=== PATIENT | male | born 1965 | race Caucasian/White ===

== ENCOUNTER 2017-12-12 09:56 | Observation (INO) | payer MEDICARE, OTHER ==
[2017-12-12 11:10] LABS: ADD MAN DIFF? NO
[2017-12-12 11:13] LABS: WHITE BLOOD COUNT 7.3 10^3/ul (4.8-10.8)
[2017-12-12 11:13] LABS: BASOPHILS % 0.1 % (0.0-2.0); EOSINOPHILS # 0.2 10^3/ul (0.0-0.5); EOSINOPHILS % 3.3 % (0.0-7.0); HEMATOCRIT 43.8 % (42.0-52.0); HEMOGLOBIN 14.6 g/dl (14.0-18.0); IMMATURE GRANS #M 0.02 10^3/ul; IMMATURE GRANS % (M) 0.3 %; LYMPHOCYTES # 1.3 10^3/ul (0.8-2.9); LYMPHOCYTES % 17.4 % (15.0-51.0); MEAN CORPUSCULAR HEMOGLOBIN 28.2 pg (29.0-33.0); MEAN CORPUSCULAR HGB CONC 33.3 g/dl (32.0-37.0); MEAN CORPUSCULAR VOLUME 84.7 fl (82.0-101.0); MEAN PLATELET VOLUME 11.5 fl (7.4-10.4); MONOCYTE # 0.6 10^3/ul (0.3-0.9); MONOCYTES % 7.6 % (0.0-11.0); NEUTROPHIL # 5.2 10^3/ul (1.6-7.5); NEUTROPHILS % 71.3 % (39.0-77.0); PLATELET COUNT 198 10^3/UL (140-415); RED BLOOD COUNT 5.17 10^6/ul (4.70-6.10)
[2017-12-12 11:31] LABS: ALANINE AMINOTRANSFERASE 17 IU/L (13-69); ALBUMIN 3.6 g/dl (3.3-4.9); ALBUMIN/GLOBULIN RATIO 1.05; ALKALINE PHOSPHATASE 136 IU/L (42-121); ANION GAP 13 (8-16); ASPARTATE AMINO TRANSFERASE 24 IU/L (15-46); BILIRUBIN,INDIRECT 0.3 mg/dl (0-1.1); BILIRUBIN,TOTAL 0.3 mg/dl (0.2-1.3); BLOOD UREA NITROGEN 15 mg/dl (7-20); CALCIUM 8.9 mg/dl (8.4-10.2); CARBON DIOXIDE 26 mmol/L (21-31); CHLORIDE 103 mmol/L (97-110); CREATININE 0.81 mg/dl (0.61-1.24); GLUCOSE 258 mg/dl (70-220); POTASSIUM 4.2 mmol/L (3.5-5.1); SODIUM 138 mmol/L (135-144)
[2017-12-12] MEDS: ASPIRIN 325 MG TAB PO (11:34)
[2017-12-12] MEDS: NITROGLYCERIN 2% 1 GM OINT PKT TD (11:34)
[2017-12-12 11:42] LABS: TROPONIN-I 0.024 ng/ml (0.000-0.120)
[2017-12-12] MEDS ORDERED: ACETAMINOPHEN 325 MG TAB PO (12:30)
[2017-12-12] MEDS ORDERED: ONDANSETRON 4 MG INJ IV ×2 (12:30→15:00)
[2017-12-12] MEDS ORDERED: morphine 2 MG INJ IV (15:00)
[2017-12-12] MEDS ORDERED: NACL 0.9% 3 ML SYG IV (15:00)
[2017-12-12 15:47] LABS: CREATINE KINASE 94 IU/L (23-200)
[2017-12-12] MEDS: SOD CHLORIDE 0.9% 1,000 ML IV (15:59)
[2017-12-12 16:00] LABS: CK INDEX 1.4; CK-MB 1.27 ng/ml (0.0-2.4); TROPONIN-I 0.019 ng/ml (0.000-0.120)
[2017-12-12] MEDS: FUROSEMIDE 40 MG TAB PO (17:05)
[2017-12-12] MEDS: INSULIN ASPART [NOVOLOG] 3 ML PEN SC ×2 (17:15→22:05)
[2017-12-12] MEDS: FAMOTIDINE 20 MG INJ IV (20:24)
[2017-12-12 21:13] LABS: CREATINE KINASE 93 IU/L (23-200)
[2017-12-12 21:25] LABS: CK INDEX 1.4; CK-MB 1.26 ng/ml (0.0-2.4); TROPONIN-I 0.017 ng/ml (0.000-0.120)
[2017-12-12] MEDS: ACETAMINOPHEN 325 MG TAB PO (22:42)
[2017-12-13] MEDS: ACCU-CHEK XX (01:11)
[2017-12-13] MEDS: FUROSEMIDE 40 MG TAB PO ×2 (05:20→17:25)
[2017-12-13 06:13] LABS: ADD MAN DIFF? NO
[2017-12-13 06:23] LABS: WHITE BLOOD COUNT 7.3 10^3/ul (4.8-10.8)
[2017-12-13 06:23] LABS: BASOPHILS % 0.4 % (0.0-2.0); EOSINOPHILS # 0.3 10^3/ul (0.0-0.5); HEMATOCRIT 45.7 % (42.0-52.0); HEMOGLOBIN 15.2 g/dl (14.0-18.0); IMMATURE GRANS #M 0.04 10^3/ul; IMMATURE GRANS % (M) 0.5 %; LYMPHOCYTES # 1.9 10^3/ul (0.8-2.9); LYMPHOCYTES % 26.2 % (15.0-51.0); MEAN CORPUSCULAR HEMOGLOBIN 27.9 pg (29.0-33.0); MEAN CORPUSCULAR HGB CONC 33.3 g/dl (32.0-37.0); MEAN PLATELET VOLUME 11.7 fl (7.4-10.4); MONOCYTE # 0.7 10^3/ul (0.3-0.9); MONOCYTES % 9.4 % (0.0-11.0); NEUTROPHIL # 4.4 10^3/ul (1.6-7.5); NEUTROPHILS % 59.5 % (39.0-77.0); PLATELET COUNT 203 10^3/UL (140-415); RED BLOOD COUNT 5.44 10^6/ul (4.70-6.10); RED CELL DISTRIBUTION WIDTH 14.3 % (11.5-14.5)
[2017-12-13 06:59] LABS: ALANINE AMINOTRANSFERASE 24 IU/L (13-69); ALBUMIN 3.5 g/dl (3.3-4.9); ALBUMIN/GLOBULIN RATIO 0.92; ALKALINE PHOSPHATASE 104 IU/L (42-121); ANION GAP 11 (8-16); ASPARTATE AMINO TRANSFERASE 21 IU/L (15-46); BILIRUBIN,INDIRECT 0.5 mg/dl (0-1.1); BILIRUBIN,TOTAL 0.5 mg/dl (0.2-1.3); BLOOD UREA NITROGEN 13 mg/dl (7-20); CALCIUM 8.7 mg/dl (8.4-10.2); CARBON DIOXIDE 29 mmol/L (21-31); CHLORIDE 102 mmol/L (97-110); CHOL/HDL RATIO 5.3 RATIO; CHOLESTEROL 170 mg/dl (100-200); CREATININE 0.85 mg/dl (0.61-1.24); GLUCOSE 155 mg/dl (70-220); HDL CHOLESTEROL 32 mg/dl (28-71); LDL CHOLESTEROL,CALCULATED 98 mg/dl; POTASSIUM 3.9 mmol/L (3.5-5.1); SODIUM 138 mmol/L (135-144); TOTAL PROTEIN 7.3 g/dl (6.1-8.1); TRIGLYCERIDES 201 mg/dl (0-149)
[2017-12-13 07:52] LABS: HEMOGLOBIN A1C 10.9 % (0-5.9)
[2017-12-13] MEDS: INSULIN ASPART [NOVOLOG] 3 ML PEN SC ×4 (08:01→22:49)
[2017-12-13] MEDS: INSULIN GLARGINE [LANTus] (100 UNITS/ML) SYG SC (08:01)
[2017-12-13] MEDS: ASPIRIN 81 MG TAB PO (08:46)
[2017-12-13] MEDS: TERBINAFINE 250 MG TAB PO (08:46)
[2017-12-13] MEDS: CLOPIDOGREL 75 MG TAB PO (08:46)
[2017-12-13] MEDS: BENAZEPRIL 40 MG TAB PO (08:47)
[2017-12-13] MEDS: FAMOTIDINE 20 MG INJ IV ×2 (08:47→20:13)
[2017-12-13] MEDS: ENOXAPARIN 30 MG/0.3 ML SYG SC (08:52)
[2017-12-13] MEDS: ACETAMINOPHEN 325 MG TAB PO (13:08)
[2017-12-13] MEDS: ISOSORBIDE DINITRATE 20 MG TAB PO ×2 (13:08→20:13)
[2017-12-13] MEDS: METOPROLOL 25 MG TAB PO (20:13)
[2017-12-14] MEDS: ACCU-CHEK XX (02:50)
[2017-12-14] MEDS: FUROSEMIDE 40 MG TAB PO (06:35)
[2017-12-14] MEDS: INSULIN ASPART [NOVOLOG] 3 ML PEN SC ×3 (07:55→18:20)
[2017-12-14] MEDS: ASPIRIN 81 MG TAB PO (08:24)
[2017-12-14] MEDS: TERBINAFINE 250 MG TAB PO (08:24)
[2017-12-14] MEDS: CLOPIDOGREL 75 MG TAB PO (08:24)
[2017-12-14] MEDS: ISOSORBIDE DINITRATE 20 MG TAB PO ×2 (08:25→12:16)
[2017-12-14] MEDS: FAMOTIDINE 20 MG INJ IV (08:25)
[2017-12-14] MEDS: BENAZEPRIL 40 MG TAB PO (08:25)
[2017-12-14] MEDS: METOPROLOL 25 MG TAB PO (08:27)
[2017-12-14] MEDS: ENOXAPARIN 30 MG/0.3 ML SYG SC (08:30)
[2017-12-14] MEDS: INSULIN GLARGINE [LANTus] (100 UNITS/ML) SYG SC (08:32)
[2017-12-14] MEDS: REGADENOSON 0.4 MG/5 ML SYG (10:17)
[2017-12-14] MEDS ORDERED: GLUCOSE GEL 15 GRAM TUBE BUCCAL (16:00)
[2017-12-14] MEDS ORDERED: GLUCOSE GEL 15 GRAM TUBE PO ×2 (16:00)
[2017-12-14] MEDS ORDERED: DEXTROSE 50% 50 ML SYRINGE IV ×2 (16:00)
[2017-12-14] MEDS ORDERED: GLUCAGON 1 MG INJ IM (16:00)
[2017-12-14] MEDS ORDERED: ACCU-CHEK XX (17:25)
[2017-12-15] MEDS ORDERED: LINAGLIPTIN 5 MG TABLET PO (09:00)
== END 2017-12-14 19:24 | disposition left against medical advice (07) ==
LOC: E/R 09:56 → TEL 12:16
DX: I25.10 Atherosclerotic heart disease of native coronary artery without angina pectoris (principal); Z95.5 Presence of coronary angioplasty implant and graft; I42.9 Cardiomyopathy, unspecified; I10 Essential (primary) hypertension; E78.5 Hyperlipidemia, unspecified; E11.65 Type 2 diabetes mellitus with hyperglycemia; E66.01 Morbid (severe) obesity due to excess calories; Z68.41 Body mass index [BMI] 40.0-44.9, adult; Z79.4 Long term (current) use of insulin; Z79.82 Long term (current) use of aspirin
CPT/HCPCS: 36415; 71045; 78452; 80053; 80061; 82550; 82553; 82962; 83036; 84484; 85025; 93005; 93017; 93306; 99217; 99285-25; G0378

== ENCOUNTER 2018-03-01 09:38 | Emergency (ER) | payer MEDICARE, OTHER ==
[2018-03-01 10:50] LABS: ADD MAN DIFF? NO
[2018-03-01 10:54] LABS: WHITE BLOOD COUNT 8.6 10^3/ul (4.8-10.8)
[2018-03-01 10:54] LABS: BASOPHILS % 0.2 % (0.0-2.0); EOSINOPHILS # 0.1 10^3/ul (0.0-0.5); EOSINOPHILS % 1.1 % (0.0-7.0); HEMATOCRIT 43.6 % (42.0-52.0); HEMOGLOBIN 14.4 g/dl (14.0-18.0); LYMPHOCYTES # 1.1 10^3/ul (0.8-2.9); LYMPHOCYTES % 12.4 % (15.0-51.0); MEAN CORPUSCULAR VOLUME 84.8 fl (82.0-101.0); MEAN PLATELET VOLUME 11.9 fl (7.4-10.4); MONOCYTE # 0.6 10^3/ul (0.3-0.9); NEUTROPHIL # 6.8 10^3/ul (1.6-7.5); NEUTROPHILS % 78.9 % (39.0-77.0); PLATELET COUNT 221 10^3/UL (140-415); RED BLOOD COUNT 5.14 10^6/ul (4.70-6.10); RED CELL DISTRIBUTION WIDTH 13.8 % (11.5-14.5)
[2018-03-01 10:55] LABS: ADD UMIC YES; UR ASCORBIC ACID NEGATIVE (NEGATIVE); UR BILIRUBIN (Dip) NEGATIVE (NEGATIVE); UR BLOOD (Dip) 1+ mg/dL (NEGATIVE); UR CLARITY SLIGHTLY CLOUDY (CLEAR); UR COLOR YELLOW (YELLOW); UR GLUCOSE (Dip) 3+ mg/dL (NEGATIVE); UR KETONES (Dip) 1+ mg/dL (NEGATIVE); UR LEUKOCYTE ESTERASE (Dip) NEGATIVE Leu/ul (NEGATIVE); UR MUCUS FEW /HPF (NONE SEEN); UR NITRITE (Dip) NEGATIVE (NEGATIVE); UR RBC 3 /HPF (0-5); UR SPECIFIC GRAVITY (Dip) 1.028 (1.003-1.030); UR TOTAL PROTEIN (Dip) 3+ mg/dl (NEGATIVE); UR UROBILINOGEN (Dip) 2+ mg/dL (NEGATIVE); UR WBC 2 /HPF (0-5)
[2018-03-01] MEDS: morphine 4 MG/ML VIAL IV (11:05)
[2018-03-01] MEDS: IBUPROFEN 800 MG TAB PO (11:06)
[2018-03-01] MEDS: CEFEPIME 2GM/50 ML (PMX) 50 ML IVPB (11:06)
[2018-03-01] MEDS: ACETAMINOPHEN 500 MG TAB PO (11:06)
[2018-03-01] MEDS: SODIUM CHLORIDE 0.9% 1L BAG IV* (11:06)
[2018-03-01] MEDS: ONDANSETRON 4 MG INJ IV (11:07)
[2018-03-01 11:13] LABS: LACTIC ACID 1.1 mmol/L (0.5-2.0)
[2018-03-01 11:14] LABS: ALANINE AMINOTRANSFERASE 18 IU/L (13-69); ALBUMIN 3.1 g/dl (3.3-4.9); ALBUMIN/GLOBULIN RATIO 0.83; ALKALINE PHOSPHATASE 111 IU/L (42-121); AMYLASE 66 U/L (11-123); ANION GAP 11 (5-13); ASPARTATE AMINO TRANSFERASE 21 IU/L (15-46); BILIRUBIN,INDIRECT 0.7 mg/dl (0-1.1); BILIRUBIN,TOTAL 0.7 mg/dl (0.2-1.3); BLOOD UREA NITROGEN 16 mg/dl (7-20); CALCIUM 8.9 mg/dl (8.4-10.2); CARBON DIOXIDE 25 mmol/L (21-31); CHLORIDE 102 mmol/L (97-110); CREATININE 0.99 mg/dl (0.61-1.24); Estimated GFR > 60 mL/min (>60); GLUCOSE 253 mg/dl (70-220); LIPASE 64 U/L (23-300); POTASSIUM 3.9 mmol/L (3.5-5.1); SODIUM 138 mmol/L (135-144); TOTAL PROTEIN 6.8 g/dl (6.1-8.1)
[2018-03-01 11:15] LABS: INR 1.12; PROTIME 14.6 Sec (11.9-14.9); PT RATIO 1.1
[2018-03-01 11:16] LABS: PARTIAL THROMBOPLASTIN TIME 33.2 Sec (23.0-35.0)
[2018-03-01] MEDS: ALBUTEROL 0.083% (NEB) 2.5 MG/3 ML AMP NEB (11:19)
[2018-03-01] MEDS: IPRATROPIUM (NEB) 0.5 MG/2.5 ML AMP NEB (11:19)
[2018-03-01 11:23] LABS: B-TYPE NATRIURETIC PEPTIDE 2560 PG/ML (0-125)
[2018-03-01 11:25] LABS: TROPONIN-I 0.093 ng/ml (0.000-0.120)
[2018-03-01] MEDS: IOHEXOL 300MG/ML 150 ML BTL (11:58)
[2018-03-01] MEDS: SOD CHLORIDE 0.9% 100 ML (11:58)
[2018-03-01] MEDS: VANCOMYCIN 1 GM (PMX) 250 ML IVPB (12:24)
== END 2018-03-01 14:30 | disposition home or self-care (01) ==
LOC: E/R 09:38
DX: R10.13 Epigastric pain (principal); J06.9 Acute upper respiratory infection, unspecified; I11.0 Hypertensive heart disease with heart failure; I50.9 Heart failure, unspecified; E11.65 Type 2 diabetes mellitus with hyperglycemia; R65.10 Systemic inflammatory response syndrome (SIRS) of non-infectious origin without acute organ dysfunction; R05 Cough; Z86.73 Personal history of transient ischemic attack (TIA), and cerebral infarction without residual deficits; Z98.61 Coronary angioplasty status; Z79.82 Long term (current) use of aspirin; Z79.4 Long term (current) use of insulin
CPT/HCPCS: 36415; 71045; 74177; 80053; 81001; 82150; 83605; 83690; 83880; 84484; 85025; 85610; 85730; 87040; 87086; 87400; 93005; 94664; 96365; 96375; 99291-25

== ENCOUNTER → 2018-04-15 | Day surgery (SDC) | payer OTHER ==
[~2018-04-15] MED LIST: ALBUTEROL 0.083% (NEB) 2.5 MG/3 ML AMP HHN; DIPHENHYDRAMINE 50 MG INJ IV; EPHEDrine SULFATE 50 MG/5 ML SYG IV; FENTAnyl 50 MCG/ML VIAL IV; LABETALOL HCL 20MG INJ IV; MIDAZOLAM 1 MG/ML 2 ML INJ IV; ONDANSETRON 4 MG INJ IV; hydrALAzine 20 MG INJ IV
== END | disposition home or self-care (01) ==
LOC: SUR 14:31
DX: K92.1 Melena (principal); K29.50 Unspecified chronic gastritis without bleeding; D12.3 Benign neoplasm of transverse colon; I10 Essential (primary) hypertension; E78.5 Hyperlipidemia, unspecified; E11.9 Type 2 diabetes mellitus without complications; E66.9 Obesity, unspecified
CPT/HCPCS: 43239; 88305; 88312

== ENCOUNTER 2018-05-11 14:10 | Inpatient (IN) | payer MEDICARE, OTHER ==
[2018-05-11 14:45] LABS: ADD MAN DIFF? NO
[2018-05-11 14:46] LABS: BASOPHIL # 0.1 10^3/ul (0.0-0.1); BASOPHILS % 0.4 % (0.0-2.0); EOSINOPHILS # 0.1 10^3/ul (0.0-0.5); EOSINOPHILS % 0.4 % (0.0-7.0); HEMATOCRIT 33.3 % (42.0-52.0); HEMOGLOBIN 10.5 g/dl (14.0-18.0); LYMPHOCYTES # 1.4 10^3/ul (0.8-2.9); LYMPHOCYTES % 6.9 % (15.0-51.0); MEAN CORPUSCULAR HEMOGLOBIN 25.3 pg (29.0-33.0); MEAN CORPUSCULAR HGB CONC 31.5 g/dl (32.0-37.0); MEAN CORPUSCULAR VOLUME 80.2 fl (82.0-101.0); MEAN PLATELET VOLUME 9.9 fl (7.4-10.4); MONOCYTE # 1.3 10^3/ul (0.3-0.9); NEUTROPHIL # 17.7 10^3/ul (1.6-7.5); NEUTROPHILS % 85.8 % (39.0-77.0); PLATELET COUNT 474 10^3/UL (140-415); RED BLOOD COUNT 4.15 10^6/ul (4.70-6.10); RED CELL DISTRIBUTION WIDTH 14.4 % (11.5-14.5)
[2018-05-11 14:46] LABS: WHITE BLOOD COUNT 20.7 10^3/ul (4.8-10.8)
[2018-05-11 15:03] LABS: ALANINE AMINOTRANSFERASE 7 IU/L (13-69); ALBUMIN 3.7 g/dl (3.3-4.9); ALBUMIN/GLOBULIN RATIO 0.63; ALKALINE PHOSPHATASE 220 IU/L (42-121); ANION GAP 10 (5-13); ASPARTATE AMINO TRANSFERASE 36 IU/L (15-46); BLOOD UREA NITROGEN 22 mg/dl (7-20); CALCIUM 9.7 mg/dl (8.4-10.2); CARBON DIOXIDE 32 mmol/L (21-31); CHLORIDE 89 mmol/L (97-110); CREATININE 1.06 mg/dl (0.61-1.24); Estimated GFR > 60 mL/min (>60); GLUCOSE 218 mg/dl (70-220); POTASSIUM 4.3 mmol/L (3.5-5.1); SODIUM 131 mmol/L (135-144); TOTAL PROTEIN 9.5 g/dl (6.1-8.1)
[2018-05-11] MEDS: PIPER-TAZO 3.375 GM IV (PMX) 100 ML IVPB (15:03)
[2018-05-11] MEDS: SODIUM CHLORIDE 0.9% 1L BAG IV* (15:03)
[2018-05-11 15:05] LABS: INR 1.08; PROTIME 14.1 Sec (11.9-14.9); PT RATIO 1.1
[2018-05-11] MEDS: VANCOMYCIN 1 GM (PMX) 250 ML IVPB (15:05)
[2018-05-11 15:06] LABS: PARTIAL THROMBOPLASTIN TIME 31.4 Sec (23.0-35.0)
[2018-05-11 15:14] LABS: TROPONIN-I < 0.012 ng/ml (0.000-0.120)
[2018-05-11 15:26] LABS: ADD UMIC YES; UR ASCORBIC ACID 40 mg/dL (NEGATIVE); UR BACTERIA MANY /HPF (NONE SEEN); UR BILIRUBIN (Dip) NEGATIVE (NEGATIVE); UR BLOOD (Dip) 1+ mg/dL (NEGATIVE); UR CLARITY CLOUDY (CLEAR); UR COLOR AMBER (YELLOW); UR GLUCOSE (Dip) 1+ mg/dL (NEGATIVE); UR KETONES (Dip) NEGATIVE (NEGATIVE); UR LEUKOCYTE ESTERASE (Dip) 3+ Leu/ul (NEGATIVE); UR MUCUS FEW /HPF (NONE SEEN); UR NITRITE (Dip) NEGATIVE (NEGATIVE); UR NONSQUAMOUS EPITHELIAL CELL 2 /HPF (NONE SEEN); UR RBC 9 /HPF (0-5); UR SPECIFIC GRAVITY (Dip) 1.018 (1.003-1.030); UR TOTAL PROTEIN (Dip) 2+ mg/dl (NEGATIVE); UR UROBILINOGEN (Dip) 1+ mg/dL (NEGATIVE); UR WBC > 182 /HPF (0-5)
[2018-05-11 15:53] LABS: AADO2 Arterial 164.2 mmHg (7.0-24.0); Allen Test ACCEPTAB; Arterial Base Excess 4.3 mmol/L (-3.0-3); Arterial Blood Gas Oxygen Sat 99.3 mmHG (95.0-98.0); Arterial COHb 0.3 % (0.0-3.0); Arterial Fraction of Oxyhgb 98.6 % (93.0-99.0); Arterial MetHb 0.4 % (0.0-1.5); Arterial pCO2 44.1 mmhg (35-45); MODE VENT - AC; Site Left Radial
[2018-05-11] MEDS: ACETAMINOPHEN 650 MG SUPP PR (16:54)
[2018-05-11] MEDS: SOD CHLORIDE 0.9% 1,000 ML IV (17:00)
[2018-05-11] MEDS: LIDOCAINE 1% (MPF) 5 ML VIAL SC (17:00)
[2018-05-11] MEDS: LORAZEPAM 2 MG INJ IV (18:00)
[2018-05-11] MEDS: NORepinephrine 8MG/250 ML (PMX 250 ML IV (18:00)
[2018-05-11] MEDS: VECURONIUM 10 MG VIAL IV (18:30)
[2018-05-11 20:56] LABS: LACTIC ACID 1.5 mmol/L (0.5-2.0)
[2018-05-11 20:58] LABS: CREATINE KINASE 58 IU/L (23-200)
[2018-05-11 21:09] LABS: CK INDEX 1.8; CK-MB 1.07 ng/ml (0.0-2.4); TROPONIN-I 0.054 ng/ml (0.000-0.120)
[2018-05-12] MEDS ORDERED: ONDANSETRON 4 MG INJ IV
[2018-05-12] MEDS ORDERED: BISACODYL 10 MG SUPP PR
[2018-05-12] MEDS ORDERED: IPRATROPIUM (NEB) 0.5 MG/2.5 ML AMP NEB
[2018-05-12] MEDS ORDERED: NACL 0.9% 3 ML SYG IV
[2018-05-12] MEDS ORDERED: DOCUSATE SODIUM 100 MG CAP PO
[2018-05-12] MEDS ORDERED: MAGNESIUM HYDROXIDE 30ML CUP PO
[2018-05-12] MEDS ORDERED: ACETAMINOPHEN 650MG/20.3ML CUP PO
[2018-05-12] MEDS ORDERED: ALBUTEROL 0.083% (NEB) 2.5 MG/3 ML AMP NEB
[2018-05-12 00:24] LABS: WHITE BLOOD COUNT 17.8 10^3/ul (4.8-10.8)
[2018-05-12 00:24] LABS: ADD MAN DIFF? NO; BASOPHIL # 0.1 10^3/ul (0.0-0.1); BASOPHILS % 0.3 % (0.0-2.0); EOSINOPHILS % 0.2 % (0.0-7.0); HEMATOCRIT 27.9 % (42.0-52.0); HEMOGLOBIN 8.8 g/dl (14.0-18.0); LYMPHOCYTES # 1.5 10^3/ul (0.8-2.9); LYMPHOCYTES % 8.5 % (15.0-51.0); MEAN CORPUSCULAR HEMOGLOBIN 25.1 pg (29.0-33.0); MEAN CORPUSCULAR HGB CONC 31.5 g/dl (32.0-37.0); MEAN CORPUSCULAR VOLUME 79.7 fl (82.0-101.0); MEAN PLATELET VOLUME 9.8 fl (7.4-10.4); MONOCYTE # 1.5 10^3/ul (0.3-0.9); MONOCYTES % 8.3 % (0.0-11.0); NEUTROPHIL # 14.7 10^3/ul (1.6-7.5); NEUTROPHILS % 82.3 % (39.0-77.0); PLATELET COUNT 363 10^3/UL (140-415); RED CELL DISTRIBUTION WIDTH 14.6 % (11.5-14.5)
[2018-05-12] MEDS ORDERED: GLUCOSE GEL 15 GRAM TUBE BUCCAL (00:30)
[2018-05-12] MEDS ORDERED: GLUCAGON 1 MG INJ IM (00:30)
[2018-05-12] MEDS ORDERED: DEXTROSE 50% 50 ML SYRINGE IV ×2 (00:30)
[2018-05-12] MEDS ORDERED: GLUCOSE GEL 15 GRAM TUBE PO ×2 (00:30)
[2018-05-12 00:49] LABS: ANION GAP 11 (5-13); BLOOD UREA NITROGEN 20 mg/dl (7-20); CALCIUM 8.8 mg/dl (8.4-10.2); CARBON DIOXIDE 29 mmol/L (21-31); CHLORIDE 98 mmol/L (97-110); CREATINE KINASE 57 IU/L (23-200); Estimated GFR > 60 mL/min (>60); GLUCOSE 165 mg/dl (70-220); MAGNESIUM 1.8 mg/dl (1.7-2.5); PHOSPHORUS 4.4 mg/dl (2.5-4.9); POTASSIUM 4.3 mmol/L (3.5-5.1); SODIUM 138 mmol/L (135-144)
[2018-05-12 01:01] LABS: CK INDEX 2.1; CK-MB 1.18 ng/ml (0.0-2.4); TROPONIN-I 0.067 ng/ml (0.000-0.120)
[2018-05-12 02:10] LABS: HEMOGLOBIN A1C 8.5 % (0-5.9)
[2018-05-12] MEDS: VALPROIC ACID LIQUID CUP 250 MG/5 ML CUP GTB ×3 (03:32→16:07)
[2018-05-12 07:50] LABS: CREATINE KINASE 45 IU/L (23-200)
[2018-05-12 08:01] LABS: CK INDEX 2.3; CK-MB 1.02 ng/ml (0.0-2.4); TROPONIN-I 0.069 ng/ml (0.000-0.120)
[2018-05-12] MEDS ORDERED: ASPIRIN (EC) 81 MG TAB PO (09:00)
[2018-05-12] MEDS: NORepinephrine 8MG/250 ML (PMX 250 ML IV (09:04)
[2018-05-12] MEDS: NS + KCL 20 MEQ 1,000 ML IV ×2 (09:04→09:45)
[2018-05-12] MEDS: INSULIN ASPART [NOVOLOG] 3 ML PEN SC ×4 (09:30→17:57)
[2018-05-12] MEDS: NPH, HUMAN INSULIN ISOPHANE 3ML VIAL SC ×3 (11:06→17:59)
[2018-05-12] MEDS: VECURONIUM 10 MG VIAL IV (11:12)
[2018-05-12] MEDS: PANTOPRAZOLE 40 MG INJ IV (12:36)
[2018-05-12] MEDS: ASPIRIN 81 MG TAB PEG (12:37)
[2018-05-12] MEDS: ENOXAPARIN 30 MG/0.3 ML SYG SC (12:40)
[2018-05-12] MEDS ORDERED: VANCOMYCIN IV PER PHARMACY XX (15:00)
[2018-05-12] MEDS: PIPER-TAZO 3.375 GM IV (PMX) 100 ML IVPB ×2 (16:07→21:18)
[2018-05-12] MEDS: VANCOMYCIN HCL 1.25 GM in SOD CHLORIDE 0.9% 250 ML IVPB (17:55)
[2018-05-12] MEDS: ATORVASTATIN 80 MG TAB GTB (21:18)
[2018-05-12 22:40] LABS: ANION GAP 7 (5-13); BLOOD UREA NITROGEN 21 mg/dl (7-20); CALCIUM 8.6 mg/dl (8.4-10.2); CARBON DIOXIDE 31 mmol/L (21-31); CHLORIDE 100 mmol/L (97-110); CREATININE 0.75 mg/dl (0.61-1.24); Estimated GFR > 60 mL/min (>60); GLUCOSE 164 mg/dl (70-220); MAGNESIUM 1.9 mg/dl (1.7-2.5); SODIUM 138 mmol/L (135-144)
[2018-05-13] MEDS: VALPROIC ACID LIQUID CUP 250 MG/5 ML CUP GTB ×3 (00:17→17:44)
[2018-05-13] MEDS: SOD CHLORIDE 0.9% 500 ML IV (00:41)
[2018-05-13] MEDS: NS + KCL 20 MEQ 1,000 ML IV ×4 (00:41→23:14)
[2018-05-13] MEDS: NPH, HUMAN INSULIN ISOPHANE 3ML VIAL SC ×3 (00:44→17:54)
[2018-05-13 04:57] LABS: ADD MAN DIFF? NO
[2018-05-13 04:59] LABS: WHITE BLOOD COUNT 7.2 10^3/ul (4.8-10.8)
[2018-05-13 04:59] LABS: BASOPHILS % 0.6 % (0.0-2.0); EOSINOPHILS # 0.2 10^3/ul (0.0-0.5); EOSINOPHILS % 3.3 % (0.0-7.0); HEMATOCRIT 22.5 % (42.0-52.0); LYMPHOCYTES # 1.2 10^3/ul (0.8-2.9); LYMPHOCYTES % 16.2 % (15.0-51.0); MEAN CORPUSCULAR HEMOGLOBIN 25.5 pg (29.0-33.0); MEAN CORPUSCULAR HGB CONC 31.1 g/dl (32.0-37.0); MEAN CORPUSCULAR VOLUME 82.1 fl (82.0-101.0); MONOCYTE # 0.8 10^3/ul (0.3-0.9); MONOCYTES % 11.1 % (0.0-11.0); NEUTROPHILS % 68.4 % (39.0-77.0); PLATELET COUNT 272 10^3/UL (140-415); RED BLOOD COUNT 2.74 10^6/ul (4.70-6.10); RED CELL DISTRIBUTION WIDTH 15.1 % (11.5-14.5)
[2018-05-13 05:16] LABS: ANION GAP 5 (5-13); BLOOD UREA NITROGEN 22 mg/dl (7-20); CALCIUM 8.5 mg/dl (8.4-10.2); CARBON DIOXIDE 30 mmol/L (21-31); CHLORIDE 104 mmol/L (97-110); CREATININE 0.78 mg/dl (0.61-1.24); Estimated GFR > 60 mL/min (>60); GLUCOSE 164 mg/dl (70-220); SODIUM 139 mmol/L (135-144)
[2018-05-13] MEDS: VANCOMYCIN HCL 1.25 GM in SOD CHLORIDE 0.9% 250 ML IVPB ×2 (05:50→17:49)
[2018-05-13] MEDS: PANTOPRAZOLE 40 MG INJ IV (05:51)
[2018-05-13] MEDS: INSULIN ASPART [NOVOLOG] 3 ML PEN SC ×4 (05:51→17:58)
[2018-05-13] MEDS: PIPER-TAZO 3.375 GM IV (PMX) 100 ML IVPB ×3 (05:51→21:57)
[2018-05-13] MEDS: NORepinephrine 8MG/250 ML (PMX 250 ML IV (06:12)
[2018-05-13] MEDS: ASPIRIN 81 MG TAB PEG (09:34)
[2018-05-13 13:51] LABS: IMMEDIATE SPIN CROSSMATCH 1 1
[2018-05-13] MEDS: ENOXAPARIN 30 MG/0.3 ML SYG SC (17:48)
[2018-05-13] MEDS: ATORVASTATIN 80 MG TAB GTB (21:56)
[2018-05-14] MEDS: VALPROIC ACID LIQUID CUP 250 MG/5 ML CUP GTB ×4 (00:12→23:31)
[2018-05-14] MEDS: NPH, HUMAN INSULIN ISOPHANE 3ML VIAL SC ×3 (00:15→16:20)
[2018-05-14 04:45] LABS: WHITE BLOOD COUNT 6.2 10^3/ul (4.8-10.8)
[2018-05-14 04:45] LABS: ADD MAN DIFF? NO; BASOPHILS % 0.3 % (0.0-2.0); EOSINOPHILS # 0.3 10^3/ul (0.0-0.5); HEMATOCRIT 22.9 % (42.0-52.0); HEMOGLOBIN 7.1 g/dl (14.0-18.0); LYMPHOCYTES # 1.2 10^3/ul (0.8-2.9); LYMPHOCYTES % 18.9 % (15.0-51.0); MEAN CORPUSCULAR HEMOGLOBIN 25.7 pg (29.0-33.0); MONOCYTE # 0.6 10^3/ul (0.3-0.9); MONOCYTES % 9.7 % (0.0-11.0); NEUTROPHIL # 4.1 10^3/ul (1.6-7.5); NEUTROPHILS % 66.8 % (39.0-77.0); PLATELET COUNT 238 10^3/UL (140-415); RED BLOOD COUNT 2.76 10^6/ul (4.70-6.10); RED CELL DISTRIBUTION WIDTH 15.5 % (11.5-14.5)
[2018-05-14 05:06] LABS: ANION GAP 7 (5-13); BLOOD UREA NITROGEN 17 mg/dl (7-20); CALCIUM 8.1 mg/dl (8.4-10.2); CARBON DIOXIDE 29 mmol/L (21-31); CHLORIDE 106 mmol/L (97-110); CREATININE 0.54 mg/dl (0.61-1.24); Estimated GFR > 60 mL/min (>60); GLUCOSE 96 mg/dl (70-220); MAGNESIUM 1.9 mg/dl (1.7-2.5); PHOSPHORUS 2.7 mg/dl (2.5-4.9); SODIUM 142 mmol/L (135-144)
[2018-05-14] MEDS: PIPER-TAZO 3.375 GM IV (PMX) 100 ML IVPB ×3 (05:49→21:10)
[2018-05-14] MEDS: PANTOPRAZOLE 40 MG INJ IV (05:49)
[2018-05-14] MEDS: INSULIN ASPART [NOVOLOG] 3 ML PEN SC ×4 (05:54→18:00)
[2018-05-14] MEDS: VANCOMYCIN HCL 1.25 GM in SOD CHLORIDE 0.9% 250 ML IVPB ×2 (06:44→16:27)
[2018-05-14 08:46] LABS: AADO2 Arterial 109.1 mmHg (7.0-24.0); Allen Test ACCEPTAB; Arterial Base Excess 2.5 mmol/L (-3.0-3); Arterial Blood Gas Oxygen Sat 98.7 mmHG (95.0-98.0); Arterial COHb 0.3 % (0.0-3.0); Arterial Fraction of Oxyhgb 98.1 % (93.0-99.0); Arterial HCO3 26.3 mmol/L (22.0-26.0); Arterial MetHb 0.3 % (0.0-1.5); MODE VENT - AC; Site Right Radial
[2018-05-14] MEDS: ASPIRIN 81 MG TAB PEG (09:25)
[2018-05-14] MEDS: NS + KCL 20 MEQ 1,000 ML IV ×2 (09:50→21:10)
[2018-05-14 11:24] LABS: HEMATOCRIT 24.3 % (42.0-52.0); HEMOGLOBIN 7.6 g/dl (14.0-18.0)
[2018-05-14] MEDS: ENOXAPARIN 30 MG/0.3 ML SYG SC (11:24)
[2018-05-14] MEDS: MAGNESIUM SULFATE 1 GM/D5W 100 ML IVPB (14:25)
[2018-05-14] MEDS: FUROSEMIDE 20 MG INJ IV (14:25)
[2018-05-14] MEDS: ATORVASTATIN 80 MG TAB GTB (21:11)
[2018-05-14] MEDS: BENAZEPRIL 10 MG TAB PO (21:12)
[2018-05-14] MEDS: LORAZEPAM 4 MG/ML VIAL IV (23:31)
[2018-05-15] MEDS: NPH, HUMAN INSULIN ISOPHANE 3ML VIAL SC ×3 (00:54→17:01)
[2018-05-15] MEDS: PIPER-TAZO 3.375 GM IV (PMX) 100 ML IVPB (05:31)
[2018-05-15] MEDS: INSULIN ASPART [NOVOLOG] 3 ML PEN SC ×4 (05:32→16:56)
[2018-05-15] MEDS: VANCOMYCIN HCL 1.25 GM in SOD CHLORIDE 0.9% 250 ML IVPB (05:32)
[2018-05-15] MEDS: PANTOPRAZOLE 40 MG INJ IV (05:32)
[2018-05-15] MEDS: NS + KCL 20 MEQ 1,000 ML IV ×3 (07:45→20:25)
[2018-05-15] MEDS: BENAZEPRIL 10 MG TAB PO ×2 (09:04→22:12)
[2018-05-15] MEDS: ASPIRIN 81 MG TAB PEG (09:04)
[2018-05-15] MEDS: ENOXAPARIN 30 MG/0.3 ML SYG SC (09:04)
[2018-05-15] MEDS: VALPROIC ACID LIQUID CUP 250 MG/5 ML CUP GTB ×2 (09:04→16:02)
[2018-05-15] MEDS: FUROSEMIDE 20 MG INJ IV (09:05)
[2018-05-15] MEDS: ATORVASTATIN 80 MG TAB GTB (22:12)
[2018-05-15] MEDS: CEFEPIME 1GM/50 ML (PMX) 50 ML IVPB (22:13)
[2018-05-16] MEDS: VALPROIC ACID LIQUID CUP 250 MG/5 ML CUP GTB ×3 (01:05→16:39)
[2018-05-16] MEDS: NPH, HUMAN INSULIN ISOPHANE 3ML VIAL SC ×4 (01:24→16:43)
[2018-05-16] MEDS: INSULIN ASPART [NOVOLOG] 3 ML PEN SC ×4 (06:00→18:00)
[2018-05-16] MEDS: PANTOPRAZOLE 40 MG INJ IV (06:12)
[2018-05-16] MEDS: FUROSEMIDE 20 MG INJ IV (08:52)
[2018-05-16] MEDS: CEFEPIME 1GM/50 ML (PMX) 50 ML IVPB ×2 (08:52→22:15)
[2018-05-16] MEDS: ASPIRIN 81 MG TAB PEG (08:53)
[2018-05-16] MEDS: BENAZEPRIL 10 MG TAB PO ×2 (08:53→20:32)
[2018-05-16] MEDS: ENOXAPARIN 30 MG/0.3 ML SYG SC (09:16)
[2018-05-16] MEDS: NS + KCL 20 MEQ 1,000 ML IV ×2 (10:15→13:21)
[2018-05-16] MEDS: ATORVASTATIN 80 MG TAB GTB (20:30)
[2018-05-16 21:43] LABS: AADO2 Arterial 625.2 mmHg (7.0-24.0); Allen Test ACCEPTAB; Arterial Base Excess 2.5 mmol/L (-3.0-3); Arterial Blood Gas Oxygen Sat 84.4 mmHG (95.0-98.0); Arterial COHb 0.1 % (0.0-3.0); Arterial Fraction of Oxyhgb 84.1 % (93.0-99.0); Arterial HCO3 26.8 mmol/L (22.0-26.0); Arterial MetHb 0.3 % (0.0-1.5); Arterial pCO2 40.2 mmhg (35-45); MODE VENT - AC; Site Right Radial
[2018-05-16] MEDS: morphine 2 MG INJ IV (22:10)
[2018-05-16] MEDS ORDERED: FUROSEMIDE 40 MG INJ (22:18)
[2018-05-16] MEDS ORDERED: HALOPERIDOL 5 MG INJ (22:21)
[2018-05-16] MEDS: HALOPERIDOL 5 MG INJ IV (22:28)
[2018-05-16] MEDS: FUROSEMIDE 40 MG INJ IV (22:28)
[2018-05-17] MEDS: VALPROIC ACID LIQUID CUP 250 MG/5 ML CUP GTB ×4 (00:31→23:44)
[2018-05-17 00:35] LABS: AADO2 Arterial 444.8 mmHg (7.0-24.0); Allen Test ACCEPTAB; Arterial Base Excess 2.3 mmol/L (-3.0-3); Arterial Blood Gas Oxygen Sat 98.9 mmHG (95.0-98.0); Arterial COHb 0.1 % (0.0-3.0); Arterial Fraction of Oxyhgb 98.4 % (93.0-99.0); Arterial HCO3 26.5 mmol/L (22.0-26.0); Arterial MetHb 0.4 % (0.0-1.5); Arterial pCO2 39.6 mmhg (35-45); MODE VENT - AC; Site Right Radial
[2018-05-17 04:37] LABS: ADD MAN DIFF? NO
[2018-05-17 04:39] LABS: BASOPHIL # 0.1 10^3/ul (0.0-0.1); BASOPHILS % 0.3 % (0.0-2.0); EOSINOPHILS # 0.1 10^3/ul (0.0-0.5); EOSINOPHILS % 0.5 % (0.0-7.0); HEMATOCRIT 28.4 % (42.0-52.0); LYMPHOCYTES # 1.7 10^3/ul (0.8-2.9); LYMPHOCYTES % 9.7 % (15.0-51.0); MEAN CORPUSCULAR HGB CONC 31.7 g/dl (32.0-37.0); MEAN CORPUSCULAR VOLUME 82.1 fl (82.0-101.0); MEAN PLATELET VOLUME 10.5 fl (7.4-10.4); MONOCYTE # 1.1 10^3/ul (0.3-0.9); MONOCYTES % 6.5 % (0.0-11.0); NEUTROPHIL # 14.1 10^3/ul (1.6-7.5); NEUTROPHILS % 82.5 % (39.0-77.0); PLATELET COUNT 307 10^3/UL (140-415); RED BLOOD COUNT 3.46 10^6/ul (4.70-6.10); RED CELL DISTRIBUTION WIDTH 15.7 % (11.5-14.5)
[2018-05-17 04:39] LABS: WHITE BLOOD COUNT 17.1 10^3/ul (4.8-10.8)
[2018-05-17 05:03] LABS: ANION GAP 4 (5-13); BLOOD UREA NITROGEN 13 mg/dl (7-20); CALCIUM 8.6 mg/dl (8.4-10.2); CARBON DIOXIDE 30 mmol/L (21-31); CHLORIDE 101 mmol/L (97-110); CREATININE 0.89 mg/dl (0.61-1.24); Estimated GFR > 60 mL/min (>60); GLUCOSE 81 mg/dl (70-220); POTASSIUM 4.2 mmol/L (3.5-5.1); SODIUM 135 mmol/L (135-144)
[2018-05-17] MEDS: LANSOPRAZOLE 30 MG CAP GTB (05:55)
[2018-05-17] MEDS: INSULIN ASPART [NOVOLOG] 3 ML PEN SC ×5 (05:55→23:38)
[2018-05-17] MEDS: NPH, HUMAN INSULIN ISOPHANE 3ML VIAL SC ×4 (08:00→23:43)
[2018-05-17] MEDS ORDERED: VANCOMYCIN IV PER PHARMACY XX ×2 (09:00)
[2018-05-17] MEDS: CEFEPIME 1GM/50 ML (PMX) 50 ML IVPB ×2 (09:17→21:41)
[2018-05-17] MEDS: ENOXAPARIN 40 MG/0.4 ML SYG SC (09:20)
[2018-05-17] MEDS: FUROSEMIDE 20 MG INJ IV (09:26)
[2018-05-17] MEDS: ASPIRIN 81 MG TAB PEG (09:27)
[2018-05-17] MEDS: BENAZEPRIL 10 MG TAB PO ×2 (09:27→21:41)
[2018-05-17] MEDS: VANCOMYCIN HCL 1.25 GM in SOD CHLORIDE 0.9% 250 ML IVPB ×2 (10:58→23:19)
[2018-05-17] MEDS: ATORVASTATIN 80 MG TAB GTB (21:44)
[2018-05-18 05:16] LABS: ADD MAN DIFF? NO
[2018-05-18 05:30] LABS: BASOPHILS % 0.3 % (0.0-2.0); EOSINOPHILS # 0.3 10^3/ul (0.0-0.5); EOSINOPHILS % 4.2 % (0.0-7.0); HEMATOCRIT 25.8 % (42.0-52.0); LYMPHOCYTES # 1.5 10^3/ul (0.8-2.9); LYMPHOCYTES % 21.6 % (15.0-51.0); MEAN CORPUSCULAR HEMOGLOBIN 25.6 pg (29.0-33.0); MEAN CORPUSCULAR VOLUME 82.4 fl (82.0-101.0); MONOCYTE # 0.8 10^3/ul (0.3-0.9); MONOCYTES % 10.8 % (0.0-11.0); NEUTROPHIL # 4.3 10^3/ul (1.6-7.5); NEUTROPHILS % 62.5 % (39.0-77.0); PLATELET COUNT 288 10^3/UL (140-415); RED BLOOD COUNT 3.13 10^6/ul (4.70-6.10); RED CELL DISTRIBUTION WIDTH 16.3 % (11.5-14.5)
[2018-05-18 05:30] LABS: WHITE BLOOD COUNT 6.9 10^3/ul (4.8-10.8)
[2018-05-18] MEDS: INSULIN ASPART [NOVOLOG] 3 ML PEN SC ×3 (06:00→18:00)
[2018-05-18] MEDS: LANSOPRAZOLE 30 MG CAP GTB (06:09)
[2018-05-18 06:15] LABS: ANION GAP 5 (5-13); BLOOD UREA NITROGEN 22 mg/dl (7-20); CALCIUM 8.6 mg/dl (8.4-10.2); CARBON DIOXIDE 29 mmol/L (21-31); CHLORIDE 100 mmol/L (97-110); CREATININE 0.67 mg/dl (0.61-1.24); Estimated GFR > 60 mL/min (>60); GLUCOSE 146 mg/dl (70-220); POTASSIUM 3.8 mmol/L (3.5-5.1); SODIUM 134 mmol/L (135-144)
[2018-05-18] MEDS: ENOXAPARIN 40 MG/0.4 ML SYG SC (08:55)
[2018-05-18] MEDS: NPH, HUMAN INSULIN ISOPHANE 3ML VIAL SC ×2 (08:55→16:43)
[2018-05-18] MEDS: VALPROIC ACID LIQUID CUP 250 MG/5 ML CUP GTB ×2 (08:56→16:34)
[2018-05-18] MEDS: CEFEPIME 1GM/50 ML (PMX) 50 ML IVPB ×2 (08:57→21:54)
[2018-05-18] MEDS: FUROSEMIDE 20 MG INJ IV (09:03)
[2018-05-18] MEDS: BENAZEPRIL 10 MG TAB PO ×2 (09:06→21:55)
[2018-05-18] MEDS: ASPIRIN 81 MG TAB PEG (09:06)
[2018-05-18] MEDS: VANCOMYCIN HCL 1.25 GM in SOD CHLORIDE 0.9% 250 ML IVPB (11:59)
[2018-05-18] MEDS: ALTEPLASE (CATHFLO) 2 MG INJ CATHETER (21:57)
[2018-05-18] MEDS: ATORVASTATIN 80 MG TAB GTB (21:57)
[2018-05-19] MEDS: VANCOMYCIN HCL 1.25 GM in SOD CHLORIDE 0.9% 250 ML IVPB ×3 (00:42→23:32)
[2018-05-19] MEDS: VALPROIC ACID LIQUID CUP 250 MG/5 ML CUP GTB ×4 (00:54→23:38)
[2018-05-19] MEDS: NPH, HUMAN INSULIN ISOPHANE 3ML VIAL SC ×3 (01:14→15:31)
[2018-05-19 05:59] LABS: ADD MAN DIFF? NO
[2018-05-19] MEDS: INSULIN ASPART [NOVOLOG] 3 ML PEN SC ×4 (06:00→17:25)
[2018-05-19 06:02] LABS: WHITE BLOOD COUNT 4.8 10^3/ul (4.8-10.8)
[2018-05-19 06:02] LABS: BASOPHILS % 0.2 % (0.0-2.0); EOSINOPHILS # 0.3 10^3/ul (0.0-0.5); EOSINOPHILS % 5.2 % (0.0-7.0); HEMATOCRIT 26.5 % (42.0-52.0); HEMOGLOBIN 8.4 g/dl (14.0-18.0); LYMPHOCYTES # 1.3 10^3/ul (0.8-2.9); LYMPHOCYTES % 26.1 % (15.0-51.0); MEAN CORPUSCULAR HEMOGLOBIN 25.9 pg (29.0-33.0); MEAN CORPUSCULAR HGB CONC 31.7 g/dl (32.0-37.0); MEAN CORPUSCULAR VOLUME 81.8 fl (82.0-101.0); MEAN PLATELET VOLUME 10.3 fl (7.4-10.4); MONOCYTE # 0.5 10^3/ul (0.3-0.9); MONOCYTES % 10.9 % (0.0-11.0); NEUTROPHIL # 2.7 10^3/ul (1.6-7.5); NEUTROPHILS % 57.2 % (39.0-77.0); PLATELET COUNT 292 10^3/UL (140-415); RED BLOOD COUNT 3.24 10^6/ul (4.70-6.10)
[2018-05-19] MEDS: LANSOPRAZOLE 30 MG CAP GTB (06:11)
[2018-05-19 06:27] LABS: ANION GAP 7 (5-13); BLOOD UREA NITROGEN 16 mg/dl (7-20); CALCIUM 8.4 mg/dl (8.4-10.2); CARBON DIOXIDE 30 mmol/L (21-31); CHLORIDE 100 mmol/L (97-110); CREATININE 0.63 mg/dl (0.61-1.24); Estimated GFR > 60 mL/min (>60); GLUCOSE 120 mg/dl (70-220); POTASSIUM 3.7 mmol/L (3.5-5.1); SODIUM 137 mmol/L (135-144)
[2018-05-19] MEDS: CEFEPIME 1GM/50 ML (PMX) 50 ML IVPB ×2 (09:00→21:19)
[2018-05-19] MEDS: BENAZEPRIL 10 MG TAB PO (09:00)
[2018-05-19] MEDS: ASPIRIN 81 MG TAB PEG (09:00)
[2018-05-19] MEDS: FUROSEMIDE 20 MG INJ IV (09:01)
[2018-05-19] MEDS: ENOXAPARIN 40 MG/0.4 ML SYG SC (09:07)
[2018-05-19 10:40] LABS: VANCOMYCIN,TROUGH 14.9 ug/ml (10.0-20.0)
[2018-05-19] MEDS: ATORVASTATIN 80 MG TAB GTB (21:19)
[2018-05-20] MEDS: NPH, HUMAN INSULIN ISOPHANE 3ML VIAL SC ×4 (01:43→23:41)
[2018-05-20] MEDS: LANSOPRAZOLE 30 MG CAP GTB (05:41)
[2018-05-20] MEDS: INSULIN ASPART [NOVOLOG] 3 ML PEN SC ×5 (05:42→23:38)
[2018-05-20 05:44] LABS: ADD MAN DIFF? NO
[2018-05-20 05:56] LABS: WHITE BLOOD COUNT 4.8 10^3/ul (4.8-10.8)
[2018-05-20 05:56] LABS: BASOPHILS % 0.8 % (0.0-2.0); EOSINOPHILS # 0.3 10^3/ul (0.0-0.5); EOSINOPHILS % 5.6 % (0.0-7.0); HEMATOCRIT 26.2 % (42.0-52.0); HEMOGLOBIN 8.1 g/dl (14.0-18.0); LYMPHOCYTES # 1.4 10^3/ul (0.8-2.9); LYMPHOCYTES % 29.4 % (15.0-51.0); MEAN CORPUSCULAR HEMOGLOBIN 25.6 pg (29.0-33.0); MEAN CORPUSCULAR HGB CONC 30.9 g/dl (32.0-37.0); MEAN CORPUSCULAR VOLUME 82.9 fl (82.0-101.0); MEAN PLATELET VOLUME 10.2 fl (7.4-10.4); MONOCYTE # 0.6 10^3/ul (0.3-0.9); MONOCYTES % 11.8 % (0.0-11.0); NEUTROPHIL # 2.5 10^3/ul (1.6-7.5); PLATELET COUNT 309 10^3/UL (140-415); RED BLOOD COUNT 3.16 10^6/ul (4.70-6.10); RED CELL DISTRIBUTION WIDTH 16.2 % (11.5-14.5)
[2018-05-20 06:28] LABS: ANION GAP 4 (5-13); BLOOD UREA NITROGEN 18 mg/dl (7-20); CALCIUM 8.6 mg/dl (8.4-10.2); CARBON DIOXIDE 30 mmol/L (21-31); CHLORIDE 102 mmol/L (97-110); CREATININE 0.62 mg/dl (0.61-1.24); Estimated GFR > 60 mL/min (>60); GLUCOSE 109 mg/dl (70-220); POTASSIUM 3.8 mmol/L (3.5-5.1); SODIUM 136 mmol/L (135-144)
[2018-05-20] MEDS: VALPROIC ACID LIQUID CUP 250 MG/5 ML CUP GTB ×3 (09:15→23:32)
[2018-05-20] MEDS: CEFEPIME 1GM/50 ML (PMX) 50 ML IVPB ×2 (09:16→21:25)
[2018-05-20] MEDS: BENAZEPRIL 10 MG TAB PO (09:18)
[2018-05-20] MEDS: ASPIRIN 81 MG TAB PEG (09:18)
[2018-05-20] MEDS: FUROSEMIDE 20 MG INJ IV (09:19)
[2018-05-20] MEDS: ENOXAPARIN 40 MG/0.4 ML SYG SC (09:42)
[2018-05-20] MEDS: VANCOMYCIN HCL 1.25 GM in SOD CHLORIDE 0.9% 250 ML IVPB ×2 (10:30→23:32)
[2018-05-20] MEDS: ATORVASTATIN 80 MG TAB GTB (21:25)
[2018-05-21] MEDS: LANSOPRAZOLE 30 MG CAP GTB (05:10)
[2018-05-21] MEDS: INSULIN ASPART [NOVOLOG] 3 ML PEN SC ×3 (05:14→17:46)
[2018-05-21 05:39] LABS: ADD MAN DIFF? NO
[2018-05-21 05:47] LABS: BASOPHILS % 0.5 % (0.0-2.0); EOSINOPHILS # 0.3 10^3/ul (0.0-0.5); EOSINOPHILS % 5.9 % (0.0-7.0); HEMATOCRIT 27.4 % (42.0-52.0); HEMOGLOBIN 8.6 g/dl (14.0-18.0); LYMPHOCYTES # 1.5 10^3/ul (0.8-2.9); MEAN CORPUSCULAR HEMOGLOBIN 26.1 pg (29.0-33.0); MEAN CORPUSCULAR HGB CONC 31.4 g/dl (32.0-37.0); MEAN CORPUSCULAR VOLUME 83.3 fl (82.0-101.0); MEAN PLATELET VOLUME 10.5 fl (7.4-10.4); MONOCYTE # 0.5 10^3/ul (0.3-0.9); MONOCYTES % 8.5 % (0.0-11.0); NEUTROPHIL # 3.3 10^3/ul (1.6-7.5); NEUTROPHILS % 57.9 % (39.0-77.0); PLATELET COUNT 342 10^3/UL (140-415); RED BLOOD COUNT 3.29 10^6/ul (4.70-6.10); RED CELL DISTRIBUTION WIDTH 16.2 % (11.5-14.5)
[2018-05-21 05:47] LABS: WHITE BLOOD COUNT 5.6 10^3/ul (4.8-10.8)
[2018-05-21 06:05] LABS: ANION GAP 5 (5-13); BLOOD UREA NITROGEN 18 mg/dl (7-20); CALCIUM 8.6 mg/dl (8.4-10.2); CARBON DIOXIDE 30 mmol/L (21-31); CHLORIDE 101 mmol/L (97-110); CREATININE 0.56 mg/dl (0.61-1.24); Estimated GFR > 60 mL/min (>60); GLUCOSE 109 mg/dl (70-220); POTASSIUM 3.9 mmol/L (3.5-5.1); SODIUM 136 mmol/L (135-144)
[2018-05-21] MEDS: VALPROIC ACID LIQUID CUP 250 MG/5 ML CUP GTB ×2 (08:51→15:53)
[2018-05-21] MEDS: FUROSEMIDE 20 MG INJ IV (08:51)
[2018-05-21] MEDS: ASPIRIN 81 MG TAB PEG (08:53)
[2018-05-21] MEDS: CEFEPIME 1GM/50 ML (PMX) 50 ML IVPB ×2 (08:53→20:58)
[2018-05-21] MEDS: BENAZEPRIL 10 MG TAB PO (08:54)
[2018-05-21] MEDS: NPH, HUMAN INSULIN ISOPHANE 3ML VIAL SC ×2 (08:57→16:00)
[2018-05-21] MEDS: ENOXAPARIN 40 MG/0.4 ML SYG SC (08:57)
[2018-05-21] MEDS: VANCOMYCIN HCL 1.25 GM in SOD CHLORIDE 0.9% 250 ML IVPB ×2 (11:12→22:40)
[2018-05-21] MEDS: ATORVASTATIN 80 MG TAB GTB (20:58)
[2018-05-22] MEDS: VALPROIC ACID LIQUID CUP 250 MG/5 ML CUP GTB ×3 (00:32→15:23)
[2018-05-22] MEDS: NPH, HUMAN INSULIN ISOPHANE 3ML VIAL SC ×3 (01:12→15:30)
[2018-05-22] MEDS: ALTEPLASE (CATHFLO) 2 MG INJ CATHETER (03:46)
[2018-05-22 05:14] LABS: ADD MAN DIFF? NO
[2018-05-22 05:40] LABS: BASOPHILS % 0.5 % (0.0-2.0); EOSINOPHILS # 0.4 10^3/ul (0.0-0.5); EOSINOPHILS % 5.4 % (0.0-7.0); HEMATOCRIT 29.7 % (42.0-52.0); HEMOGLOBIN 9.4 g/dl (14.0-18.0); LYMPHOCYTES # 1.7 10^3/ul (0.8-2.9); LYMPHOCYTES % 22.9 % (15.0-51.0); MEAN CORPUSCULAR HEMOGLOBIN 25.9 pg (29.0-33.0); MEAN CORPUSCULAR HGB CONC 31.6 g/dl (32.0-37.0); MEAN CORPUSCULAR VOLUME 81.8 fl (82.0-101.0); MEAN PLATELET VOLUME 10.7 fl (7.4-10.4); MONOCYTE # 0.6 10^3/ul (0.3-0.9); MONOCYTES % 8.2 % (0.0-11.0); NEUTROPHIL # 4.6 10^3/ul (1.6-7.5); NEUTROPHILS % 62.5 % (39.0-77.0); PLATELET COUNT 377 10^3/UL (140-415); RED BLOOD COUNT 3.63 10^6/ul (4.70-6.10); RED CELL DISTRIBUTION WIDTH 16.6 % (11.5-14.5)
[2018-05-22 05:40] LABS: WHITE BLOOD COUNT 7.4 10^3/ul (4.8-10.8)
[2018-05-22] MEDS: INSULIN ASPART [NOVOLOG] 3 ML PEN SC ×4 (06:00→17:32)
[2018-05-22 06:04] LABS: ANION GAP 6 (5-13); BLOOD UREA NITROGEN 16 mg/dl (7-20); CALCIUM 8.9 mg/dl (8.4-10.2); CARBON DIOXIDE 29 mmol/L (21-31); CHLORIDE 102 mmol/L (97-110); CREATININE 0.61 mg/dl (0.61-1.24); Estimated GFR > 60 mL/min (>60); GLUCOSE 114 mg/dl (70-220); POTASSIUM 4.2 mmol/L (3.5-5.1); SODIUM 137 mmol/L (135-144)
[2018-05-22] MEDS: LANSOPRAZOLE 30 MG CAP GTB (06:06)
[2018-05-22] MEDS: FUROSEMIDE 20 MG INJ IV (08:05)
[2018-05-22] MEDS: CEFEPIME 1GM/50 ML (PMX) 50 ML IVPB ×2 (08:06→20:02)
[2018-05-22] MEDS: BENAZEPRIL 10 MG TAB PO (08:06)
[2018-05-22] MEDS: ASPIRIN 81 MG TAB PEG (08:06)
[2018-05-22] MEDS: ENOXAPARIN 40 MG/0.4 ML SYG SC (08:20)
[2018-05-22 11:35] LABS: VANCOMYCIN,TROUGH 14.8 ug/ml (10.0-20.0)
[2018-05-22] MEDS: VANCOMYCIN HCL 1.25 GM in SOD CHLORIDE 0.9% 250 ML IVPB ×2 (11:49→22:22)
[2018-05-22] MEDS: ATORVASTATIN 80 MG TAB GTB (20:05)
[2018-05-23] MEDS: VALPROIC ACID LIQUID CUP 250 MG/5 ML CUP GTB ×4 (00:02→23:43)
[2018-05-23] MEDS: NPH, HUMAN INSULIN ISOPHANE 3ML VIAL SC ×4 (00:06→23:54)
[2018-05-23] MEDS: INSULIN ASPART [NOVOLOG] 3 ML PEN SC ×5 (06:00→23:51)
[2018-05-23] MEDS: LANSOPRAZOLE 30 MG CAP GTB (06:10)
[2018-05-23 06:12] LABS: ADD MAN DIFF? NO
[2018-05-23 06:13] LABS: BASOPHILS % 0.4 % (0.0-2.0); EOSINOPHILS # 0.3 10^3/ul (0.0-0.5); EOSINOPHILS % 4.1 % (0.0-7.0); HEMATOCRIT 28.4 % (42.0-52.0); HEMOGLOBIN 9.1 g/dl (14.0-18.0); LYMPHOCYTES # 1.4 10^3/ul (0.8-2.9); LYMPHOCYTES % 18.2 % (15.0-51.0); MEAN CORPUSCULAR HEMOGLOBIN 26.3 pg (29.0-33.0); MEAN CORPUSCULAR VOLUME 82.1 fl (82.0-101.0); MEAN PLATELET VOLUME 11.1 fl (7.4-10.4); MONOCYTE # 0.6 10^3/ul (0.3-0.9); MONOCYTES % 7.6 % (0.0-11.0); NEUTROPHIL # 5.1 10^3/ul (1.6-7.5); NEUTROPHILS % 69.3 % (39.0-77.0); PLATELET COUNT 396 10^3/UL (140-415); RED BLOOD COUNT 3.46 10^6/ul (4.70-6.10); RED CELL DISTRIBUTION WIDTH 16.9 % (11.5-14.5)
[2018-05-23 06:13] LABS: WHITE BLOOD COUNT 7.4 10^3/ul (4.8-10.8)
[2018-05-23 06:58] LABS: ANION GAP 5 (5-13); BLOOD UREA NITROGEN 19 mg/dl (7-20); CALCIUM 8.7 mg/dl (8.4-10.2); CARBON DIOXIDE 30 mmol/L (21-31); CHLORIDE 101 mmol/L (97-110); CREATININE 0.66 mg/dl (0.61-1.24); Estimated GFR > 60 mL/min (>60); GLUCOSE 129 mg/dl (70-220); POTASSIUM 3.9 mmol/L (3.5-5.1); SODIUM 136 mmol/L (135-144)
[2018-05-23] MEDS: CEFEPIME 1GM/50 ML (PMX) 50 ML IVPB ×2 (08:27→22:09)
[2018-05-23] MEDS: ASPIRIN 81 MG TAB PEG (08:28)
[2018-05-23] MEDS: BENAZEPRIL 10 MG TAB PO (08:30)
[2018-05-23] MEDS: FUROSEMIDE 20 MG INJ IV (08:30)
[2018-05-23] MEDS: ENOXAPARIN 40 MG/0.4 ML SYG SC (09:40)
[2018-05-23] MEDS: VANCOMYCIN HCL 1.25 GM in SOD CHLORIDE 0.9% 250 ML IVPB ×2 (12:08→23:43)
[2018-05-23] MEDS: ATORVASTATIN 80 MG TAB GTB (22:09)
[2018-05-24 05:15] LABS: ADD MAN DIFF? NO
[2018-05-24 05:24] LABS: BASOPHILS % 0.6 % (0.0-2.0); EOSINOPHILS # 0.3 10^3/ul (0.0-0.5); HEMATOCRIT 27.6 % (42.0-52.0); HEMOGLOBIN 8.7 g/dl (14.0-18.0); LYMPHOCYTES # 1.5 10^3/ul (0.8-2.9); LYMPHOCYTES % 23.8 % (15.0-51.0); MEAN CORPUSCULAR HEMOGLOBIN 25.7 pg (29.0-33.0); MEAN CORPUSCULAR HGB CONC 31.5 g/dl (32.0-37.0); MEAN CORPUSCULAR VOLUME 81.7 fl (82.0-101.0); MEAN PLATELET VOLUME 10.2 fl (7.4-10.4); MONOCYTE # 0.6 10^3/ul (0.3-0.9); MONOCYTES % 9.9 % (0.0-11.0); NEUTROPHIL # 3.9 10^3/ul (1.6-7.5); NEUTROPHILS % 60.2 % (39.0-77.0); PLATELET COUNT 354 10^3/UL (140-415); RED BLOOD COUNT 3.38 10^6/ul (4.70-6.10)
[2018-05-24 05:24] LABS: WHITE BLOOD COUNT 6.4 10^3/ul (4.8-10.8)
[2018-05-24] MEDS: LANSOPRAZOLE 30 MG CAP GTB (05:53)
[2018-05-24] MEDS: INSULIN ASPART [NOVOLOG] 3 ML PEN SC ×3 (05:53→17:18)
[2018-05-24 06:17] LABS: ANION GAP 7 (5-13); BLOOD UREA NITROGEN 18 mg/dl (7-20); CALCIUM 8.7 mg/dl (8.4-10.2); CARBON DIOXIDE 29 mmol/L (21-31); CHLORIDE 102 mmol/L (97-110); CREATININE 0.63 mg/dl (0.61-1.24); Estimated GFR > 60 mL/min (>60); GLUCOSE 110 mg/dl (70-220); POTASSIUM 3.9 mmol/L (3.5-5.1); SODIUM 138 mmol/L (135-144)
[2018-05-24] MEDS: ASPIRIN 81 MG TAB PEG (08:46)
[2018-05-24] MEDS: VALPROIC ACID LIQUID CUP 250 MG/5 ML CUP GTB ×2 (08:46→17:15)
[2018-05-24] MEDS: BENAZEPRIL 10 MG TAB PO (08:47)
[2018-05-24] MEDS: ENOXAPARIN 40 MG/0.4 ML SYG SC (08:57)
[2018-05-24] MEDS: NPH, HUMAN INSULIN ISOPHANE 3ML VIAL SC ×2 (08:59→16:00)
[2018-05-24] MEDS: FUROSEMIDE 20 MG INJ IV (09:07)
== END 2018-05-24 20:33 | DRG 870 ==
LOC: 6WM 05-18 18:18 → E/R 14:10 → 6WM 05-15 21:15 → ICU 05-16 21:28
PROVIDERS: Internal Medicine
PROC: 5A1955Z Respiratory Ventilation, Greater than 96 Consecutive Hours (ICD-10-PCS; principal; 2018-05-11)
PROC: 06HY33Z Insertion of Infusion Device into Lower Vein, Percutaneous Approach (ICD-10-PCS; 2018-05-11)
PROC: 02H633Z Insertion of Infusion Device into Right Atrium, Percutaneous Approach (ICD-10-PCS; 2018-05-13)
PROC: 30233N1 Transfusion of Nonautologous Red Blood Cells into Peripheral Vein, Percutaneous Approach (ICD-10-PCS; 2018-05-13)
PROC: 0BJ08ZZ Inspection of Tracheobronchial Tree, Via Natural or Artificial Opening Endoscopic (ICD-10-PCS; 2018-05-17)
DX: A41.9 Sepsis, unspecified organism (principal); R65.21 Severe sepsis with septic shock; J18.9 Pneumonia, unspecified organism; J96.21 Acute and chronic respiratory failure with hypoxia; N39.0 Urinary tract infection, site not specified; J98.11 Atelectasis; G93.49 Other encephalopathy; I42.9 Cardiomyopathy, unspecified; Z99.11 Dependence on respirator [ventilator] status; B96.89 Other specified bacterial agents as the cause of diseases classified elsewhere; D64.9 Anemia, unspecified; E66.01 Morbid (severe) obesity due to excess calories; E78.5 Hyperlipidemia, unspecified; E11.649 Type 2 diabetes mellitus with hypoglycemia without coma; G40.909 Epilepsy, unspecified, not intractable, without status epilepticus; I25.10 Atherosclerotic heart disease of native coronary artery without angina pectoris; I11.0 Hypertensive heart disease with heart failure; I50.9 Heart failure, unspecified; R13.10 Dysphagia, unspecified; Z93.0 Tracheostomy status; Z93.1 Gastrostomy status; Z95.5 Presence of coronary angioplasty implant and graft; Z68.38 Body mass index [BMI] 38.0-38.9, adult; Z79.4 Long term (current) use of insulin; Z79.82 Long term (current) use of aspirin
CPT/HCPCS: 36415; 36430; 36569; 36600; 71045; 76937; 80048; 80053; 80202; 81001; 82550; 82553; 82803; 82962; 83036; 83605; 83735; 84100; 84443; 84484; 85014; 85018; 85025; 85610; 85730; 86850; 86900; 86901; 86920; 87040; 87081; 87086; 93005; 93306; 94002; 94003; 96374; 96375; 99291-25

== ENCOUNTER 2018-09-22 21:01 | Inpatient (IN) | payer MEDICARE, OTHER ==
[2018-09-22] MEDS: ONDANSETRON 4 MG INJ IV (21:19)
[2018-09-22] MEDS: morphine 4 MG/ML VIAL IV (21:19)
[2018-09-22 22:12] LABS: ADD MAN DIFF? NO
[2018-09-22 22:17] LABS: WHITE BLOOD COUNT 11.2 10^3/ul (4.8-10.8)
[2018-09-22 22:17] LABS: BASOPHILS % 0.3 % (0.0-2.0); EOSINOPHILS # 0.1 10^3/ul (0.0-0.5); EOSINOPHILS % 0.9 % (0.0-7.0); HEMATOCRIT 39.8 % (42.0-52.0); HEMOGLOBIN 12.3 g/dl (14.0-18.0); LYMPHOCYTES # 1.2 10^3/ul (0.8-2.9); LYMPHOCYTES % 10.8 % (15.0-51.0); MEAN CORPUSCULAR HEMOGLOBIN 27.6 pg (29.0-33.0); MEAN CORPUSCULAR HGB CONC 30.9 g/dl (32.0-37.0); MEAN CORPUSCULAR VOLUME 89.4 fl (82.0-101.0); MEAN PLATELET VOLUME 11.9 fl (7.4-10.4); MONOCYTE # 0.9 10^3/ul (0.3-0.9); MONOCYTES % 7.8 % (0.0-11.0); NEUTROPHILS % 79.8 % (39.0-77.0); PLATELET COUNT 310 10^3/UL (140-415); RED BLOOD COUNT 4.45 10^6/ul (4.70-6.10); RED CELL DISTRIBUTION WIDTH 16.6 % (11.5-14.5)
[2018-09-22 22:38] LABS: INR 1.03; PROTIME 13.6 Sec (11.9-14.9); PT RATIO 1.1
[2018-09-22 22:39] LABS: PARTIAL THROMBOPLASTIN TIME 31.5 Sec (23.0-35.0)
[2018-09-22 22:40] LABS: ALANINE AMINOTRANSFERASE 9 IU/L (13-69); ALBUMIN 3.7 g/dl (3.3-4.9); ALBUMIN/GLOBULIN RATIO 0.78; ALKALINE PHOSPHATASE 147 IU/L (42-121); ANION GAP 6 (5-13); ASPARTATE AMINO TRANSFERASE 21 IU/L (15-46); BILIRUBIN,INDIRECT 0.3 mg/dl (0-1.1); BILIRUBIN,TOTAL 0.3 mg/dl (0.2-1.3); BLOOD UREA NITROGEN 26 mg/dl (7-20); CALCIUM 9.2 mg/dl (8.4-10.2); CARBON DIOXIDE 36 mmol/L (21-31); CHLORIDE 98 mmol/L (97-110); CREATININE 0.72 mg/dl (0.61-1.24); Estimated GFR > 60 mL/min (>60); GLUCOSE 221 mg/dl (70-220); SODIUM 140 mmol/L (135-144); TOTAL PROTEIN 8.4 g/dl (6.1-8.1)
[2018-09-22 22:51] LABS: TROPONIN-I < 0.012 ng/ml (0.000-0.120)
[2018-09-22] MEDS ORDERED: ONDANSETRON 4 MG INJ IV (23:00)
[2018-09-22 23:22] LABS: HEMOGLOBIN A1C 5.5 % (0-5.9)
[2018-09-23 00:07] LABS: LACTIC ACID 1.9 mmol/L (0.5-2.0)
[2018-09-23 01:20] LABS: LACTIC ACID 1.9 mmol/L (0.5-2.0)
[2018-09-23] MEDS ORDERED: GLUCOSE GEL 15 GRAM TUBE PO ×2 (03:00)
[2018-09-23] MEDS ORDERED: GLUCAGON 1 MG INJ IM (03:00)
[2018-09-23] MEDS ORDERED: DEXTROSE 50% 50 ML SYRINGE IV ×2 (03:00)
[2018-09-23] MEDS: INSULIN ASPART [NOVOLOG] 3 ML PEN SC ×5 (04:55→21:42)
[2018-09-23 05:22] LABS: ADD UMIC YES; UR ASCORBIC ACID 40 mg/dL (NEGATIVE); UR BILIRUBIN (Dip) NEGATIVE (NEGATIVE); UR BLOOD (Dip) NEGATIVE (NEGATIVE); UR CLARITY CLEAR (CLEAR); UR COLOR YELLOW (YELLOW); UR GLUCOSE (Dip) 3+ mg/dL (NEGATIVE); UR KETONES (Dip) TRACE mg/dL (NEGATIVE); UR LEUKOCYTE ESTERASE (Dip) NEGATIVE Leu/ul (NEGATIVE); UR NITRITE (Dip) NEGATIVE (NEGATIVE); UR RBC 5 /HPF (0-5); UR SPECIFIC GRAVITY (Dip) 1.024 (1.003-1.030); UR TOTAL PROTEIN (Dip) 2+ mg/dl (NEGATIVE); UR UROBILINOGEN (Dip) 1+ mg/dL (NEGATIVE); UR WBC 1 /HPF (0-5)
[2018-09-23] MEDS: morphine 2 MG INJ IV (05:26)
[2018-09-23 05:27] LABS: ADD MAN DIFF? NO
[2018-09-23 05:41] LABS: WHITE BLOOD COUNT 11.2 10^3/ul (4.8-10.8)
[2018-09-23 05:41] LABS: BASOPHILS % 0.4 % (0.0-2.0); EOSINOPHILS # 0.3 10^3/ul (0.0-0.5); EOSINOPHILS % 2.7 % (0.0-7.0); HEMOGLOBIN 12.8 g/dl (14.0-18.0); LYMPHOCYTES # 1.3 10^3/ul (0.8-2.9); LYMPHOCYTES % 11.8 % (15.0-51.0); MEAN CORPUSCULAR HGB CONC 31.2 g/dl (32.0-37.0); MEAN CORPUSCULAR VOLUME 89.7 fl (82.0-101.0); MEAN PLATELET VOLUME 11.8 fl (7.4-10.4); MONOCYTES % 9.3 % (0.0-11.0); NEUTROPHIL # 8.4 10^3/ul (1.6-7.5); NEUTROPHILS % 75.3 % (39.0-77.0); PLATELET COUNT 319 10^3/UL (140-415); RED BLOOD COUNT 4.57 10^6/ul (4.70-6.10); RED CELL DISTRIBUTION WIDTH 16.8 % (11.5-14.5)
[2018-09-23 06:07] LABS: ANION GAP 6 (5-13); BLOOD UREA NITROGEN 29 mg/dl (7-20); CALCIUM 9.3 mg/dl (8.4-10.2); CARBON DIOXIDE 35 mmol/L (21-31); CHLORIDE 100 mmol/L (97-110); Estimated GFR > 60 mL/min (>60); GLUCOSE 193 mg/dl (70-220); POTASSIUM 4.7 mmol/L (3.5-5.1); SODIUM 141 mmol/L (135-144)
[2018-09-23] MEDS: FAMOTIDINE 20 MG INJ IV (08:07)
[2018-09-23] MEDS ORDERED: NON-FORMULARY/PATIENT OWN MED (Na Phos,M-B/Na Phos,Di-Ba (Fleet Enema Extra) 230 ML) RC (09:30)
[2018-09-23] MEDS ORDERED: BISACODYL 10 MG SUPP PR (09:30)
[2018-09-23] MEDS: NPH, HUMAN INSULIN ISOPHANE 3ML VIAL SC ×4 (09:30→21:41)
[2018-09-23] MEDS: SENNA TAB GTB ×2 (09:30→20:22)
[2018-09-23] MEDS ORDERED: NA PHOSPHATE/BIPHOS 133 ML ENEMA PR (10:00)
[2018-09-23] MEDS: SUCRALFATE (100 MG/ML) 10ML CUP GTB ×3 (14:13→20:20)
[2018-09-23] MEDS: VALPROIC ACID LIQUID CUP 250 MG/5 ML CUP GTB ×3 (14:13→21:39)
[2018-09-23] MEDS: MAGNESIUM HYDROXIDE 30ML CUP GTB (14:13)
[2018-09-23] MEDS: FUROSEMIDE 20 MG TAB GTB (14:15)
[2018-09-23] MEDS: LISINOPRIL 5 MG TAB GTB (14:15)
[2018-09-23] MEDS: ACETYLCYSTEINE 20% 4 ML VIAL NEB ×2 (15:00→20:47)
[2018-09-23] MEDS: LANSOPRAZOLE 30 MG CAP GTB (17:19)
[2018-09-23 18:25] LABS: CREATINE KINASE 26 IU/L (23-200)
[2018-09-23 18:38] LABS: CK INDEX 2.6; CK-MB 0.67 ng/ml (0.0-2.4); TROPONIN-I < 0.012 ng/ml (0.000-0.120)
[2018-09-23] MEDS: ATORVASTATIN 80 MG TAB GTB (20:21)
[2018-09-24 01:11] LABS: CREATINE KINASE 29 IU/L (23-200)
[2018-09-24 01:22] LABS: CK INDEX 2.8; TROPONIN-I < 0.012 ng/ml (0.000-0.120)
[2018-09-24] MEDS: INSULIN ASPART [NOVOLOG] 3 ML PEN SC ×6 (03:10→21:36)
[2018-09-24] MEDS: VALPROIC ACID LIQUID CUP 250 MG/5 ML CUP GTB ×3 (05:51→21:27)
[2018-09-24] MEDS: NPH, HUMAN INSULIN ISOPHANE 3ML VIAL SC ×3 (05:53→21:37)
[2018-09-24] MEDS: LANSOPRAZOLE 30 MG CAP GTB ×2 (06:00→17:21)
[2018-09-24 07:51] LABS: ADD MAN DIFF? NO
[2018-09-24 07:57] LABS: WHITE BLOOD COUNT 11.5 10^3/ul (4.8-10.8)
[2018-09-24 07:57] LABS: BASOPHIL # 0.1 10^3/ul (0.0-0.1); BASOPHILS % 0.5 % (0.0-2.0); EOSINOPHILS # 0.4 10^3/ul (0.0-0.5); EOSINOPHILS % 3.4 % (0.0-7.0); HEMATOCRIT 42.3 % (42.0-52.0); HEMOGLOBIN 13.2 g/dl (14.0-18.0); LYMPHOCYTES # 1.4 10^3/ul (0.8-2.9); LYMPHOCYTES % 12.4 % (15.0-51.0); MEAN CORPUSCULAR HEMOGLOBIN 27.8 pg (29.0-33.0); MEAN CORPUSCULAR HGB CONC 31.2 g/dl (32.0-37.0); MEAN CORPUSCULAR VOLUME 89.2 fl (82.0-101.0); MONOCYTE # 1.2 10^3/ul (0.3-0.9); MONOCYTES % 10.3 % (0.0-11.0); NEUTROPHIL # 8.4 10^3/ul (1.6-7.5); NEUTROPHILS % 72.9 % (39.0-77.0); PLATELET COUNT 307 10^3/UL (140-415); RED BLOOD COUNT 4.74 10^6/ul (4.70-6.10); RED CELL DISTRIBUTION WIDTH 16.5 % (11.5-14.5)
[2018-09-24 08:14] LABS: ANION GAP 8 (5-13); BLOOD UREA NITROGEN 30 mg/dl (7-20); CALCIUM 9.1 mg/dl (8.4-10.2); CARBON DIOXIDE 32 mmol/L (21-31); CHLORIDE 101 mmol/L (97-110); CREATINE KINASE 61 IU/L (23-200); CREATININE 0.66 mg/dl (0.61-1.24); Estimated GFR > 60 mL/min (>60); GLUCOSE 184 mg/dl (70-220); POTASSIUM 4.2 mmol/L (3.5-5.1); SODIUM 141 mmol/L (135-144)
[2018-09-24 08:15] LABS: CHOLESTEROL 90 mg/dl (100-200)
[2018-09-24 08:15] LABS: HDL CHOLESTEROL 30 mg/dl (28-71); LDL CHOLESTEROL,CALCULATED 38 mg/dl; TRIGLYCERIDES 108 mg/dl (0-149)
[2018-09-24 08:24] LABS: CK INDEX 1.8; CK-MB 1.09 ng/ml (0.0-2.4); TROPONIN-I < 0.012 ng/ml (0.000-0.120)
[2018-09-24] MEDS: ACETYLCYSTEINE 20% 4 ML VIAL NEB ×2 (09:00→20:45)
[2018-09-24] MEDS: SENNA TAB GTB ×2 (09:41→21:27)
[2018-09-24] MEDS: LISINOPRIL 5 MG TAB GTB (09:42)
[2018-09-24] MEDS: FUROSEMIDE 20 MG TAB GTB (09:42)
[2018-09-24] MEDS: MAGNESIUM HYDROXIDE 30ML CUP GTB (09:42)
[2018-09-24] MEDS: SUCRALFATE (100 MG/ML) 10ML CUP GTB ×4 (09:43→21:27)
[2018-09-24] MEDS: ACETAMINOPHEN 325 MG TAB GTB (15:58)
[2018-09-24] MEDS: ALBUTEROL/IPRATROPIUM (NEB) 3 ML AMP HHN (20:45)
[2018-09-24] MEDS: ATORVASTATIN 80 MG TAB GTB (21:27)
[2018-09-25] MEDS: ACETAMINOPHEN 325 MG TAB GTB (00:39)
[2018-09-25] MEDS: INSULIN ASPART [NOVOLOG] 3 ML PEN SC ×6 (00:44→20:57)
[2018-09-25] MEDS: VALPROIC ACID LIQUID CUP 250 MG/5 ML CUP GTB ×3 (05:35→21:12)
[2018-09-25] MEDS: NPH, HUMAN INSULIN ISOPHANE 3ML VIAL SC ×3 (05:43→21:11)
[2018-09-25] MEDS: LANSOPRAZOLE 30 MG CAP GTB ×2 (05:43→17:27)
[2018-09-25] MEDS: ACETYLCYSTEINE 20% 4 ML VIAL NEB ×2 (08:22→20:09)
[2018-09-25] MEDS: ALBUTEROL/IPRATROPIUM (NEB) 3 ML AMP HHN ×2 (08:23→20:09)
[2018-09-25] MEDS: MAGNESIUM HYDROXIDE 30ML CUP GTB (09:14)
[2018-09-25] MEDS: SUCRALFATE (100 MG/ML) 10ML CUP GTB ×4 (09:14→20:53)
[2018-09-25] MEDS: SENNA TAB GTB ×2 (09:14→20:54)
[2018-09-25] MEDS: FUROSEMIDE 20 MG TAB GTB (09:15)
[2018-09-25] MEDS: LISINOPRIL 5 MG TAB GTB (09:16)
[2018-09-25 10:59] LABS: AADO2 Arterial 91.6 mmHg (7.0-24.0); Allen Test ACCEPTAB; Arterial Base Excess 7.6 mmol/L (-3.0-3); Arterial COHb 0.1 % (0.0-3.0); Arterial Fraction of Oxyhgb 91.5 % (93.0-99.0); Arterial HCO3 31.3 mmol/L (22.0-26.0); Arterial MetHb 0.4 % (0.0-1.5); Arterial pCO2 40.5 mmhg (35-45); MODE TRACH COLLAR; Site Right Radial
[2018-09-25] MEDS: ACETAMINOPHEN 650MG/20.3ML CUP PO (12:45)
[2018-09-25] MEDS: CEFEPIME 1GM/50 ML (PMX) 50 ML IVPB ×2 (13:38→20:54)
[2018-09-25] MEDS: DIGOXIN 500 MCG INJ IV (13:38)
[2018-09-25] MEDS: ATORVASTATIN 80 MG TAB GTB (20:54)
[2018-09-26] MEDS: INSULIN ASPART [NOVOLOG] 3 ML PEN SC ×6 (02:04→21:22)
[2018-09-26] MEDS: LANSOPRAZOLE 30 MG CAP GTB ×2 (05:09→17:33)
[2018-09-26 05:12] LABS: ADD MAN DIFF? NO
[2018-09-26] MEDS: VALPROIC ACID LIQUID CUP 250 MG/5 ML CUP GTB ×3 (05:12→21:36)
[2018-09-26] MEDS: NPH, HUMAN INSULIN ISOPHANE 3ML VIAL SC ×3 (05:15→21:20)
[2018-09-26 05:22] LABS: BASOPHIL # 0.1 10^3/ul (0.0-0.1); BASOPHILS % 0.4 % (0.0-2.0); EOSINOPHILS % 0.2 % (0.0-7.0); HEMATOCRIT 41.2 % (42.0-52.0); LYMPHOCYTES # 1.6 10^3/ul (0.8-2.9); LYMPHOCYTES % 9.4 % (15.0-51.0); MEAN CORPUSCULAR HEMOGLOBIN 27.9 pg (29.0-33.0); MEAN CORPUSCULAR HGB CONC 31.6 g/dl (32.0-37.0); MEAN CORPUSCULAR VOLUME 88.4 fl (82.0-101.0); MEAN PLATELET VOLUME 12.4 fl (7.4-10.4); MONOCYTE # 1.2 10^3/ul (0.3-0.9); MONOCYTES % 7.4 % (0.0-11.0); NEUTROPHIL # 13.7 10^3/ul (1.6-7.5); NEUTROPHILS % 82.2 % (39.0-77.0); PLATELET COUNT 252 10^3/UL (140-415); RED BLOOD COUNT 4.66 10^6/ul (4.70-6.10); RED CELL DISTRIBUTION WIDTH 16.6 % (11.5-14.5)
[2018-09-26 05:22] LABS: WHITE BLOOD COUNT 16.7 10^3/ul (4.8-10.8)
[2018-09-26] MEDS: ACETAMINOPHEN 650MG/20.3ML CUP PO ×2 (05:30→12:52)
[2018-09-26 05:50] LABS: ANION GAP 6 (5-13); BLOOD UREA NITROGEN 41 mg/dl (7-20); CALCIUM 8.6 mg/dl (8.4-10.2); CARBON DIOXIDE 35 mmol/L (21-31); CHLORIDE 98 mmol/L (97-110); CREATININE 0.97 mg/dl (0.61-1.24); Estimated GFR > 60 mL/min (>60); GLUCOSE 184 mg/dl (70-220); POTASSIUM 3.8 mmol/L (3.5-5.1); SODIUM 139 mmol/L (135-144)
[2018-09-26] MEDS: ALBUTEROL/IPRATROPIUM (NEB) 3 ML AMP HHN ×2 (08:20→19:51)
[2018-09-26] MEDS: ACETYLCYSTEINE 20% 4 ML VIAL NEB ×2 (08:20→19:51)
[2018-09-26] MEDS: LISINOPRIL 5 MG TAB GTB (08:30)
[2018-09-26] MEDS: CEFEPIME 1GM/50 ML (PMX) 50 ML IVPB ×2 (09:24→12:52)
[2018-09-26] MEDS: SENNA TAB GTB ×2 (09:24→21:36)
[2018-09-26] MEDS: FUROSEMIDE 20 MG TAB GTB (09:25)
[2018-09-26] MEDS: SUCRALFATE (100 MG/ML) 10ML CUP GTB ×4 (09:25→21:38)
[2018-09-26] MEDS: MAGNESIUM HYDROXIDE 30ML CUP GTB (09:30)
[2018-09-26] MEDS ORDERED: VANCOMYCIN IV PER PHARMACY XX (10:30)
[2018-09-26 11:16] LABS: VALPROATE 56 ug/ml (50-100)
[2018-09-26 16:29] LABS: LACTIC ACID 1.3 mmol/L (0.5-2.0)
[2018-09-26] MEDS: VANCOMYCIN HCL 2 GM in SOD CHLORIDE 0.9% 500 ML IVPB (16:44)
[2018-09-26 17:21] LABS: PROCALCITONIN 0.19 ng/mL (0.00-0.10)
[2018-09-26] MEDS: PIPER-TAZO 3.375 GM IV (PMX) 100 ML IVPB (21:35)
[2018-09-26] MEDS: ATORVASTATIN 80 MG TAB GTB (21:36)
[2018-09-27] MEDS: INSULIN ASPART [NOVOLOG] 3 ML PEN SC ×6 (01:00→21:54)
[2018-09-27] MEDS: NPH, HUMAN INSULIN ISOPHANE 3ML VIAL SC ×3 (05:18→21:58)
[2018-09-27] MEDS: LANSOPRAZOLE 30 MG CAP GTB ×2 (05:18→18:53)
[2018-09-27] MEDS: VALPROIC ACID LIQUID CUP 250 MG/5 ML CUP GTB ×3 (05:18→21:49)
[2018-09-27] MEDS: VANCOMYCIN HCL 1.25 GM in SOD CHLORIDE 0.9% 250 ML IVPB (05:24)
[2018-09-27] MEDS: PIPER-TAZO 3.375 GM IV (PMX) 100 ML IVPB ×3 (05:24→21:50)
[2018-09-27 05:37] LABS: ADD MAN DIFF? NO
[2018-09-27] MEDS: ACETAMINOPHEN 650MG/20.3ML CUP PO ×3 (05:49→17:37)
[2018-09-27 05:52] LABS: BASOPHIL # 0.1 10^3/ul (0.0-0.1); BASOPHILS % 0.4 % (0.0-2.0); EOSINOPHILS # 0.3 10^3/ul (0.0-0.5); EOSINOPHILS % 1.7 % (0.0-7.0); HEMATOCRIT 38.9 % (42.0-52.0); HEMOGLOBIN 12.4 g/dl (14.0-18.0); LYMPHOCYTES # 1.5 10^3/ul (0.8-2.9); LYMPHOCYTES % 9.9 % (15.0-51.0); MEAN CORPUSCULAR HEMOGLOBIN 28.1 pg (29.0-33.0); MEAN CORPUSCULAR HGB CONC 31.9 g/dl (32.0-37.0); MEAN PLATELET VOLUME 12.3 fl (7.4-10.4); MONOCYTE # 1.5 10^3/ul (0.3-0.9); MONOCYTES % 9.4 % (0.0-11.0); NEUTROPHIL # 12.1 10^3/ul (1.6-7.5); NEUTROPHILS % 78.3 % (39.0-77.0); PLATELET COUNT 213 10^3/UL (140-415); RED BLOOD COUNT 4.42 10^6/ul (4.70-6.10); RED CELL DISTRIBUTION WIDTH 16.2 % (11.5-14.5)
[2018-09-27 05:52] LABS: WHITE BLOOD COUNT 15.5 10^3/ul (4.8-10.8)
[2018-09-27 06:45] LABS: ANION GAP 5 (5-13); BLOOD UREA NITROGEN 38 mg/dl (7-20); CALCIUM 8.3 mg/dl (8.4-10.2); CARBON DIOXIDE 35 mmol/L (21-31); CHLORIDE 98 mmol/L (97-110); CREATININE 0.83 mg/dl (0.61-1.24); Estimated GFR > 60 mL/min (>60); GLUCOSE 175 mg/dl (70-220); MAGNESIUM 2.7 mg/dl (1.7-2.5); POTASSIUM 3.7 mmol/L (3.5-5.1); SODIUM 138 mmol/L (135-144)
[2018-09-27] MEDS: MAGNESIUM HYDROXIDE 30ML CUP GTB (09:30)
[2018-09-27] MEDS: SENNA TAB GTB ×2 (10:46→21:00)
[2018-09-27] MEDS: SUCRALFATE (100 MG/ML) 10ML CUP GTB ×4 (10:46→21:49)
[2018-09-27] MEDS: LISINOPRIL 5 MG TAB GTB (10:47)
[2018-09-27] MEDS: FUROSEMIDE 20 MG TAB GTB (10:49)
[2018-09-27] MEDS: ALBUTEROL/IPRATROPIUM (NEB) 3 ML AMP HHN (12:01)
[2018-09-27] MEDS: ACETYLCYSTEINE 20% 4 ML VIAL NEB ×2 (12:01→20:33)
[2018-09-27] MEDS: ATORVASTATIN 80 MG TAB GTB (21:49)
[2018-09-28] MEDS: INSULIN ASPART [NOVOLOG] 3 ML PEN SC ×6 (01:00→21:00)
[2018-09-28] MEDS: VALPROIC ACID LIQUID CUP 250 MG/5 ML CUP GTB ×3 (05:19→21:36)
[2018-09-28] MEDS: PIPER-TAZO 3.375 GM IV (PMX) 100 ML IVPB ×3 (05:19→21:12)
[2018-09-28] MEDS: NPH, HUMAN INSULIN ISOPHANE 3ML VIAL SC ×3 (05:28→21:21)
[2018-09-28] MEDS: ACETAMINOPHEN 325 MG TAB GTB (05:29)
[2018-09-28] MEDS: LANSOPRAZOLE 30 MG CAP GTB ×2 (05:29→17:57)
[2018-09-28 05:30] LABS: ADD MAN DIFF? NO
[2018-09-28 05:36] LABS: BASOPHIL # 0.1 10^3/ul (0.0-0.1); BASOPHILS % 0.5 % (0.0-2.0); EOSINOPHILS # 0.3 10^3/ul (0.0-0.5); EOSINOPHILS % 2.8 % (0.0-7.0); HEMATOCRIT 38.6 % (42.0-52.0); HEMOGLOBIN 12.2 g/dl (14.0-18.0); LYMPHOCYTES # 1.3 10^3/ul (0.8-2.9); LYMPHOCYTES % 11.4 % (15.0-51.0); MEAN CORPUSCULAR HEMOGLOBIN 27.7 pg (29.0-33.0); MEAN CORPUSCULAR HGB CONC 31.6 g/dl (32.0-37.0); MEAN CORPUSCULAR VOLUME 87.7 fl (82.0-101.0); MEAN PLATELET VOLUME 12.5 fl (7.4-10.4); MONOCYTES % 9.4 % (0.0-11.0); NEUTROPHIL # 8.4 10^3/ul (1.6-7.5); NEUTROPHILS % 75.5 % (39.0-77.0); PLATELET COUNT 171 10^3/UL (140-415); POSITIVE DIFF @See below; RED CELL DISTRIBUTION WIDTH 16.4 % (11.5-14.5)
[2018-09-28 05:36] LABS: WHITE BLOOD COUNT 11.1 10^3/ul (4.8-10.8)
[2018-09-28] MEDS: MAGNESIUM HYDROXIDE 30ML CUP GTB (08:53)
[2018-09-28] MEDS: SUCRALFATE (100 MG/ML) 10ML CUP GTB ×4 (08:53→21:02)
[2018-09-28] MEDS: FUROSEMIDE 20 MG TAB GTB (08:54)
[2018-09-28] MEDS: LISINOPRIL 5 MG TAB GTB (08:54)
[2018-09-28] MEDS: SENNA TAB GTB ×2 (08:55→21:02)
[2018-09-28] MEDS: ACETYLCYSTEINE 20% 4 ML VIAL NEB ×2 (09:00→19:52)
[2018-09-28] MEDS: ACETAMINOPHEN 650MG/20.3ML CUP PO ×2 (12:38→21:36)
[2018-09-28] MEDS ORDERED: VANCOMYCIN IV PER PHARMACY XX (13:00)
[2018-09-28 14:39] LABS: ADD UMIC YES; UR ASCORBIC ACID 40 mg/dL (NEGATIVE); UR BILIRUBIN (Dip) NEGATIVE (NEGATIVE); UR BLOOD (Dip) 1+ mg/dL (NEGATIVE); UR CLARITY SLIGHTLY CLOUDY (CLEAR); UR COLOR YELLOW (YELLOW); UR GLUCOSE (Dip) NEGATIVE (NEGATIVE); UR KETONES (Dip) NEGATIVE (NEGATIVE); UR LEUKOCYTE ESTERASE (Dip) NEGATIVE Leu/ul (NEGATIVE); UR MUCUS FEW /HPF (NONE SEEN); UR NITRITE (Dip) NEGATIVE (NEGATIVE); UR RBC 134 /HPF (0-5); UR SPECIFIC GRAVITY (Dip) 1.029 (1.003-1.030); UR TOTAL PROTEIN (Dip) 2+ mg/dl (NEGATIVE); UR UROBILINOGEN (Dip) 2+ mg/dL (NEGATIVE); UR WBC 4 /HPF (0-5)
[2018-09-28 14:47] LABS: LACTIC ACID 1.1 mmol/L (0.5-2.0)
[2018-09-28 15:10] LABS: PROCALCITONIN 0.13 ng/mL (0.00-0.10)
[2018-09-28] MEDS: VANCOMYCIN HCL 1.75 GM in SOD CHLORIDE 0.9% 500 ML IVPB (17:06)
[2018-09-28] MEDS: ALBUTEROL/IPRATROPIUM (NEB) 3 ML AMP HHN (19:52)
[2018-09-28] MEDS: ATORVASTATIN 80 MG TAB GTB (21:02)
[2018-09-29] MEDS: INSULIN ASPART [NOVOLOG] 3 ML PEN SC ×6 (01:00→20:55)
[2018-09-29] MEDS: VANCOMYCIN HCL 1.25 GM in SOD CHLORIDE 0.9% 250 ML IVPB ×2 (02:03→15:06)
[2018-09-29 05:25] LABS: ADD MAN DIFF? NO
[2018-09-29 05:31] LABS: BASOPHIL # 0.1 10^3/ul (0.0-0.1); BASOPHILS % 0.4 % (0.0-2.0); EOSINOPHILS # 0.8 10^3/ul (0.0-0.5); EOSINOPHILS % 6.6 % (0.0-7.0); HEMATOCRIT 36.4 % (42.0-52.0); HEMOGLOBIN 11.4 g/dl (14.0-18.0); LYMPHOCYTES # 1.2 10^3/ul (0.8-2.9); LYMPHOCYTES % 10.6 % (15.0-51.0); MEAN CORPUSCULAR HEMOGLOBIN 27.6 pg (29.0-33.0); MEAN CORPUSCULAR HGB CONC 31.3 g/dl (32.0-37.0); MEAN CORPUSCULAR VOLUME 88.1 fl (82.0-101.0); MEAN PLATELET VOLUME 12.9 fl (7.4-10.4); MONOCYTES % 8.7 % (0.0-11.0); NEUTROPHIL # 8.5 10^3/ul (1.6-7.5); NEUTROPHILS % 73.4 % (39.0-77.0); PLATELET COUNT 170 10^3/UL (140-415); RED BLOOD COUNT 4.13 10^6/ul (4.70-6.10); RED CELL DISTRIBUTION WIDTH 16.3 % (11.5-14.5)
[2018-09-29 05:31] LABS: WHITE BLOOD COUNT 11.6 10^3/ul (4.8-10.8)
[2018-09-29] MEDS: PIPER-TAZO 3.375 GM IV (PMX) 100 ML IVPB ×2 (05:54→13:25)
[2018-09-29] MEDS: VALPROIC ACID LIQUID CUP 250 MG/5 ML CUP GTB ×3 (05:54→22:13)
[2018-09-29] MEDS: LANSOPRAZOLE 30 MG CAP GTB ×2 (06:03→17:51)
[2018-09-29] MEDS: NPH, HUMAN INSULIN ISOPHANE 3ML VIAL SC ×3 (06:08→22:15)
[2018-09-29] MEDS: ACETAMINOPHEN 650MG/20.3ML CUP PO ×3 (07:10→22:38)
[2018-09-29] MEDS: LISINOPRIL 5 MG TAB GTB (08:16)
[2018-09-29] MEDS: FUROSEMIDE 20 MG TAB GTB (08:16)
[2018-09-29] MEDS: SUCRALFATE (100 MG/ML) 10ML CUP GTB ×4 (08:16→20:34)
[2018-09-29] MEDS: MAGNESIUM HYDROXIDE 30ML CUP GTB (08:16)
[2018-09-29] MEDS: SENNA TAB GTB ×2 (08:17→20:36)
[2018-09-29] MEDS: ACETYLCYSTEINE 20% 4 ML VIAL NEB ×2 (12:12→20:08)
[2018-09-29] MEDS: ALBUTEROL/IPRATROPIUM (NEB) 3 ML AMP HHN ×2 (12:12→20:08)
[2018-09-29] MEDS: CEFEPIME 1GM/50 ML (PMX) 50 ML IVPB (20:36)
[2018-09-29] MEDS: ATORVASTATIN 80 MG TAB GTB (20:36)
[2018-09-30] MEDS: INSULIN ASPART [NOVOLOG] 3 ML PEN SC ×6 (01:09→21:35)
[2018-09-30 02:32] LABS: VANCOMYCIN,TROUGH 12.7 ug/ml (10.0-20.0)
[2018-09-30] MEDS: VANCOMYCIN HCL 1.25 GM in SOD CHLORIDE 0.9% 250 ML IVPB ×2 (02:52→18:01)
[2018-09-30 04:59] LABS: ADD MAN DIFF? NO
[2018-09-30 05:04] LABS: BASOPHIL # 0.1 10^3/ul (0.0-0.1); BASOPHILS % 0.6 % (0.0-2.0); EOSINOPHILS # 0.9 10^3/ul (0.0-0.5); EOSINOPHILS % 8.9 % (0.0-7.0); HEMATOCRIT 34.4 % (42.0-52.0); HEMOGLOBIN 10.9 g/dl (14.0-18.0); LYMPHOCYTES # 1.1 10^3/ul (0.8-2.9); LYMPHOCYTES % 10.3 % (15.0-51.0); MEAN CORPUSCULAR HGB CONC 31.7 g/dl (32.0-37.0); MEAN CORPUSCULAR VOLUME 88.4 fl (82.0-101.0); MEAN PLATELET VOLUME 12.9 fl (7.4-10.4); MONOCYTE # 0.9 10^3/ul (0.3-0.9); MONOCYTES % 8.2 % (0.0-11.0); NEUTROPHIL # 7.5 10^3/ul (1.6-7.5); NEUTROPHILS % 71.5 % (39.0-77.0); PLATELET COUNT 170 10^3/UL (140-415); RED BLOOD COUNT 3.89 10^6/ul (4.70-6.10)
[2018-09-30 05:04] LABS: WHITE BLOOD COUNT 10.5 10^3/ul (4.8-10.8)
[2018-09-30 05:16] LABS: ANION GAP 3 (5-13); BLOOD UREA NITROGEN 22 mg/dl (7-20); CALCIUM 7.8 mg/dl (8.4-10.2); CARBON DIOXIDE 34 mmol/L (21-31); CHLORIDE 98 mmol/L (97-110); CREATININE 0.57 mg/dl (0.61-1.24); Estimated GFR > 60 mL/min (>60); GLUCOSE 160 mg/dl (70-220); POTASSIUM 4.2 mmol/L (3.5-5.1); SODIUM 135 mmol/L (135-144)
[2018-09-30] MEDS: LANSOPRAZOLE 30 MG CAP GTB ×2 (06:04→17:17)
[2018-09-30] MEDS: VALPROIC ACID LIQUID CUP 250 MG/5 ML CUP GTB ×3 (06:04→21:05)
[2018-09-30] MEDS: NPH, HUMAN INSULIN ISOPHANE 3ML VIAL SC ×3 (06:07→21:35)
[2018-09-30] MEDS: ACETAMINOPHEN 650MG/20.3ML CUP PO ×2 (06:51→15:08)
[2018-09-30] MEDS: ALBUTEROL/IPRATROPIUM (NEB) 3 ML AMP HHN ×2 (07:59→19:43)
[2018-09-30] MEDS: ACETYLCYSTEINE 20% 4 ML VIAL NEB ×2 (08:00→19:43)
[2018-09-30] MEDS: SUCRALFATE (100 MG/ML) 10ML CUP GTB ×4 (10:41→21:05)
[2018-09-30] MEDS: MAGNESIUM HYDROXIDE 30ML CUP GTB (10:41)
[2018-09-30] MEDS: CEFEPIME 1GM/50 ML (PMX) 50 ML IVPB ×2 (10:42→21:05)
[2018-09-30] MEDS: LISINOPRIL 5 MG TAB GTB (10:42)
[2018-09-30] MEDS: SENNA TAB GTB ×2 (10:42→21:06)
[2018-09-30] MEDS: FUROSEMIDE 20 MG TAB GTB (10:46)
[2018-09-30] MEDS: ATORVASTATIN 80 MG TAB GTB (21:06)
[2018-10-01] MEDS: INSULIN ASPART [NOVOLOG] 3 ML PEN SC ×6 (00:39→21:39)
[2018-10-01] MEDS: ACETAMINOPHEN 650MG/20.3ML CUP PO (03:38)
[2018-10-01] MEDS: VANCOMYCIN HCL 1.25 GM in SOD CHLORIDE 0.9% 250 ML IVPB ×2 (04:02→15:23)
[2018-10-01] MEDS: LANSOPRAZOLE 30 MG CAP GTB ×2 (05:23→18:01)
[2018-10-01] MEDS: VALPROIC ACID LIQUID CUP 250 MG/5 ML CUP GTB ×3 (05:23→21:11)
[2018-10-01] MEDS: NPH, HUMAN INSULIN ISOPHANE 3ML VIAL SC ×2 (05:36→13:11)
[2018-10-01 07:06] LABS: ADD MAN DIFF? NO
[2018-10-01 07:19] LABS: WHITE BLOOD COUNT 11.4 10^3/ul (4.8-10.8)
[2018-10-01 07:19] LABS: BASOPHILS % 0.4 % (0.0-2.0); EOSINOPHILS # 1.2 10^3/ul (0.0-0.5); EOSINOPHILS % 10.3 % (0.0-7.0); HEMATOCRIT 33.6 % (42.0-52.0); HEMOGLOBIN 10.9 g/dl (14.0-18.0); LYMPHOCYTES # 1.2 10^3/ul (0.8-2.9); LYMPHOCYTES % 10.3 % (15.0-51.0); MEAN CORPUSCULAR HEMOGLOBIN 28.3 pg (29.0-33.0); MEAN CORPUSCULAR HGB CONC 32.4 g/dl (32.0-37.0); MEAN CORPUSCULAR VOLUME 87.3 fl (82.0-101.0); MEAN PLATELET VOLUME 12.8 fl (7.4-10.4); MONOCYTES % 9.1 % (0.0-11.0); NEUTROPHIL # 7.9 10^3/ul (1.6-7.5); NEUTROPHILS % 69.4 % (39.0-77.0); PLATELET COUNT 162 10^3/UL (140-415); POSITIVE DIFF @See below; RED BLOOD COUNT 3.85 10^6/ul (4.70-6.10); RED CELL DISTRIBUTION WIDTH 15.5 % (11.5-14.5)
[2018-10-01] MEDS: ACETYLCYSTEINE 20% 4 ML VIAL NEB ×2 (08:20→20:28)
[2018-10-01] MEDS: ALBUTEROL/IPRATROPIUM (NEB) 3 ML AMP HHN ×2 (08:20→20:28)
[2018-10-01] MEDS: FUROSEMIDE 20 MG TAB GTB (09:25)
[2018-10-01] MEDS: LISINOPRIL 5 MG TAB GTB (09:26)
[2018-10-01] MEDS: CEFEPIME 1GM/50 ML (PMX) 50 ML IVPB ×2 (09:26→21:10)
[2018-10-01] MEDS: SENNA TAB GTB ×2 (09:26→21:11)
[2018-10-01] MEDS: SUCRALFATE (100 MG/ML) 10ML CUP GTB ×4 (09:26→21:10)
[2018-10-01] MEDS: MAGNESIUM HYDROXIDE 30ML CUP GTB (09:26)
[2018-10-01] MEDS: ATORVASTATIN 80 MG TAB GTB (21:11)
[2018-10-02] MEDS: NPH, HUMAN INSULIN ISOPHANE 3ML VIAL SC ×3 (00:40→13:11)
[2018-10-02] MEDS: INSULIN ASPART [NOVOLOG] 3 ML PEN SC ×5 (00:41→17:33)
[2018-10-02] MEDS: VANCOMYCIN HCL 1.25 GM in SOD CHLORIDE 0.9% 250 ML IVPB ×2 (02:26→14:42)
[2018-10-02 06:11] LABS: ADD MAN DIFF? NO
[2018-10-02] MEDS: LANSOPRAZOLE 30 MG CAP GTB ×2 (06:17→17:31)
[2018-10-02] MEDS: VALPROIC ACID LIQUID CUP 250 MG/5 ML CUP GTB ×3 (06:17→21:46)
[2018-10-02 06:20] LABS: BASOPHILS % 0.4 % (0.0-2.0); EOSINOPHILS # 1.3 10^3/ul (0.0-0.5); EOSINOPHILS % 14.1 % (0.0-7.0); HEMATOCRIT 33.1 % (42.0-52.0); HEMOGLOBIN 10.8 g/dl (14.0-18.0); LYMPHOCYTES # 1.3 10^3/ul (0.8-2.9); LYMPHOCYTES % 13.3 % (15.0-51.0); MEAN CORPUSCULAR HEMOGLOBIN 27.8 pg (29.0-33.0); MEAN CORPUSCULAR HGB CONC 32.6 g/dl (32.0-37.0); MEAN CORPUSCULAR VOLUME 85.1 fl (82.0-101.0); MEAN PLATELET VOLUME 12.2 fl (7.4-10.4); MONOCYTE # 0.8 10^3/ul (0.3-0.9); MONOCYTES % 8.8 % (0.0-11.0); PLATELET COUNT 211 10^3/UL (140-415); RED BLOOD COUNT 3.89 10^6/ul (4.70-6.10); RED CELL DISTRIBUTION WIDTH 15.3 % (11.5-14.5)
[2018-10-02 06:20] LABS: WHITE BLOOD COUNT 9.5 10^3/ul (4.8-10.8)
[2018-10-02] MEDS: ALBUTEROL/IPRATROPIUM (NEB) 3 ML AMP HHN ×2 (07:41→19:57)
[2018-10-02] MEDS: ACETYLCYSTEINE 20% 4 ML VIAL NEB ×2 (07:51→19:56)
[2018-10-02] MEDS: CEFEPIME 1GM/50 ML (PMX) 50 ML IVPB ×2 (08:54→21:01)
[2018-10-02] MEDS: SENNA TAB GTB ×2 (08:54→21:02)
[2018-10-02] MEDS: MAGNESIUM HYDROXIDE 30ML CUP GTB (08:54)
[2018-10-02] MEDS: SUCRALFATE (100 MG/ML) 10ML CUP GTB ×4 (08:54→21:02)
[2018-10-02] MEDS: FUROSEMIDE 20 MG TAB GTB (08:55)
[2018-10-02] MEDS: LISINOPRIL 5 MG TAB GTB (08:55)
[2018-10-02] MEDS: ATORVASTATIN 80 MG TAB GTB (21:02)
[2018-10-03] MEDS: NPH, HUMAN INSULIN ISOPHANE 3ML VIAL SC ×4 (01:20→22:13)
[2018-10-03] MEDS: INSULIN ASPART [NOVOLOG] 3 ML PEN SC ×7 (01:21→22:14)
[2018-10-03] MEDS: VANCOMYCIN HCL 1.25 GM in SOD CHLORIDE 0.9% 250 ML IVPB ×2 (02:37→15:36)
[2018-10-03] MEDS: VALPROIC ACID LIQUID CUP 250 MG/5 ML CUP GTB ×3 (05:32→21:58)
[2018-10-03] MEDS: LANSOPRAZOLE 30 MG CAP GTB ×2 (05:32→17:54)
[2018-10-03] MEDS: ALBUTEROL/IPRATROPIUM (NEB) 3 ML AMP HHN ×2 (07:49→21:37)
[2018-10-03] MEDS: ACETYLCYSTEINE 20% 4 ML VIAL NEB ×2 (08:04→20:00)
[2018-10-03] MEDS: SUCRALFATE (100 MG/ML) 10ML CUP GTB ×4 (09:18→20:58)
[2018-10-03] MEDS: FUROSEMIDE 20 MG TAB GTB (09:19)
[2018-10-03] MEDS: SENNA TAB GTB ×2 (09:19→20:57)
[2018-10-03] MEDS: CEFEPIME 1GM/50 ML (PMX) 50 ML IVPB ×2 (09:19→20:56)
[2018-10-03] MEDS: LISINOPRIL 5 MG TAB GTB (09:19)
[2018-10-03] MEDS: MAGNESIUM HYDROXIDE 30ML CUP GTB (09:21)
[2018-10-03] MEDS: ATORVASTATIN 80 MG TAB GTB (20:57)
[2018-10-04] MEDS: INSULIN ASPART [NOVOLOG] 3 ML PEN SC ×6 (01:09→21:46)
[2018-10-04] MEDS: VANCOMYCIN HCL 1.25 GM in SOD CHLORIDE 0.9% 250 ML IVPB ×2 (02:07→14:58)
[2018-10-04] MEDS: VALPROIC ACID LIQUID CUP 250 MG/5 ML CUP GTB ×3 (05:43→22:17)
[2018-10-04] MEDS: LANSOPRAZOLE 30 MG CAP GTB ×2 (06:09→18:38)
[2018-10-04] MEDS: NPH, HUMAN INSULIN ISOPHANE 3ML VIAL SC ×3 (06:15→22:58)
[2018-10-04 07:53] LABS: ADD MAN DIFF? NO
[2018-10-04 07:59] LABS: BASOPHIL # 0.1 10^3/ul (0.0-0.1); BASOPHILS % 0.6 % (0.0-2.0); EOSINOPHILS # 1.5 10^3/ul (0.0-0.5); EOSINOPHILS % 15.2 % (0.0-7.0); HEMATOCRIT 30.1 % (42.0-52.0); HEMOGLOBIN 9.8 g/dl (14.0-18.0); LYMPHOCYTES # 1.3 10^3/ul (0.8-2.9); LYMPHOCYTES % 13.6 % (15.0-51.0); MEAN CORPUSCULAR HEMOGLOBIN 27.6 pg (29.0-33.0); MEAN CORPUSCULAR HGB CONC 32.6 g/dl (32.0-37.0); MEAN CORPUSCULAR VOLUME 84.8 fl (82.0-101.0); MEAN PLATELET VOLUME 11.3 fl (7.4-10.4); MONOCYTE # 0.8 10^3/ul (0.3-0.9); MONOCYTES % 8.5 % (0.0-11.0); NEUTROPHILS % 61.6 % (39.0-77.0); PLATELET COUNT 256 10^3/UL (140-415); RED BLOOD COUNT 3.55 10^6/ul (4.70-6.10); RED CELL DISTRIBUTION WIDTH 15.1 % (11.5-14.5)
[2018-10-04 07:59] LABS: WHITE BLOOD COUNT 9.8 10^3/ul (4.8-10.8)
[2018-10-04 08:17] LABS: ANION GAP 4 (5-13); BLOOD UREA NITROGEN 20 mg/dl (7-20); CARBON DIOXIDE 28 mmol/L (21-31); CHLORIDE 93 mmol/L (97-110); CREATININE 0.47 mg/dl (0.61-1.24); Estimated GFR > 60 mL/min (>60); GLUCOSE 169 mg/dl (70-220); POTASSIUM 4.4 mmol/L (3.5-5.1); SODIUM 125 mmol/L (135-144)
[2018-10-04] MEDS: ACETYLCYSTEINE 20% 4 ML VIAL NEB ×2 (08:37→19:50)
[2018-10-04] MEDS: ALBUTEROL/IPRATROPIUM (NEB) 3 ML AMP HHN ×2 (08:37→19:50)
[2018-10-04] MEDS: MAGNESIUM HYDROXIDE 30ML CUP GTB (09:41)
[2018-10-04] MEDS: SENNA TAB GTB ×2 (09:42→21:26)
[2018-10-04] MEDS: SUCRALFATE (100 MG/ML) 10ML CUP GTB ×4 (09:42→21:25)
[2018-10-04] MEDS: FUROSEMIDE 20 MG TAB GTB (09:46)
[2018-10-04] MEDS: LISINOPRIL 5 MG TAB GTB (09:46)
[2018-10-04 14:35] LABS: VANCOMYCIN,TROUGH 13.7 ug/ml (10.0-20.0)
[2018-10-04] MEDS: ATORVASTATIN 80 MG TAB GTB (21:25)
[2018-10-05] MEDS: INSULIN ASPART [NOVOLOG] 3 ML PEN SC ×6 (01:14→21:00)
[2018-10-05] MEDS: VANCOMYCIN HCL 1.25 GM in SOD CHLORIDE 0.9% 250 ML IVPB ×2 (02:54→15:29)
[2018-10-05] MEDS: LANSOPRAZOLE 30 MG CAP GTB ×2 (06:11→17:48)
[2018-10-05] MEDS: VALPROIC ACID LIQUID CUP 250 MG/5 ML CUP GTB ×3 (06:11→21:53)
[2018-10-05] MEDS: NPH, HUMAN INSULIN ISOPHANE 3ML VIAL SC ×3 (06:56→21:55)
[2018-10-05 07:08] LABS: ANION GAP 3 (5-13); BLOOD UREA NITROGEN 19 mg/dl (7-20); CARBON DIOXIDE 30 mmol/L (21-31); CHLORIDE 94 mmol/L (97-110); CREATININE 0.44 mg/dl (0.61-1.24); Estimated GFR > 60 mL/min (>60); GLUCOSE 145 mg/dl (70-220); POTASSIUM 4.5 mmol/L (3.5-5.1); SODIUM 127 mmol/L (135-144)
[2018-10-05] MEDS: ACETYLCYSTEINE 20% 4 ML VIAL NEB ×2 (08:57→21:13)
[2018-10-05] MEDS: ALBUTEROL/IPRATROPIUM (NEB) 3 ML AMP HHN ×2 (08:57→21:13)
[2018-10-05] MEDS: SUCRALFATE (100 MG/ML) 10ML CUP GTB ×4 (09:26→20:09)
[2018-10-05] MEDS: MAGNESIUM HYDROXIDE 30ML CUP GTB (09:26)
[2018-10-05] MEDS: SENNA TAB GTB ×2 (09:27→20:09)
[2018-10-05] MEDS: LISINOPRIL 5 MG TAB GTB (09:28)
[2018-10-05] MEDS: FUROSEMIDE 20 MG TAB GTB (09:28)
[2018-10-05] MEDS: ATORVASTATIN 80 MG TAB GTB (20:09)
[2018-10-05] MEDS: SOD CHLORIDE 0.9% 250 ML IV (20:22)
[2018-10-06] MEDS: INSULIN ASPART [NOVOLOG] 3 ML PEN SC ×6 (00:47→21:00)
[2018-10-06] MEDS: VANCOMYCIN HCL 1.25 GM in SOD CHLORIDE 0.9% 250 ML IVPB ×2 (02:55→13:58)
[2018-10-06] MEDS: VALPROIC ACID LIQUID CUP 250 MG/5 ML CUP GTB ×3 (05:33→21:15)
[2018-10-06] MEDS: LANSOPRAZOLE 30 MG CAP GTB ×2 (05:33→17:21)
[2018-10-06] MEDS: NPH, HUMAN INSULIN ISOPHANE 3ML VIAL SC ×3 (05:48→21:25)
[2018-10-06] MEDS: ALBUTEROL/IPRATROPIUM (NEB) 3 ML AMP HHN ×2 (08:06→20:25)
[2018-10-06] MEDS: ACETYLCYSTEINE 20% 4 ML VIAL NEB ×2 (08:06→20:25)
[2018-10-06 08:30] LABS: ANION GAP 5 (5-13); BLOOD UREA NITROGEN 15 mg/dl (7-20); CARBON DIOXIDE 27 mmol/L (21-31); CHLORIDE 93 mmol/L (97-110); CREATININE 0.41 mg/dl (0.61-1.24); Estimated GFR > 60 mL/min (>60); GLUCOSE 139 mg/dl (70-220); POTASSIUM 4.4 mmol/L (3.5-5.1); SODIUM 125 mmol/L (135-144)
[2018-10-06] MEDS: SUCRALFATE (100 MG/ML) 10ML CUP GTB ×4 (08:59→20:33)
[2018-10-06] MEDS: FUROSEMIDE 20 MG TAB GTB (09:00)
[2018-10-06] MEDS: MAGNESIUM HYDROXIDE 30ML CUP GTB (09:00)
[2018-10-06] MEDS: LISINOPRIL 5 MG TAB GTB (09:00)
[2018-10-06] MEDS: SENNA TAB GTB ×2 (09:01→20:34)
[2018-10-06] MEDS: ATORVASTATIN 80 MG TAB GTB (20:34)
[2018-10-07] MEDS: INSULIN ASPART [NOVOLOG] 3 ML PEN SC ×6 (00:44→21:00)
[2018-10-07] MEDS: VANCOMYCIN HCL 1.25 GM in SOD CHLORIDE 0.9% 250 ML IVPB ×2 (03:43→15:32)
[2018-10-07] MEDS: VALPROIC ACID LIQUID CUP 250 MG/5 ML CUP GTB ×3 (05:18→22:02)
[2018-10-07] MEDS: LANSOPRAZOLE 30 MG CAP GTB ×2 (05:18→17:55)
[2018-10-07] MEDS: NPH, HUMAN INSULIN ISOPHANE 3ML VIAL SC ×3 (06:21→22:21)
[2018-10-07] MEDS: SUCRALFATE (100 MG/ML) 10ML CUP GTB ×4 (09:02→20:07)
[2018-10-07] MEDS: SENNA TAB GTB ×2 (09:02→20:08)
[2018-10-07] MEDS: ACETYLCYSTEINE 20% 4 ML VIAL NEB ×2 (09:03→19:58)
[2018-10-07] MEDS: LISINOPRIL 5 MG TAB GTB (09:03)
[2018-10-07 09:09] LABS: ADD MAN DIFF? NO
[2018-10-07 09:12] LABS: BASOPHILS % 0.2 % (0.0-2.0); EOSINOPHILS # 1.2 10^3/ul (0.0-0.5); EOSINOPHILS % 14.2 % (0.0-7.0); HEMATOCRIT 32.1 % (42.0-52.0); HEMOGLOBIN 10.3 g/dl (14.0-18.0); LYMPHOCYTES # 1.2 10^3/ul (0.8-2.9); LYMPHOCYTES % 13.5 % (15.0-51.0); MEAN CORPUSCULAR HEMOGLOBIN 27.3 pg (29.0-33.0); MEAN CORPUSCULAR HGB CONC 32.1 g/dl (32.0-37.0); MEAN CORPUSCULAR VOLUME 85.1 fl (82.0-101.0); MEAN PLATELET VOLUME 10.3 fl (7.4-10.4); MONOCYTE # 0.7 10^3/ul (0.3-0.9); MONOCYTES % 7.6 % (0.0-11.0); NEUTROPHIL # 5.5 10^3/ul (1.6-7.5); NEUTROPHILS % 63.6 % (39.0-77.0); PLATELET COUNT 305 10^3/UL (140-415); RED BLOOD COUNT 3.77 10^6/ul (4.70-6.10); RED CELL DISTRIBUTION WIDTH 15.6 % (11.5-14.5)
[2018-10-07 09:12] LABS: WHITE BLOOD COUNT 8.7 10^3/ul (4.8-10.8)
[2018-10-07 09:34] LABS: ANION GAP 4 (5-13); BLOOD UREA NITROGEN 17 mg/dl (7-20); CALCIUM 8.2 mg/dl (8.4-10.2); CARBON DIOXIDE 31 mmol/L (21-31); CHLORIDE 92 mmol/L (97-110); CREATININE 0.43 mg/dl (0.61-1.24); Estimated GFR > 60 mL/min (>60); GLUCOSE 107 mg/dl (70-220); POTASSIUM 4.3 mmol/L (3.5-5.1); SODIUM 127 mmol/L (135-144)
[2018-10-07] MEDS: ALBUTEROL/IPRATROPIUM (NEB) 3 ML AMP HHN (19:58)
[2018-10-07] MEDS: SOD CHLORIDE 0.9% 1,000 ML IV (20:06)
[2018-10-07] MEDS: ATORVASTATIN 80 MG TAB GTB (20:07)
[2018-10-08] MEDS: INSULIN ASPART [NOVOLOG] 3 ML PEN SC ×6 (00:18→23:13)
[2018-10-08] MEDS: VANCOMYCIN HCL 1.25 GM in SOD CHLORIDE 0.9% 250 ML IVPB ×2 (03:46→15:20)
[2018-10-08] MEDS: LANSOPRAZOLE 30 MG CAP GTB ×2 (05:38→17:23)
[2018-10-08] MEDS: VALPROIC ACID LIQUID CUP 250 MG/5 ML CUP GTB ×3 (05:38→21:08)
[2018-10-08] MEDS: NPH, HUMAN INSULIN ISOPHANE 3ML VIAL SC ×3 (05:49→23:19)
[2018-10-08 07:01] LABS: ANION GAP 3 (5-13); BLOOD UREA NITROGEN 15 mg/dl (7-20); CALCIUM 8.3 mg/dl (8.4-10.2); CARBON DIOXIDE 29 mmol/L (21-31); CHLORIDE 94 mmol/L (97-110); CREATININE 0.44 mg/dl (0.61-1.24); Estimated GFR > 60 mL/min (>60); GLUCOSE 123 mg/dl (70-220); POTASSIUM 4.3 mmol/L (3.5-5.1); SODIUM 126 mmol/L (135-144)
[2018-10-08] MEDS: ACETYLCYSTEINE 20% 4 ML VIAL NEB ×2 (08:01→20:15)
[2018-10-08] MEDS: ALBUTEROL/IPRATROPIUM (NEB) 3 ML AMP HHN ×2 (08:02→20:15)
[2018-10-08] MEDS: LISINOPRIL 5 MG TAB GTB (08:41)
[2018-10-08] MEDS: SENNA TAB GTB ×2 (08:41→21:09)
[2018-10-08] MEDS: SUCRALFATE (100 MG/ML) 10ML CUP GTB ×4 (08:42→21:08)
[2018-10-08] MEDS: SOD CHLORIDE 0.9% 1,000 ML IV (12:05)
[2018-10-08 15:34] LABS: VANCOMYCIN,TROUGH 13.8 ug/ml (10.0-20.0)
[2018-10-08] MEDS: ATORVASTATIN 80 MG TAB GTB (21:08)
[2018-10-09] MEDS: VANCOMYCIN HCL 1.25 GM in SOD CHLORIDE 0.9% 250 ML IVPB ×2 (03:35→15:45)
[2018-10-09] MEDS: INSULIN ASPART [NOVOLOG] 3 ML PEN SC ×3 (06:00→17:18)
[2018-10-09 06:24] LABS: ADD MAN DIFF? NO
[2018-10-09 06:27] LABS: WHITE BLOOD COUNT 15.9 10^3/ul (4.8-10.8)
[2018-10-09 06:27] LABS: BASOPHILS % 0.2 % (0.0-2.0); EOSINOPHILS # 0.7 10^3/ul (0.0-0.5); EOSINOPHILS % 4.6 % (0.0-7.0); HEMATOCRIT 34.2 % (42.0-52.0); LYMPHOCYTES % 6.2 % (15.0-51.0); MEAN CORPUSCULAR HGB CONC 32.2 g/dl (32.0-37.0); MEAN PLATELET VOLUME 10.4 fl (7.4-10.4); MONOCYTE # 0.7 10^3/ul (0.3-0.9); MONOCYTES % 4.5 % (0.0-11.0); NEUTROPHIL # 13.4 10^3/ul (1.6-7.5); NEUTROPHILS % 84.1 % (39.0-77.0); PLATELET COUNT 319 10^3/UL (140-415); RED BLOOD COUNT 3.93 10^6/ul (4.70-6.10); RED CELL DISTRIBUTION WIDTH 15.8 % (11.5-14.5)
[2018-10-09] MEDS: VALPROIC ACID LIQUID CUP 250 MG/5 ML CUP GTB ×3 (06:40→23:06)
[2018-10-09] MEDS: LANSOPRAZOLE 30 MG CAP GTB ×2 (06:40→17:19)
[2018-10-09] MEDS: NPH, HUMAN INSULIN ISOPHANE 3ML VIAL SC ×3 (06:51→23:11)
[2018-10-09 07:40] LABS: ANION GAP 5 (5-13); BLOOD UREA NITROGEN 15 mg/dl (7-20); CALCIUM 8.6 mg/dl (8.4-10.2); CARBON DIOXIDE 30 mmol/L (21-31); CHLORIDE 97 mmol/L (97-110); CREATININE 0.45 mg/dl (0.61-1.24); Estimated GFR > 60 mL/min (>60); GLUCOSE 134 mg/dl (70-220); POTASSIUM 4.4 mmol/L (3.5-5.1); SODIUM 132 mmol/L (135-144)
[2018-10-09] MEDS: ACETYLCYSTEINE 20% 4 ML VIAL NEB ×2 (08:12→20:53)
[2018-10-09] MEDS: ALBUTEROL/IPRATROPIUM (NEB) 3 ML AMP HHN ×2 (08:12→20:53)
[2018-10-09] MEDS: LISINOPRIL 5 MG TAB GTB (08:47)
[2018-10-09] MEDS: SENNA TAB GTB ×2 (08:47→20:08)
[2018-10-09] MEDS: SUCRALFATE (100 MG/ML) 10ML CUP GTB ×4 (08:48→20:08)
[2018-10-09] MEDS: ATORVASTATIN 80 MG TAB GTB (20:08)
[2018-10-10] MEDS: VANCOMYCIN HCL 1.25 GM in SOD CHLORIDE 0.9% 250 ML IVPB ×2 (02:53→15:29)
[2018-10-10] MEDS: VALPROIC ACID LIQUID CUP 250 MG/5 ML CUP GTB ×3 (05:12→21:42)
[2018-10-10] MEDS: LANSOPRAZOLE 30 MG CAP GTB ×2 (05:12→18:00)
[2018-10-10] MEDS: INSULIN ASPART [NOVOLOG] 3 ML PEN SC ×4 (05:29→17:42)
[2018-10-10] MEDS: NPH, HUMAN INSULIN ISOPHANE 3ML VIAL SC ×3 (05:38→21:50)
[2018-10-10 06:41] LABS: ADD MAN DIFF? NO
[2018-10-10 06:55] LABS: BASOPHILS % 0.3 % (0.0-2.0); EOSINOPHILS # 0.7 10^3/ul (0.0-0.5); EOSINOPHILS % 8.3 % (0.0-7.0); HEMATOCRIT 35.4 % (42.0-52.0); HEMOGLOBIN 11.2 g/dl (14.0-18.0); LYMPHOCYTES # 1.3 10^3/ul (0.8-2.9); LYMPHOCYTES % 14.5 % (15.0-51.0); MEAN CORPUSCULAR HEMOGLOBIN 28.2 pg (29.0-33.0); MEAN CORPUSCULAR HGB CONC 31.6 g/dl (32.0-37.0); MEAN CORPUSCULAR VOLUME 89.2 fl (82.0-101.0); MEAN PLATELET VOLUME 10.7 fl (7.4-10.4); MONOCYTE # 0.5 10^3/ul (0.3-0.9); MONOCYTES % 6.2 % (0.0-11.0); NEUTROPHIL # 6.1 10^3/ul (1.6-7.5); NEUTROPHILS % 70.4 % (39.0-77.0); PLATELET COUNT 296 10^3/UL (140-415); RED BLOOD COUNT 3.97 10^6/ul (4.70-6.10); RED CELL DISTRIBUTION WIDTH 15.7 % (11.5-14.5)
[2018-10-10 06:55] LABS: WHITE BLOOD COUNT 8.7 10^3/ul (4.8-10.8)
[2018-10-10 07:22] LABS: ANION GAP 5 (5-13); BLOOD UREA NITROGEN 16 mg/dl (7-20); CALCIUM 8.6 mg/dl (8.4-10.2); CARBON DIOXIDE 30 mmol/L (21-31); CHLORIDE 99 mmol/L (97-110); CREATININE 0.37 mg/dl (0.61-1.24); Estimated GFR > 60 mL/min (>60); GLUCOSE 120 mg/dl (70-220); POTASSIUM 4.8 mmol/L (3.5-5.1); SODIUM 134 mmol/L (135-144)
[2018-10-10] MEDS: ACETYLCYSTEINE 20% 4 ML VIAL NEB ×2 (08:19→21:07)
[2018-10-10] MEDS: ALBUTEROL/IPRATROPIUM (NEB) 3 ML AMP HHN ×2 (08:20→21:08)
[2018-10-10] MEDS: SUCRALFATE (100 MG/ML) 10ML CUP GTB ×4 (08:56→21:10)
[2018-10-10] MEDS: LISINOPRIL 5 MG TAB GTB (08:57)
[2018-10-10] MEDS: SENNA TAB GTB ×2 (08:57→21:10)
[2018-10-10] MEDS: ATORVASTATIN 80 MG TAB GTB (21:10)
[2018-10-11] MEDS: INSULIN ASPART [NOVOLOG] 3 ML PEN SC ×5 (00:02→23:53)
[2018-10-11] MEDS: VANCOMYCIN HCL 1.25 GM in SOD CHLORIDE 0.9% 250 ML IVPB ×2 (03:27→15:00)
[2018-10-11] MEDS: LANSOPRAZOLE 30 MG CAP GTB ×2 (05:34→18:06)
[2018-10-11] MEDS: VALPROIC ACID LIQUID CUP 250 MG/5 ML CUP GTB ×3 (05:34→22:08)
[2018-10-11] MEDS: NPH, HUMAN INSULIN ISOPHANE 3ML VIAL SC ×3 (06:29→22:17)
[2018-10-11] MEDS: ACETYLCYSTEINE 20% 4 ML VIAL NEB ×2 (08:02→19:46)
[2018-10-11] MEDS: ALBUTEROL/IPRATROPIUM (NEB) 3 ML AMP HHN ×2 (08:02→19:45)
[2018-10-11] MEDS: SUCRALFATE (100 MG/ML) 10ML CUP GTB ×4 (10:48→20:57)
[2018-10-11] MEDS: SENNA TAB GTB ×2 (10:49→20:58)
[2018-10-11] MEDS: LISINOPRIL 5 MG TAB GTB (10:51)
[2018-10-11] MEDS: ATORVASTATIN 80 MG TAB GTB (20:58)
[2018-10-12] MEDS: VANCOMYCIN HCL 1.25 GM in SOD CHLORIDE 0.9% 250 ML IVPB (03:04)
[2018-10-12] MEDS: LANSOPRAZOLE 30 MG CAP GTB (05:39)
[2018-10-12] MEDS: VALPROIC ACID LIQUID CUP 250 MG/5 ML CUP GTB ×2 (05:39→11:51)
[2018-10-12] MEDS: INSULIN ASPART [NOVOLOG] 3 ML PEN SC ×2 (05:40→12:00)
[2018-10-12] MEDS: NPH, HUMAN INSULIN ISOPHANE 3ML VIAL SC ×2 (06:34→13:41)
[2018-10-12] MEDS: SENNA TAB GTB (08:01)
[2018-10-12] MEDS: SUCRALFATE (100 MG/ML) 10ML CUP GTB ×2 (08:03→11:52)
[2018-10-12] MEDS: LISINOPRIL 5 MG TAB GTB (08:15)
[2018-10-12] MEDS: ACETYLCYSTEINE 20% 4 ML VIAL NEB (08:17)
[2018-10-12] MEDS: ALBUTEROL/IPRATROPIUM (NEB) 3 ML AMP HHN (08:18)
[2018-10-12] MEDS: GLUCOSE GEL 15 GRAM TUBE BUCCAL (12:22)
== END 2018-10-12 17:15 | DRG 871 ==
LOC: ICU 22:51 → TEL 09-30 08:33 → ICU 09-24 11:50 → TEL 09-30 20:14 → E/R 21:01 → 2NE 09-23 18:46
PROC: 3E0F7GC Introduction of Other Therapeutic Substance into Respiratory Tract, Via Natural or Artificial Opening (ICD-10-PCS; principal; 2018-09-22)
DX: A41.9 Sepsis, unspecified organism (principal); I61.9 Nontraumatic intracerebral hemorrhage, unspecified; J18.9 Pneumonia, unspecified organism; I50.22 Chronic systolic (congestive) heart failure; G93.40 Encephalopathy, unspecified; E87.1 Hypo-osmolality and hyponatremia; I62.9 Nontraumatic intracranial hemorrhage, unspecified; J96.10 Chronic respiratory failure, unspecified whether with hypoxia or hypercapnia; E11.8 Type 2 diabetes mellitus with unspecified complications; I11.0 Hypertensive heart disease with heart failure; R13.10 Dysphagia, unspecified; I69.10 Unspecified sequelae of nontraumatic intracerebral hemorrhage; I25.5 Ischemic cardiomyopathy; E78.5 Hyperlipidemia, unspecified; D64.9 Anemia, unspecified; M19.90 Unspecified osteoarthritis, unspecified site; R00.0 Tachycardia, unspecified; G40.909 Epilepsy, unspecified, not intractable, without status epilepticus; E66.9 Obesity, unspecified; Z68.35 Body mass index [BMI] 35.0-35.9, adult; Z66 Do not resuscitate; I25.10 Atherosclerotic heart disease of native coronary artery without angina pectoris; R45.1 Restlessness and agitation; R19.7 Diarrhea, unspecified; R50.9 Fever, unspecified; Z79.82 Long term (current) use of aspirin; Z93.0 Tracheostomy status; Z79.4 Long term (current) use of insulin; Z93.1 Gastrostomy status
CPT/HCPCS: 36415; 36600; 70450; 70553; 71045; 80048; 80053; 80061; 80164; 80202; 81001; 82550; 82553; 82803; 82962; 83036; 83605; 83735; 84100; 84145; 84443; 84484; 85025; 85610; 85730; 87040-91; 87070; 87075; 87081; 87086; 93005; 93306; 94640; 94664; 96374; 96375; 99285-25

== ENCOUNTER 2018-11-04 23:37 | Inpatient (IN) | payer MEDICARE ==
[2018-11-05] MEDS: CEFEPIME 2GM/50 ML (PMX) 50 ML IVPB (00:08)
[2018-11-05] MEDS: SOD CHLORIDE 0.9% 2,700 ML IV (00:08)
[2018-11-05 00:10] LABS: ADD MAN DIFF? NO
[2018-11-05 00:14] LABS: BASOPHILS % 0.2 % (0.0-2.0); EOSINOPHILS # 0.1 10^3/ul (0.0-0.5); EOSINOPHILS % 0.5 % (0.0-7.0); HEMATOCRIT 35.8 % (42.0-52.0); HEMOGLOBIN 11.3 g/dl (14.0-18.0); LYMPHOCYTES % 5.8 % (15.0-51.0); MEAN CORPUSCULAR HEMOGLOBIN 27.2 pg (29.0-33.0); MEAN CORPUSCULAR HGB CONC 31.6 g/dl (32.0-37.0); MEAN CORPUSCULAR VOLUME 86.1 fl (82.0-101.0); MEAN PLATELET VOLUME 10.3 fl (7.4-10.4); MONOCYTE # 0.7 10^3/ul (0.3-0.9); MONOCYTES % 4.1 % (0.0-11.0); NEUTROPHIL # 15.3 10^3/ul (1.6-7.5); NEUTROPHILS % 88.9 % (39.0-77.0); PLATELET COUNT 438 10^3/UL (140-415); RED BLOOD COUNT 4.16 10^6/ul (4.70-6.10); RED CELL DISTRIBUTION WIDTH 15.1 % (11.5-14.5)
[2018-11-05 00:14] LABS: WHITE BLOOD COUNT 17.2 10^3/ul (4.8-10.8)
[2018-11-05] MEDS ORDERED: ACETAMINOPHEN 325 MG TAB PO (00:30)
[2018-11-05] MEDS ORDERED: ONDANSETRON 4 MG INJ IV (00:30)
[2018-11-05 00:31] LABS: ALANINE AMINOTRANSFERASE 8 IU/L (13-69); ALBUMIN 3.5 g/dl (3.3-4.9); ALBUMIN/GLOBULIN RATIO 0.79; ALKALINE PHOSPHATASE 110 IU/L (42-121); ANION GAP 7 (5-13); ASPARTATE AMINO TRANSFERASE 19 IU/L (15-46); BILIRUBIN,INDIRECT 0.4 mg/dl (0-1.1); BILIRUBIN,TOTAL 0.4 mg/dl (0.2-1.3); BLOOD UREA NITROGEN 20 mg/dl (7-20); CALCIUM 9.4 mg/dl (8.4-10.2); CARBON DIOXIDE 34 mmol/L (21-31); CHLORIDE 96 mmol/L (97-110); CREATININE 0.59 mg/dl (0.61-1.24); Estimated GFR > 60 mL/min (>60); GLUCOSE 209 mg/dl (70-220); POTASSIUM 4.7 mmol/L (3.5-5.1); SODIUM 137 mmol/L (135-144); TOTAL PROTEIN 7.9 g/dl (6.1-8.1)
[2018-11-05 00:35] LABS: INR 0.99; PARTIAL THROMBOPLASTIN TIME 33.5 Sec (23.0-35.0); PROTIME 13.2 Sec (11.9-14.9)
[2018-11-05 00:42] LABS: TROPONIN-I 0.015 ng/ml (0.000-0.120)
[2018-11-05] MEDS: VANCOMYCIN 1 GM (PMX) 250 ML IVPB (00:48)
[2018-11-05 01:02] LABS: ADD UMIC YES; UR AMORPHOUS CRYSTAL FEW /HPF (NONE SEEN); UR ASCORBIC ACID 20 mg/dL (NEGATIVE); UR BACTERIA FEW /HPF (NONE SEEN); UR BILIRUBIN (Dip) NEGATIVE (NEGATIVE); UR BLOOD (Dip) NEGATIVE (NEGATIVE); UR CLARITY CLOUDY (CLEAR); UR COLOR AMBER (YELLOW); UR GLUCOSE (Dip) NEGATIVE (NEGATIVE); UR KETONES (Dip) 1+ mg/dL (NEGATIVE); UR LEUKOCYTE ESTERASE (Dip) 2+ Leu/ul (NEGATIVE); UR MUCUS FEW /HPF (NONE SEEN); UR NITRITE (Dip) POSITIVE (NEGATIVE); UR RBC 1 /HPF (0-5); UR SPECIFIC GRAVITY (Dip) 1.018 (1.003-1.030); UR TOTAL PROTEIN (Dip) 2+ mg/dl (NEGATIVE); UR UROBILINOGEN (Dip) NEGATIVE (NEGATIVE); UR WBC 48 /HPF (0-5)
[2018-11-05 02:16] LABS: LACTIC ACID 1.4 mmol/L (0.5-2.0)
[2018-11-05 08:05] LABS: LACTIC ACID 1.2 mmol/L (0.5-2.0)
[2018-11-05] MEDS ORDERED: BISACODYL 10 MG SUPP PR (12:30)
[2018-11-05] MEDS ORDERED: ACETAMINOPHEN 325 MG TAB GTB (12:30)
[2018-11-05] MEDS: MAGNESIUM HYDROXIDE 30ML CUP GTB (12:39)
[2018-11-05] MEDS: VALPROIC ACID LIQUID CUP 250 MG/5 ML CUP GTB ×2 (12:40→23:38)
[2018-11-05] MEDS: LISINOPRIL 10 MG TAB GTB (12:40)
[2018-11-05] MEDS: SUCRALFATE (100 MG/ML) 10ML CUP GTB ×3 (12:40→23:38)
[2018-11-05] MEDS ORDERED: VANCOMYCIN IV PER PHARMACY XX (23:30)
[2018-11-05] MEDS: DOCUSATE SODIUM 100 MG CAP PO (23:38)
[2018-11-05] MEDS: SENNA TAB GTB (23:39)
[2018-11-05] MEDS: LANSOPRAZOLE 30 MG CAP GTB (23:39)
[2018-11-05] MEDS: HYDROCODONE/APAP (5/325) TAB GTB (23:40)
[2018-11-06] MEDS: CEFEPIME 2GM/50 ML (PMX) 50 ML IVPB ×3 (01:48→22:09)
[2018-11-06] MEDS: VANCOMYCIN HCL 1.25 GM in SOD CHLORIDE 0.9% 250 ML IVPB ×3 (01:48→23:40)
[2018-11-06] MEDS: VALPROIC ACID LIQUID CUP 250 MG/5 ML CUP GTB ×3 (07:01→22:10)
[2018-11-06] MEDS: LANSOPRAZOLE 30 MG CAP GTB ×2 (08:24→22:10)
[2018-11-06] MEDS: MULTIVITAMINS/MINERALS TAB GTB (08:24)
[2018-11-06] MEDS: LISINOPRIL 10 MG TAB GTB (08:24)
[2018-11-06] MEDS: SUCRALFATE (100 MG/ML) 10ML CUP GTB ×4 (08:24→22:10)
[2018-11-06] MEDS: ASCORBIC ACID 500 MG TAB GTB (08:24)
[2018-11-06] MEDS: ZINC SULFATE 220 MG CAP GTB (08:24)
[2018-11-06] MEDS: SENNA TAB GTB ×2 (08:24→22:10)
[2018-11-06 11:36] LABS: ADD MAN DIFF? NO
[2018-11-06 11:44] LABS: BASOPHILS % 0.3 % (0.0-2.0); EOSINOPHILS # 0.2 10^3/ul (0.0-0.5); EOSINOPHILS % 3.3 % (0.0-7.0); HEMATOCRIT 30.9 % (42.0-52.0); HEMOGLOBIN 9.7 g/dl (14.0-18.0); LYMPHOCYTES % 13.9 % (15.0-51.0); MEAN CORPUSCULAR HGB CONC 31.4 g/dl (32.0-37.0); MEAN CORPUSCULAR VOLUME 86.1 fl (82.0-101.0); MEAN PLATELET VOLUME 10.6 fl (7.4-10.4); MONOCYTE # 0.4 10^3/ul (0.3-0.9); MONOCYTES % 5.8 % (0.0-11.0); NEUTROPHIL # 5.2 10^3/ul (1.6-7.5); NEUTROPHILS % 75.3 % (39.0-77.0); PLATELET COUNT 338 10^3/UL (140-415); RED BLOOD COUNT 3.59 10^6/ul (4.70-6.10); RED CELL DISTRIBUTION WIDTH 15.4 % (11.5-14.5)
[2018-11-06 11:44] LABS: WHITE BLOOD COUNT 6.9 10^3/ul (4.8-10.8)
[2018-11-06 12:06] LABS: ANION GAP 4 (5-13); BLOOD UREA NITROGEN 19 mg/dl (7-20); CALCIUM 8.7 mg/dl (8.4-10.2); CARBON DIOXIDE 32 mmol/L (21-31); CHLORIDE 103 mmol/L (97-110); CREATININE 0.45 mg/dl (0.61-1.24); Estimated GFR > 60 mL/min (>60); GLUCOSE 161 mg/dl (70-220); POTASSIUM 4.1 mmol/L (3.5-5.1); SODIUM 139 mmol/L (135-144)
[2018-11-06] MEDS: MAGNESIUM HYDROXIDE 30ML CUP GTB (12:17)
[2018-11-06] MEDS: DOCUSATE SODIUM 100 MG CAP PO (22:10)
[2018-11-07 05:54] LABS: ADD MAN DIFF? NO
[2018-11-07 06:03] LABS: WHITE BLOOD COUNT 9.3 10^3/ul (4.8-10.8)
[2018-11-07 06:03] LABS: BASOPHILS % 0.2 % (0.0-2.0); EOSINOPHILS # 0.2 10^3/ul (0.0-0.5); EOSINOPHILS % 1.8 % (0.0-7.0); HEMATOCRIT 30.7 % (42.0-52.0); HEMOGLOBIN 9.8 g/dl (14.0-18.0); LYMPHOCYTES # 1.3 10^3/ul (0.8-2.9); LYMPHOCYTES % 14.3 % (15.0-51.0); MEAN CORPUSCULAR HEMOGLOBIN 27.1 pg (29.0-33.0); MEAN CORPUSCULAR HGB CONC 31.9 g/dl (32.0-37.0); MEAN PLATELET VOLUME 11.2 fl (7.4-10.4); MONOCYTE # 0.8 10^3/ul (0.3-0.9); MONOCYTES % 8.7 % (0.0-11.0); NEUTROPHIL # 6.9 10^3/ul (1.6-7.5); PLATELET COUNT 338 10^3/UL (140-415); RED BLOOD COUNT 3.61 10^6/ul (4.70-6.10); RED CELL DISTRIBUTION WIDTH 15.3 % (11.5-14.5)
[2018-11-07] MEDS: VALPROIC ACID LIQUID CUP 250 MG/5 ML CUP GTB ×3 (06:43→20:39)
[2018-11-07 06:45] LABS: ANION GAP 3 (5-13); BLOOD UREA NITROGEN 21 mg/dl (7-20); CALCIUM 8.5 mg/dl (8.4-10.2); CARBON DIOXIDE 34 mmol/L (21-31); CHLORIDE 103 mmol/L (97-110); CREATININE 0.39 mg/dl (0.61-1.24); Estimated GFR > 60 mL/min (>60); GLUCOSE 171 mg/dl (70-220); POTASSIUM 4.3 mmol/L (3.5-5.1); SODIUM 140 mmol/L (135-144)
[2018-11-07] MEDS: SENNA TAB GTB ×2 (09:28→20:39)
[2018-11-07] MEDS: ASCORBIC ACID 500 MG TAB GTB (09:28)
[2018-11-07] MEDS: LANSOPRAZOLE 30 MG CAP GTB ×2 (09:28→20:39)
[2018-11-07] MEDS: SUCRALFATE (100 MG/ML) 10ML CUP GTB ×4 (09:28→20:39)
[2018-11-07] MEDS: MULTIVITAMINS/MINERALS TAB GTB (09:28)
[2018-11-07] MEDS: ZINC SULFATE 220 MG CAP GTB (09:28)
[2018-11-07] MEDS: hydrOXYzine HCL 25 MG TAB GTB ×2 (09:29→20:39)
[2018-11-07] MEDS: LISINOPRIL 10 MG TAB GTB (09:29)
[2018-11-07] MEDS: CEFEPIME 2GM/50 ML (PMX) 50 ML IVPB ×2 (10:22→20:39)
[2018-11-07] MEDS: VANCOMYCIN HCL 1.25 GM in SOD CHLORIDE 0.9% 250 ML IVPB (11:58)
[2018-11-07] MEDS: MAGNESIUM HYDROXIDE 30ML CUP GTB (12:15)
[2018-11-07] MEDS: FLUOCINONIDE 0.05% 15 GM CR TOP (20:38)
[2018-11-07] MEDS: DOCUSATE SODIUM 100 MG CAP PO (20:39)
[2018-11-07] MEDS: VANCOMYCIN HCL 1.5 GM in SOD CHLORIDE 0.9% 250 ML IVPB (23:13)
[2018-11-08] MEDS: VALPROIC ACID LIQUID CUP 250 MG/5 ML CUP GTB ×3 (05:30→21:54)
[2018-11-08] MEDS: SUCRALFATE (100 MG/ML) 10ML CUP GTB ×4 (09:16→21:56)
[2018-11-08] MEDS: ASCORBIC ACID 500 MG TAB GTB (09:16)
[2018-11-08] MEDS: LISINOPRIL 10 MG TAB GTB (09:16)
[2018-11-08] MEDS: LANSOPRAZOLE 30 MG CAP GTB ×2 (09:16→22:02)
[2018-11-08] MEDS: MULTIVITAMINS/MINERALS TAB GTB (09:16)
[2018-11-08] MEDS: ZINC SULFATE 220 MG CAP GTB (09:16)
[2018-11-08] MEDS: FLUOCINONIDE 0.05% 15 GM CR TOP ×2 (09:17→22:07)
[2018-11-08] MEDS: hydrOXYzine HCL 25 MG TAB GTB ×2 (09:17→22:02)
[2018-11-08] MEDS: CEFEPIME 2GM/50 ML (PMX) 50 ML IVPB ×2 (09:22→22:02)
[2018-11-08] MEDS: SENNA TAB GTB ×2 (09:22→21:57)
[2018-11-08] MEDS: VANCOMYCIN HCL 1.5 GM in SOD CHLORIDE 0.9% 250 ML IVPB (12:08)
[2018-11-08] MEDS: MAGNESIUM HYDROXIDE 30ML CUP GTB (13:37)
[2018-11-08 15:55] LABS: ANION GAP 3 (5-13); BLOOD UREA NITROGEN 19 mg/dl (7-20); CALCIUM 8.7 mg/dl (8.4-10.2); CARBON DIOXIDE 35 mmol/L (21-31); CHLORIDE 102 mmol/L (97-110); CREATININE 0.49 mg/dl (0.61-1.24); Estimated GFR > 60 mL/min (>60); GLUCOSE 176 mg/dl (70-220); MAGNESIUM 2.2 mg/dl (1.7-2.5); POTASSIUM 4.3 mmol/L (3.5-5.1); SODIUM 140 mmol/L (135-144)
[2018-11-08] MEDS: DOCUSATE SODIUM 100 MG CAP PO (21:57)
[2018-11-09] MEDS: VALPROIC ACID LIQUID CUP 250 MG/5 ML CUP GTB ×3 (05:51→20:53)
[2018-11-09] MEDS: SUCRALFATE (100 MG/ML) 10ML CUP GTB ×4 (08:39→20:53)
[2018-11-09] MEDS: LANSOPRAZOLE 30 MG CAP GTB ×2 (08:40→20:53)
[2018-11-09] MEDS: SENNA TAB GTB ×2 (08:40→20:53)
[2018-11-09] MEDS: ASCORBIC ACID 500 MG TAB GTB (08:40)
[2018-11-09] MEDS: LISINOPRIL 10 MG TAB GTB (08:40)
[2018-11-09] MEDS: FLUOCINONIDE 0.05% 15 GM CR TOP ×2 (08:41→20:54)
[2018-11-09] MEDS: hydrOXYzine HCL 25 MG TAB GTB ×2 (08:41→20:53)
[2018-11-09] MEDS: ZINC SULFATE 220 MG CAP GTB (08:41)
[2018-11-09] MEDS: CEFEPIME 2GM/50 ML (PMX) 50 ML IVPB ×2 (08:41→21:08)
[2018-11-09] MEDS: MULTIVITAMINS/MINERALS TAB GTB (08:41)
[2018-11-09] MEDS: MAGNESIUM HYDROXIDE 30ML CUP GTB (11:43)
[2018-11-09] MEDS: ACETAMINOPHEN 325 MG TAB GTB ×2 (13:12→17:52)
[2018-11-09] MEDS: DOCUSATE SODIUM 100 MG CAP PO (20:53)
[2018-11-10] MEDS: VALPROIC ACID LIQUID CUP 250 MG/5 ML CUP GTB ×3 (06:17→20:52)
[2018-11-10] MEDS: LANSOPRAZOLE 30 MG CAP GTB ×2 (08:29→20:53)
[2018-11-10] MEDS: MULTIVITAMINS/MINERALS TAB GTB (08:29)
[2018-11-10] MEDS: ASCORBIC ACID 500 MG TAB GTB (08:29)
[2018-11-10] MEDS: hydrOXYzine HCL 25 MG TAB GTB ×2 (08:29→20:53)
[2018-11-10] MEDS: SUCRALFATE (100 MG/ML) 10ML CUP GTB ×4 (08:29→20:52)
[2018-11-10] MEDS: SENNA TAB GTB ×2 (08:30→20:53)
[2018-11-10] MEDS: FUROSEMIDE 20 MG TAB PO (08:30)
[2018-11-10] MEDS: LISINOPRIL 10 MG TAB GTB (08:30)
[2018-11-10] MEDS: FLUOCINONIDE 0.05% 15 GM CR TOP ×2 (08:34→21:49)
[2018-11-10] MEDS: CEFEPIME 2GM/50 ML (PMX) 50 ML IVPB ×2 (08:46→21:48)
[2018-11-10 12:00] LABS: ADD MAN DIFF? NO
[2018-11-10 12:13] LABS: WHITE BLOOD COUNT 8.6 10^3/ul (4.8-10.8)
[2018-11-10 12:13] LABS: BASOPHIL # 0.1 10^3/ul (0.0-0.1); BASOPHILS % 0.8 % (0.0-2.0); EOSINOPHILS # 0.4 10^3/ul (0.0-0.5); EOSINOPHILS % 4.4 % (0.0-7.0); HEMATOCRIT 32.7 % (42.0-52.0); HEMOGLOBIN 10.3 g/dl (14.0-18.0); LYMPHOCYTES # 1.9 10^3/ul (0.8-2.9); LYMPHOCYTES % 22.1 % (15.0-51.0); MEAN CORPUSCULAR HEMOGLOBIN 27.4 pg (29.0-33.0); MEAN CORPUSCULAR HGB CONC 31.5 g/dl (32.0-37.0); MEAN PLATELET VOLUME 11.6 fl (7.4-10.4); MONOCYTES % 11.4 % (0.0-11.0); NEUTROPHIL # 5.1 10^3/ul (1.6-7.5); NEUTROPHILS % 59.9 % (39.0-77.0); NUCLEATED RED BLOOD CELLS% 0.4 /100WBC (0.0-0.0); PLATELET COUNT 283 10^3/UL (140-415); RED BLOOD COUNT 3.76 10^6/ul (4.70-6.10); RED CELL DISTRIBUTION WIDTH 15.9 % (11.5-14.5)
[2018-11-10 12:27] LABS: ANION GAP 4 (5-13); BLOOD UREA NITROGEN 24 mg/dl (7-20); CALCIUM 8.7 mg/dl (8.4-10.2); CARBON DIOXIDE 37 mmol/L (21-31); CHLORIDE 100 mmol/L (97-110); CREATININE 0.52 mg/dl (0.61-1.24); Estimated GFR > 60 mL/min (>60); GLUCOSE 178 mg/dl (70-220); POTASSIUM 4.2 mmol/L (3.5-5.1); SODIUM 141 mmol/L (135-144)
[2018-11-10] MEDS: MAGNESIUM HYDROXIDE 30ML CUP GTB (13:46)
[2018-11-10] MEDS: ZINC SULFATE 220 MG CAP GTB (13:46)
[2018-11-10] MEDS ORDERED: ALBUTEROL/IPRATROPIUM (NEB) 3 ML AMP HHN (18:00)
[2018-11-10] MEDS: ALBUTEROL/IPRATROPIUM (NEB) 3 ML AMP HHN (19:39)
[2018-11-10] MEDS: DOCUSATE SODIUM 100 MG CAP PO (20:54)
[2018-11-11] MEDS: ALBUTEROL/IPRATROPIUM (NEB) 3 ML AMP HHN ×4 (01:56→20:52)
[2018-11-11 05:49] LABS: ADD MAN DIFF? NO
[2018-11-11 05:54] LABS: WHITE BLOOD COUNT 9.5 10^3/ul (4.8-10.8)
[2018-11-11 05:54] LABS: BASOPHIL # 0.1 10^3/ul (0.0-0.1); BASOPHILS % 0.6 % (0.0-2.0); EOSINOPHILS # 0.4 10^3/ul (0.0-0.5); EOSINOPHILS % 3.7 % (0.0-7.0); HEMATOCRIT 32.6 % (42.0-52.0); HEMOGLOBIN 10.2 g/dl (14.0-18.0); LYMPHOCYTES # 1.9 10^3/ul (0.8-2.9); LYMPHOCYTES % 19.5 % (15.0-51.0); MEAN CORPUSCULAR HEMOGLOBIN 27.5 pg (29.0-33.0); MEAN CORPUSCULAR HGB CONC 31.3 g/dl (32.0-37.0); MEAN CORPUSCULAR VOLUME 87.9 fl (82.0-101.0); MEAN PLATELET VOLUME 11.6 fl (7.4-10.4); MONOCYTE # 0.8 10^3/ul (0.3-0.9); MONOCYTES % 8.5 % (0.0-11.0); NEUTROPHIL # 6.3 10^3/ul (1.6-7.5); NEUTROPHILS % 66.6 % (39.0-77.0); PLATELET COUNT 256 10^3/UL (140-415); RED BLOOD COUNT 3.71 10^6/ul (4.70-6.10); RED CELL DISTRIBUTION WIDTH 15.9 % (11.5-14.5)
[2018-11-11 06:21] LABS: ANION GAP 2 (5-13); BLOOD UREA NITROGEN 28 mg/dl (7-20); CALCIUM 8.8 mg/dl (8.4-10.2); CARBON DIOXIDE 39 mmol/L (21-31); CHLORIDE 98 mmol/L (97-110); CREATININE 0.51 mg/dl (0.61-1.24); Estimated GFR > 60 mL/min (>60); GLUCOSE 192 mg/dl (70-220); POTASSIUM 4.3 mmol/L (3.5-5.1); SODIUM 139 mmol/L (135-144)
[2018-11-11] MEDS: VALPROIC ACID LIQUID CUP 250 MG/5 ML CUP GTB ×3 (06:27→21:14)
[2018-11-11] MEDS: ZINC SULFATE 220 MG CAP GTB (09:38)
[2018-11-11] MEDS: SUCRALFATE (100 MG/ML) 10ML CUP GTB ×4 (09:39→21:14)
[2018-11-11] MEDS: LANSOPRAZOLE 30 MG CAP GTB ×2 (09:39→21:15)
[2018-11-11] MEDS: CEFEPIME 2GM/50 ML (PMX) 50 ML IVPB ×2 (09:39→22:06)
[2018-11-11] MEDS: ASCORBIC ACID 500 MG TAB GTB (09:39)
[2018-11-11] MEDS: SENNA TAB GTB ×2 (09:40→21:15)
[2018-11-11] MEDS: hydrOXYzine HCL 25 MG TAB GTB ×2 (09:40→21:14)
[2018-11-11] MEDS: MULTIVITAMINS/MINERALS TAB GTB (09:40)
[2018-11-11] MEDS: LISINOPRIL 10 MG TAB GTB (09:41)
[2018-11-11] MEDS: FUROSEMIDE 20 MG TAB PO (09:41)
[2018-11-11] MEDS: FLUOCINONIDE 0.05% 15 GM CR TOP ×2 (09:42→22:03)
[2018-11-11] MEDS: COLLAGENASE 5 GM (UD JAR) TOP ×2 (09:45→14:48)
[2018-11-11] MEDS: MAGNESIUM HYDROXIDE 30ML CUP GTB (12:30)
[2018-11-11] MEDS: DOCUSATE SODIUM 100 MG CAP PO (21:14)
[2018-11-12] MEDS: ALBUTEROL/IPRATROPIUM (NEB) 3 ML AMP HHN ×4 (01:00→19:39)
[2018-11-12] MEDS: VALPROIC ACID LIQUID CUP 250 MG/5 ML CUP GTB ×3 (06:15→21:00)
[2018-11-12] MEDS: SUCRALFATE (100 MG/ML) 10ML CUP GTB ×4 (08:20→20:53)
[2018-11-12] MEDS: hydrOXYzine HCL 25 MG TAB GTB ×2 (08:20→20:53)
[2018-11-12] MEDS: LISINOPRIL 10 MG TAB GTB (08:21)
[2018-11-12] MEDS: ZINC SULFATE 220 MG CAP GTB (08:21)
[2018-11-12] MEDS: LANSOPRAZOLE 30 MG CAP GTB ×2 (08:21→20:53)
[2018-11-12] MEDS: SENNA TAB GTB ×2 (08:21→20:52)
[2018-11-12] MEDS: MULTIVITAMINS/MINERALS TAB GTB (08:21)
[2018-11-12] MEDS: ASCORBIC ACID 500 MG TAB GTB (08:21)
[2018-11-12] MEDS: FUROSEMIDE 20 MG TAB PO (08:21)
[2018-11-12] MEDS: FLUOCINONIDE 0.05% 15 GM CR TOP ×2 (08:22→21:38)
[2018-11-12] MEDS: CEFEPIME 2GM/50 ML (PMX) 50 ML IVPB ×2 (10:33→21:08)
[2018-11-12] MEDS: MAGNESIUM HYDROXIDE 30ML CUP GTB (12:28)
[2018-11-12] MEDS: DOCUSATE SODIUM 100 MG CAP PO (20:52)
[2018-11-13] MEDS: ALBUTEROL/IPRATROPIUM (NEB) 3 ML AMP HHN ×4 (00:10→21:58)
[2018-11-13] MEDS: VALPROIC ACID LIQUID CUP 250 MG/5 ML CUP GTB ×3 (06:24→21:14)
[2018-11-13] MEDS: ZINC SULFATE 220 MG CAP GTB (08:36)
[2018-11-13] MEDS: FUROSEMIDE 20 MG TAB PO (08:36)
[2018-11-13] MEDS: SUCRALFATE (100 MG/ML) 10ML CUP GTB ×4 (08:36→21:12)
[2018-11-13] MEDS: COLLAGENASE 5 GM (UD JAR) TOP (08:36)
[2018-11-13] MEDS: MULTIVITAMINS/MINERALS TAB GTB (08:37)
[2018-11-13] MEDS: hydrOXYzine HCL 25 MG TAB GTB ×2 (08:37→21:11)
[2018-11-13] MEDS: LISINOPRIL 10 MG TAB GTB (08:37)
[2018-11-13] MEDS: SENNA TAB GTB ×2 (08:37→21:12)
[2018-11-13] MEDS: ASCORBIC ACID 500 MG TAB GTB (08:37)
[2018-11-13] MEDS: LANSOPRAZOLE 30 MG CAP GTB ×2 (08:38→21:11)
[2018-11-13] MEDS: FLUOCINONIDE 0.05% 15 GM CR TOP ×2 (08:38→21:15)
[2018-11-13] MEDS: MAGNESIUM HYDROXIDE 30ML CUP GTB (12:21)
[2018-11-13] MEDS: DOCUSATE SODIUM 100 MG CAP PO (21:11)
[2018-11-14] MEDS: ALBUTEROL/IPRATROPIUM (NEB) 3 ML AMP HHN ×3 (02:11→13:36)
[2018-11-14] MEDS: VALPROIC ACID LIQUID CUP 250 MG/5 ML CUP GTB ×2 (05:30→13:05)
[2018-11-14] MEDS: SUCRALFATE (100 MG/ML) 10ML CUP GTB ×3 (09:04→17:06)
[2018-11-14] MEDS: ASCORBIC ACID 500 MG TAB GTB (09:04)
[2018-11-14] MEDS: ZINC SULFATE 220 MG CAP GTB (09:04)
[2018-11-14] MEDS: MULTIVITAMINS/MINERALS TAB GTB (09:04)
[2018-11-14] MEDS: SENNA TAB GTB (09:04)
[2018-11-14] MEDS: LANSOPRAZOLE 30 MG CAP GTB (09:04)
[2018-11-14] MEDS: COLLAGENASE 5 GM (UD JAR) TOP (09:04)
[2018-11-14] MEDS: LISINOPRIL 10 MG TAB GTB (09:05)
[2018-11-14] MEDS: FUROSEMIDE 20 MG TAB PO (09:05)
[2018-11-14] MEDS: FLUOCINONIDE 0.05% 15 GM CR TOP (09:06)
[2018-11-14] MEDS: hydrOXYzine HCL 25 MG TAB GTB (09:06)
[2018-11-14] MEDS: MAGNESIUM HYDROXIDE 30ML CUP GTB (13:04)
== END 2018-11-14 18:10 | DRG 871 ==
LOC: E/R 23:37 → 6WM 11-05 00:18
DX: A41.9 Sepsis, unspecified organism (principal); J18.9 Pneumonia, unspecified organism; I50.23 Acute on chronic systolic (congestive) heart failure; N39.0 Urinary tract infection, site not specified; J96.10 Chronic respiratory failure, unspecified whether with hypoxia or hypercapnia; G93.40 Encephalopathy, unspecified; R65.20 Severe sepsis without septic shock; B96.1 Klebsiella pneumoniae [K. pneumoniae] as the cause of diseases classified elsewhere; Z93.0 Tracheostomy status; Z98.2 Presence of cerebrospinal fluid drainage device; E11.9 Type 2 diabetes mellitus without complications; R13.10 Dysphagia, unspecified; E78.5 Hyperlipidemia, unspecified; Z86.73 Personal history of transient ischemic attack (TIA), and cerebral infarction without residual deficits; Z66 Do not resuscitate; I45.10 Unspecified right bundle-branch block; I25.5 Ischemic cardiomyopathy; I11.0 Hypertensive heart disease with heart failure; R21 Rash and other nonspecific skin eruption
CPT/HCPCS: 36415; 70450; 71045; 80048; 80053; 80202; 81001; 83605; 83735; 84484; 85025; 85610; 85730; 87040-91; 87070; 87081; 87086; 93005; 94640; 94664; 96374; 99285-25

== ENCOUNTER 2018-12-11 08:55 | Inpatient (IN) | payer MEDICARE, MEDICAID ==
[2018-12-11 09:32] LABS: ADD MAN DIFF? NO
[2018-12-11 09:34] LABS: BASOPHILS % 0.3 % (0.0-2.0); EOSINOPHILS # 0.3 10^3/ul (0.0-0.5); HEMATOCRIT 30.2 % (42.0-52.0); HEMOGLOBIN 9.2 g/dl (14.0-18.0); LYMPHOCYTES % 9.6 % (15.0-51.0); MEAN CORPUSCULAR HEMOGLOBIN 26.7 pg (29.0-33.0); MEAN CORPUSCULAR HGB CONC 30.5 g/dl (32.0-37.0); MEAN CORPUSCULAR VOLUME 87.5 fl (82.0-101.0); MONOCYTE # 1.1 10^3/ul (0.3-0.9); MONOCYTES % 10.1 % (0.0-11.0); NEUTROPHIL # 8.1 10^3/ul (1.6-7.5); NEUTROPHILS % 76.4 % (39.0-77.0); PLATELET COUNT 300 10^3/UL (140-415); RED BLOOD COUNT 3.45 10^6/ul (4.70-6.10); RED CELL DISTRIBUTION WIDTH 14.9 % (11.5-14.5)
[2018-12-11 09:34] LABS: WHITE BLOOD COUNT 10.5 10^3/ul (4.8-10.8)
[2018-12-11 09:51] LABS: ALANINE AMINOTRANSFERASE 7 IU/L (13-69); ALBUMIN/GLOBULIN RATIO 0.71; ALKALINE PHOSPHATASE 157 IU/L (42-121); ANION GAP 2 (5-13); ASPARTATE AMINO TRANSFERASE 19 IU/L (15-46); BILIRUBIN,INDIRECT 0.2 mg/dl (0-1.1); BILIRUBIN,TOTAL 0.2 mg/dl (0.2-1.3); BLOOD UREA NITROGEN 28 mg/dl (7-20); CALCIUM 8.6 mg/dl (8.4-10.2); CARBON DIOXIDE 39 mmol/L (21-31); CHLORIDE 90 mmol/L (97-110); CREATININE 0.51 mg/dl (0.61-1.24); Estimated GFR > 60 mL/min (>60); GLUCOSE 182 mg/dl (70-220); POTASSIUM 4.6 mmol/L (3.5-5.1); SODIUM 131 mmol/L (135-144); TOTAL PROTEIN 7.2 g/dl (6.1-8.1)
[2018-12-11 09:54] LABS: INR 1.07; PT RATIO 1.1
[2018-12-11 09:55] LABS: PARTIAL THROMBOPLASTIN TIME 32.1 Sec (23.0-35.0)
[2018-12-11 10:03] LABS: TROPONIN-I < 0.012 ng/ml (0.000-0.120)
[2018-12-11 10:06] LABS: ADD UMIC YES; UR ASCORBIC ACID 40 mg/dL (NEGATIVE); UR BILIRUBIN (Dip) NEGATIVE (NEGATIVE); UR BLOOD (Dip) 1+ mg/dL (NEGATIVE); UR BUDDING YEAST MODERATE /HPF (NONE SEEN); UR CLARITY SLIGHTLY CLOUDY (CLEAR); UR COLOR AMBER (YELLOW); UR GLUCOSE (Dip) NEGATIVE (NEGATIVE); UR HYALINE CAST FEW /HPF (NONE SEEN); UR KETONES (Dip) NEGATIVE (NEGATIVE); UR LEUKOCYTE ESTERASE (Dip) 1+ Leu/ul (NEGATIVE); UR NITRITE (Dip) NEGATIVE (NEGATIVE); UR RBC 48 /HPF (0-5); UR SPECIFIC GRAVITY (Dip) 1.016 (1.003-1.030); UR TOTAL PROTEIN (Dip) 2+ mg/dl (NEGATIVE); UR UROBILINOGEN (Dip) NEGATIVE (NEGATIVE); UR WBC 24 /HPF (0-5)
[2018-12-11] MEDS: CEFEPIME 2GM/50 ML (PMX) 50 ML IVPB (10:07)
[2018-12-11] MEDS: SODIUM CHLORIDE 0.9% 1L BAG IV* (10:08)
[2018-12-11] MEDS: ACETAMINOPHEN 650MG/20.3ML CUP NGT (10:13)
[2018-12-11] MEDS: VANCOMYCIN 1 GM (PMX) 250 ML IVPB (10:39)
[2018-12-11 11:09] LABS: AADO2 Arterial 121.2 mmHg (7.0-24.0); Allen Test ACCEPTAB; Arterial Base Excess 6.1 mmol/L (-3.0-3); Arterial Blood Gas Oxygen Sat 98.1 mmHG (95.0-98.0); Arterial COHb 0.3 % (0.0-3.0); Arterial Fraction of Oxyhgb 97.3 % (93.0-99.0); Arterial HCO3 31.1 mmol/L (22.0-26.0); Arterial MetHb 0.5 % (0.0-1.5); Arterial pCO2 47.5 mmhg (35-45); MODE TRACH COLLAR; Site Left Radial
[2018-12-11] MEDS: SOD CHLORIDE 0.9% 1,000 ML IV ×3 (11:53→23:11)
[2018-12-11] MEDS ORDERED: ACETAMINOPHEN 325 MG TAB PO (12:00)
[2018-12-11] MEDS ORDERED: ONDANSETRON 4 MG INJ IV ×2 (12:00→13:00)
[2018-12-11] MEDS ORDERED: NACL 0.9% 3 ML SYG IV (13:00)
[2018-12-11] MEDS ORDERED: CEFEPIME 1GM/50 ML (PMX) 50 ML IVPB (14:00)
[2018-12-11 15:09] LABS: LACTIC ACID 1.5 mmol/L (0.5-2.0)
[2018-12-11] MEDS: ADENOSINE 6 MG INJ IV ×3 (16:01→21:38)
[2018-12-11 18:55] LABS: LACTIC ACID 2.1 mmol/L (0.5-2.0)
[2018-12-11] MEDS ORDERED: IPRATROPIUM (NEB) 0.5 MG/2.5 ML AMP HHN (20:00)
[2018-12-11] MEDS: morphine 2 MG INJ IV (20:01)
[2018-12-11] MEDS: DILTIAZEM-D5W 125MG/125ML DRIP 125 ML IV (20:11)
[2018-12-11] MEDS: FAMOTIDINE 20 MG INJ IV (21:28)
[2018-12-11] MEDS: CEFEPIME 1GM/50 ML (PMX) 50 ML IVPB (21:29)
[2018-12-11 22:46] LABS: AADO2 Arterial 78.2 mmHg (7.0-24.0); Allen Test ACCEPTAB; Arterial Base Excess 5.4 mmol/L (-3.0-3); Arterial Blood Gas Oxygen Sat 93.9 mmHG (95.0-98.0); Arterial COHb 0 % (0.0-3.0); Arterial Fraction of Oxyhgb 93.6 % (93.0-99.0); Arterial MetHb 0.3 % (0.0-1.5); Arterial pCO2 44.1 mmhg (35-45); MODE TRACH COLLAR; Site Left Radial
[2018-12-12] MEDS ORDERED: IPRATROPIUM (NEB) 0.5 MG/2.5 ML AMP HHN (01:30)
[2018-12-12] MEDS: DILTIAZEM-D5W 125MG/125ML DRIP 125 ML IV (04:16)
[2018-12-12 05:26] LABS: ADD MAN DIFF? NO
[2018-12-12 05:33] LABS: WHITE BLOOD COUNT 10.1 10^3/ul (4.8-10.8)
[2018-12-12 05:33] LABS: BASOPHILS % 0.3 % (0.0-2.0); EOSINOPHILS # 0.3 10^3/ul (0.0-0.5); EOSINOPHILS % 2.7 % (0.0-7.0); HEMATOCRIT 30.8 % (42.0-52.0); HEMOGLOBIN 9.4 g/dl (14.0-18.0); LYMPHOCYTES % 9.4 % (15.0-51.0); MEAN CORPUSCULAR HEMOGLOBIN 26.5 pg (29.0-33.0); MEAN CORPUSCULAR HGB CONC 30.5 g/dl (32.0-37.0); MEAN CORPUSCULAR VOLUME 86.8 fl (82.0-101.0); MONOCYTE # 1.1 10^3/ul (0.3-0.9); MONOCYTES % 10.6 % (0.0-11.0); NEUTROPHIL # 7.7 10^3/ul (1.6-7.5); NEUTROPHILS % 76.4 % (39.0-77.0); PLATELET COUNT 313 10^3/UL (140-415); RED BLOOD COUNT 3.55 10^6/ul (4.70-6.10)
[2018-12-12] MEDS: CEFEPIME 1GM/50 ML (PMX) 50 ML IVPB ×3 (05:40→21:26)
[2018-12-12 05:48] LABS: HEMOGLOBIN A1C 6.7 % (0-5.9)
[2018-12-12 06:05] LABS: ALANINE AMINOTRANSFERASE 13 IU/L (13-69); ALBUMIN 2.8 g/dl (3.3-4.9); ALKALINE PHOSPHATASE 92 IU/L (42-121); ANION GAP 3 (5-13); ASPARTATE AMINO TRANSFERASE 19 IU/L (15-46); BILIRUBIN,INDIRECT 0.3 mg/dl (0-1.1); BILIRUBIN,TOTAL 0.3 mg/dl (0.2-1.3); BLOOD UREA NITROGEN 20 mg/dl (7-20); CALCIUM 8.5 mg/dl (8.4-10.2); CARBON DIOXIDE 35 mmol/L (21-31); CHLORIDE 97 mmol/L (97-110); CREATININE 0.43 mg/dl (0.61-1.24); Estimated GFR > 60 mL/min (>60); GLUCOSE 144 mg/dl (70-220); POTASSIUM 4.5 mmol/L (3.5-5.1); SODIUM 135 mmol/L (135-144); TOTAL PROTEIN 6.8 g/dl (6.1-8.1)
[2018-12-12] MEDS: FAMOTIDINE 20 MG INJ IV ×2 (08:24→21:26)
[2018-12-12] MEDS: ENOXAPARIN 30 MG/0.3 ML SYG SC (08:25)
[2018-12-12] MEDS: DIGOXIN 500 MCG INJ IV ×2 (10:54→16:24)
[2018-12-12] MEDS ORDERED: GLUCOSE GEL 15 GRAM TUBE PO ×2 (12:30)
[2018-12-12] MEDS ORDERED: DEXTROSE 50% 50 ML SYRINGE IV ×2 (12:30)
[2018-12-12] MEDS ORDERED: GLUCOSE GEL 15 GRAM TUBE BUCCAL (12:30)
[2018-12-12] MEDS ORDERED: GLUCAGON 1 MG INJ IM (12:30)
[2018-12-12] MEDS: VALPROIC ACID LIQUID CUP 250 MG/5 ML CUP GTB ×2 (13:53→21:26)
[2018-12-12] MEDS: SOD CHLORIDE 0.9% 1,000 ML IV (13:54)
[2018-12-12 14:05] LABS: TROPONIN-I < 0.012 ng/ml (0.000-0.120)
[2018-12-12] MEDS: INSULIN ASPART [NOVOLOG] 3 ML PEN SC (17:30)
[2018-12-12 20:12] LABS: TROPONIN-I < 0.012 ng/ml (0.000-0.120)
[2018-12-12 20:52] LABS: AADO2 Arterial 82.9 mmHg (7.0-24.0); Allen Test ACCEPTAB; Arterial Base Excess 5.6 mmol/L (-3.0-3); Arterial Blood Gas Oxygen Sat 96.9 mmHG (95.0-98.0); Arterial COHb 0.3 % (0.0-3.0); Arterial Fraction of Oxyhgb 96.3 % (93.0-99.0); Arterial HCO3 29.1 mmol/L (22.0-26.0); Arterial MetHb 0.3 % (0.0-1.5); Arterial pCO2 38.1 mmhg (35-45); MODE VENT - AC; Site Right Radial
[2018-12-13] MEDS: INSULIN ASPART [NOVOLOG] 3 ML PEN SC ×5 (00:15→23:55)
[2018-12-13 02:02] LABS: TROPONIN-I < 0.012 ng/ml (0.000-0.120)
[2018-12-13] MEDS: METOPROLOL 5 MG INJ IV (02:15)
[2018-12-13] MEDS: SOD CHLORIDE 0.9% 1,000 ML IV (02:55)
[2018-12-13] MEDS: VALPROIC ACID LIQUID CUP 250 MG/5 ML CUP GTB ×3 (05:42→21:04)
[2018-12-13] MEDS: CEFEPIME 1GM/50 ML (PMX) 50 ML IVPB ×3 (05:43→21:04)
[2018-12-13 07:23] LABS: ADD MAN DIFF? NO
[2018-12-13 07:29] LABS: BASOPHILS % 0.6 % (0.0-2.0); EOSINOPHILS # 0.4 10^3/ul (0.0-0.5); EOSINOPHILS % 5.8 % (0.0-7.0); HEMATOCRIT 25.8 % (42.0-52.0); LYMPHOCYTES % 15.1 % (15.0-51.0); MEAN CORPUSCULAR HEMOGLOBIN 26.3 pg (29.0-33.0); MEAN CORPUSCULAR VOLUME 84.9 fl (82.0-101.0); MEAN PLATELET VOLUME 10.8 fl (7.4-10.4); MONOCYTE # 0.8 10^3/ul (0.3-0.9); MONOCYTES % 11.3 % (0.0-11.0); NEUTROPHIL # 4.6 10^3/ul (1.6-7.5); NEUTROPHILS % 66.5 % (39.0-77.0); PLATELET COUNT 308 10^3/UL (140-415); RED BLOOD COUNT 3.04 10^6/ul (4.70-6.10); RED CELL DISTRIBUTION WIDTH 14.9 % (11.5-14.5)
[2018-12-13 07:29] LABS: WHITE BLOOD COUNT 6.9 10^3/ul (4.8-10.8)
[2018-12-13 07:58] LABS: ANION GAP 1 (5-13); BLOOD UREA NITROGEN 17 mg/dl (7-20); CARBON DIOXIDE 34 mmol/L (21-31); CHLORIDE 99 mmol/L (97-110); CREATININE 0.42 mg/dl (0.61-1.24); Estimated GFR > 60 mL/min (>60); GLUCOSE 155 mg/dl (70-220); POTASSIUM 4.1 mmol/L (3.5-5.1); SODIUM 134 mmol/L (135-144)
[2018-12-13] MEDS: FAMOTIDINE 20 MG INJ IV ×2 (09:28→21:04)
[2018-12-13] MEDS: ENOXAPARIN 30 MG/0.3 ML SYG SC (09:41)
[2018-12-13] MEDS: COLLAGENASE 5 GM (UD JAR) TOP (14:59)
[2018-12-13] MEDS: MUPIROCIN 2% 22 GM OINT TOP (14:59)
[2018-12-13] MEDS ORDERED: DIPHENHYDRAMINE 50 MG INJ IM (19:00)
[2018-12-13] MEDS ORDERED: BALSAM PERU/CASTOR OIL 60 GM TUBE TOP (20:00)
[2018-12-14] MEDS: CEFEPIME 1GM/50 ML (PMX) 50 ML IVPB ×3 (05:38→21:22)
[2018-12-14] MEDS: BALSAM PERU/CASTOR OIL 60 GM TUBE TOP ×3 (05:38→20:21)
[2018-12-14] MEDS: VALPROIC ACID LIQUID CUP 250 MG/5 ML CUP GTB ×3 (05:39→21:22)
[2018-12-14] MEDS: INSULIN ASPART [NOVOLOG] 3 ML PEN SC ×4 (06:00→23:22)
[2018-12-14] MEDS: FAMOTIDINE 20 MG INJ IV ×2 (08:55→20:21)
[2018-12-14] MEDS: COLLAGENASE 5 GM (UD JAR) TOP (09:00)
[2018-12-14] MEDS: ENOXAPARIN 30 MG/0.3 ML SYG SC (09:18)
[2018-12-14 09:37] LABS: ADD MAN DIFF? NO
[2018-12-14 09:39] LABS: BASOPHILS % 0.3 % (0.0-2.0); EOSINOPHILS # 0.7 10^3/ul (0.0-0.5); EOSINOPHILS % 9.6 % (0.0-7.0); HEMATOCRIT 26.2 % (42.0-52.0); HEMOGLOBIN 7.9 g/dl (14.0-18.0); LYMPHOCYTES # 1.1 10^3/ul (0.8-2.9); LYMPHOCYTES % 16.3 % (15.0-51.0); MEAN CORPUSCULAR HEMOGLOBIN 26.1 pg (29.0-33.0); MEAN CORPUSCULAR HGB CONC 30.2 g/dl (32.0-37.0); MEAN CORPUSCULAR VOLUME 86.5 fl (82.0-101.0); MEAN PLATELET VOLUME 10.6 fl (7.4-10.4); MONOCYTE # 0.8 10^3/ul (0.3-0.9); MONOCYTES % 11.3 % (0.0-11.0); NEUTROPHIL # 4.2 10^3/ul (1.6-7.5); NEUTROPHILS % 62.1 % (39.0-77.0); PLATELET COUNT 328 10^3/UL (140-415); RED BLOOD COUNT 3.03 10^6/ul (4.70-6.10); RED CELL DISTRIBUTION WIDTH 15.2 % (11.5-14.5)
[2018-12-14 09:39] LABS: WHITE BLOOD COUNT 6.8 10^3/ul (4.8-10.8)
[2018-12-14 10:07] LABS: ANION GAP 2 (5-13); BLOOD UREA NITROGEN 17 mg/dl (7-20); CALCIUM 7.9 mg/dl (8.4-10.2); CARBON DIOXIDE 34 mmol/L (21-31); CHLORIDE 100 mmol/L (97-110); CREATININE 0.35 mg/dl (0.61-1.24); Estimated GFR > 60 mL/min (>60); GLUCOSE 143 mg/dl (70-220); POTASSIUM 4.2 mmol/L (3.5-5.1); SODIUM 136 mmol/L (135-144)
[2018-12-14] MEDS: SOD CHLORIDE 0.9% 1,000 ML IV (10:33)
[2018-12-14] MEDS: MUPIROCIN 2% 22 GM OINT TOP (10:35)
[2018-12-14] MEDS ORDERED: VANCOMYCIN IV PER PHARMACY XX (12:30)
[2018-12-14 15:41] LABS: ADD UMIC YES; UR ASCORBIC ACID 40 mg/dL (NEGATIVE); UR BILIRUBIN (Dip) NEGATIVE (NEGATIVE); UR BLOOD (Dip) NEGATIVE (NEGATIVE); UR CLARITY CLEAR (CLEAR); UR COLOR YELLOW (YELLOW); UR GLUCOSE (Dip) 1+ mg/dL (NEGATIVE); UR KETONES (Dip) TRACE mg/dL (NEGATIVE); UR LEUKOCYTE ESTERASE (Dip) NEGATIVE Leu/ul (NEGATIVE); UR NITRITE (Dip) NEGATIVE (NEGATIVE); UR RBC 36 /HPF (0-5); UR SPECIFIC GRAVITY (Dip) 1.018 (1.003-1.030); UR TOTAL PROTEIN (Dip) 1+ mg/dl (NEGATIVE); UR UROBILINOGEN (Dip) 2+ mg/dL (NEGATIVE); UR WBC 2 /HPF (0-5)
[2018-12-14] MEDS: VANCOMYCIN HCL 2 GM in SOD CHLORIDE 0.9% 500 ML IVPB (16:11)
[2018-12-15] MEDS: VANCOMYCIN 1.25 GM/NS 250 ML 250 ML IVPB ×2 (02:33→14:13)
[2018-12-15] MEDS: ACETAMINOPHEN 325 MG TAB PO (04:35)
[2018-12-15] MEDS: CEFEPIME 1GM/50 ML (PMX) 50 ML IVPB ×3 (05:22→22:49)
[2018-12-15] MEDS: VALPROIC ACID LIQUID CUP 250 MG/5 ML CUP GTB ×3 (05:22→22:49)
[2018-12-15] MEDS: INSULIN ASPART [NOVOLOG] 3 ML PEN SC ×3 (05:30→18:00)
[2018-12-15] MEDS: FAMOTIDINE 20 MG INJ IV ×2 (08:35→22:47)
[2018-12-15] MEDS: BALSAM PERU/CASTOR OIL 60 GM TUBE TOP ×2 (08:36→22:48)
[2018-12-15] MEDS: MUPIROCIN 2% 22 GM OINT TOP (08:36)
[2018-12-15] MEDS: ENOXAPARIN 30 MG/0.3 ML SYG SC (08:48)
[2018-12-15 08:59] LABS: ADD MAN DIFF? NO
[2018-12-15 09:12] LABS: BASOPHILS % 0.3 % (0.0-2.0); EOSINOPHILS # 0.7 10^3/ul (0.0-0.5); EOSINOPHILS % 9.2 % (0.0-7.0); HEMATOCRIT 24.3 % (42.0-52.0); HEMOGLOBIN 7.4 g/dl (14.0-18.0); LYMPHOCYTES % 13.7 % (15.0-51.0); MEAN CORPUSCULAR HEMOGLOBIN 26.4 pg (29.0-33.0); MEAN CORPUSCULAR HGB CONC 30.5 g/dl (32.0-37.0); MEAN CORPUSCULAR VOLUME 86.8 fl (82.0-101.0); MEAN PLATELET VOLUME 10.7 fl (7.4-10.4); MONOCYTE # 0.8 10^3/ul (0.3-0.9); MONOCYTES % 10.3 % (0.0-11.0); NEUTROPHIL # 4.8 10^3/ul (1.6-7.5); NEUTROPHILS % 66.1 % (39.0-77.0); PLATELET COUNT 327 10^3/UL (140-415); RED CELL DISTRIBUTION WIDTH 15.1 % (11.5-14.5)
[2018-12-15 09:12] LABS: WHITE BLOOD COUNT 7.3 10^3/ul (4.8-10.8)
[2018-12-15 09:56] LABS: ANION GAP 3 (5-13); BLOOD UREA NITROGEN 15 mg/dl (7-20); CARBON DIOXIDE 32 mmol/L (21-31); CHLORIDE 100 mmol/L (97-110); CREATININE 0.37 mg/dl (0.61-1.24); Estimated GFR > 60 mL/min (>60); GLUCOSE 137 mg/dl (70-220); POTASSIUM 4.2 mmol/L (3.5-5.1); SODIUM 135 mmol/L (135-144)
[2018-12-15] MEDS: COLLAGENASE 5 GM (UD JAR) TOP (16:13)
[2018-12-16 02:46] LABS: VANCOMYCIN,TROUGH 12.5 ug/ml (10.0-20.0)
[2018-12-16] MEDS: VANCOMYCIN 1.25 GM/NS 250 ML 250 ML IVPB ×2 (04:44→16:17)
[2018-12-16] MEDS: CEFEPIME 1GM/50 ML (PMX) 50 ML IVPB ×3 (05:36→22:05)
[2018-12-16] MEDS: VALPROIC ACID LIQUID CUP 250 MG/5 ML CUP GTB ×3 (05:36→22:04)
[2018-12-16] MEDS: INSULIN ASPART [NOVOLOG] 3 ML PEN SC ×4 (05:37→18:00)
[2018-12-16 09:16] LABS: ADD MAN DIFF? NO
[2018-12-16 09:28] LABS: WHITE BLOOD COUNT 8.6 10^3/ul (4.8-10.8)
[2018-12-16 09:28] LABS: BASOPHILS % 0.2 % (0.0-2.0); EOSINOPHILS # 0.7 10^3/ul (0.0-0.5); EOSINOPHILS % 8.1 % (0.0-7.0); HEMATOCRIT 28.7 % (42.0-52.0); HEMOGLOBIN 8.8 g/dl (14.0-18.0); LYMPHOCYTES % 11.3 % (15.0-51.0); MEAN CORPUSCULAR HEMOGLOBIN 26.9 pg (29.0-33.0); MEAN CORPUSCULAR HGB CONC 30.7 g/dl (32.0-37.0); MEAN CORPUSCULAR VOLUME 87.8 fl (82.0-101.0); MEAN PLATELET VOLUME 10.4 fl (7.4-10.4); MONOCYTE # 0.8 10^3/ul (0.3-0.9); NEUTROPHIL # 6.1 10^3/ul (1.6-7.5); NEUTROPHILS % 70.6 % (39.0-77.0); PLATELET COUNT 379 10^3/UL (140-415); RED BLOOD COUNT 3.27 10^6/ul (4.70-6.10); RED CELL DISTRIBUTION WIDTH 15.4 % (11.5-14.5)
[2018-12-16 09:43] LABS: ANION GAP 2 (5-13); BLOOD UREA NITROGEN 14 mg/dl (7-20); CALCIUM 8.3 mg/dl (8.4-10.2); CARBON DIOXIDE 36 mmol/L (21-31); CHLORIDE 98 mmol/L (97-110); CREATININE 0.38 mg/dl (0.61-1.24); Estimated GFR > 60 mL/min (>60); GLUCOSE 142 mg/dl (70-220); POTASSIUM 4.4 mmol/L (3.5-5.1); SODIUM 136 mmol/L (135-144)
[2018-12-16] MEDS: FUROSEMIDE 20 MG TAB GTB (10:53)
[2018-12-16] MEDS: COLLAGENASE 5 GM (UD JAR) TOP (10:53)
[2018-12-16] MEDS: LISINOPRIL 10 MG TAB GTB (10:53)
[2018-12-16] MEDS: BALSAM PERU/CASTOR OIL 60 GM TUBE TOP ×2 (10:54→21:55)
[2018-12-16] MEDS: MUPIROCIN 2% 22 GM OINT TOP (10:54)
[2018-12-16] MEDS: ENOXAPARIN 30 MG/0.3 ML SYG SC (11:01)
[2018-12-16] MEDS: FAMOTIDINE 20 MG INJ IV (11:14)
[2018-12-16 16:21] LABS: ADD UMIC NO; UR ASCORBIC ACID 40 mg/dL (NEGATIVE); UR BILIRUBIN (Dip) NEGATIVE (NEGATIVE); UR BLOOD (Dip) NEGATIVE (NEGATIVE); UR CLARITY CLEAR (CLEAR); UR COLOR YELLOW (YELLOW); UR GLUCOSE (Dip) NEGATIVE (NEGATIVE); UR KETONES (Dip) NEGATIVE (NEGATIVE); UR LEUKOCYTE ESTERASE (Dip) NEGATIVE Leu/ul (NEGATIVE); UR NITRITE (Dip) NEGATIVE (NEGATIVE); UR SPECIFIC GRAVITY (Dip) 1.012 (1.003-1.030); UR TOTAL PROTEIN (Dip) NEGATIVE (NEGATIVE); UR UROBILINOGEN (Dip) 2+ mg/dL (NEGATIVE)
[2018-12-16] MEDS: FAMOTIDINE 20 MG TAB GTB (21:54)
[2018-12-17] MEDS: VANCOMYCIN 1.25 GM/NS 250 ML 250 ML IVPB ×2 (05:41→14:51)
[2018-12-17] MEDS: VALPROIC ACID LIQUID CUP 250 MG/5 ML CUP GTB ×3 (05:42→22:18)
[2018-12-17] MEDS: INSULIN ASPART [NOVOLOG] 3 ML PEN SC ×5 (05:42→23:49)
[2018-12-17] MEDS: CEFEPIME 1GM/50 ML (PMX) 50 ML IVPB ×3 (05:42→22:22)
[2018-12-17] MEDS: COLLAGENASE 5 GM (UD JAR) TOP (09:00)
[2018-12-17] MEDS: FAMOTIDINE 20 MG TAB GTB ×2 (09:00→20:41)
[2018-12-17] MEDS: FUROSEMIDE 20 MG TAB GTB (09:00)
[2018-12-17] MEDS: MUPIROCIN 2% 22 GM OINT TOP (09:01)
[2018-12-17] MEDS: BALSAM PERU/CASTOR OIL 60 GM TUBE TOP ×2 (09:01→20:42)
[2018-12-17] MEDS: LISINOPRIL 10 MG TAB GTB (09:01)
[2018-12-17] MEDS: ENOXAPARIN 30 MG/0.3 ML SYG SC (09:07)
[2018-12-17 09:13] LABS: ADD MAN DIFF? NO
[2018-12-17 09:14] LABS: WHITE BLOOD COUNT 7.3 10^3/ul (4.8-10.8)
[2018-12-17 09:14] LABS: BASOPHILS % 0.3 % (0.0-2.0); EOSINOPHILS # 0.9 10^3/ul (0.0-0.5); EOSINOPHILS % 12.8 % (0.0-7.0); HEMATOCRIT 25.9 % (42.0-52.0); LYMPHOCYTES # 1.2 10^3/ul (0.8-2.9); LYMPHOCYTES % 16.1 % (15.0-51.0); MEAN CORPUSCULAR HEMOGLOBIN 26.7 pg (29.0-33.0); MEAN CORPUSCULAR HGB CONC 30.9 g/dl (32.0-37.0); MEAN CORPUSCULAR VOLUME 86.3 fl (82.0-101.0); MEAN PLATELET VOLUME 10.2 fl (7.4-10.4); MONOCYTE # 0.8 10^3/ul (0.3-0.9); MONOCYTES % 10.7 % (0.0-11.0); NEUTROPHIL # 4.3 10^3/ul (1.6-7.5); NEUTROPHILS % 59.4 % (39.0-77.0); PLATELET COUNT 342 10^3/UL (140-415); RED CELL DISTRIBUTION WIDTH 15.5 % (11.5-14.5)
[2018-12-17 09:51] LABS: ANION GAP 2 (5-13); BLOOD UREA NITROGEN 13 mg/dl (7-20); CALCIUM 8.3 mg/dl (8.4-10.2); CARBON DIOXIDE 35 mmol/L (21-31); CHLORIDE 97 mmol/L (97-110); CREATININE 0.38 mg/dl (0.61-1.24); Estimated GFR > 60 mL/min (>60); GLUCOSE 127 mg/dl (70-220); POTASSIUM 4.4 mmol/L (3.5-5.1); SODIUM 134 mmol/L (135-144)
[2018-12-17] MEDS: ACETAMINOPHEN 325 MG TAB PO (15:34)
[2018-12-18] MEDS: CEFEPIME 1GM/50 ML (PMX) 50 ML IVPB ×3 (06:36→21:01)
[2018-12-18] MEDS: VALPROIC ACID LIQUID CUP 250 MG/5 ML CUP GTB ×3 (06:36→21:01)
[2018-12-18] MEDS: INSULIN ASPART [NOVOLOG] 3 ML PEN SC ×4 (07:04→23:37)
[2018-12-18 07:42] LABS: ANION GAP 2 (5-13); BLOOD UREA NITROGEN 15 mg/dl (7-20); CALCIUM 8.3 mg/dl (8.4-10.2); CARBON DIOXIDE 35 mmol/L (21-31); CHLORIDE 96 mmol/L (97-110); CREATININE 0.36 mg/dl (0.61-1.24); Estimated GFR > 60 mL/min (>60); GLUCOSE 168 mg/dl (70-220); POTASSIUM 4.3 mmol/L (3.5-5.1); SODIUM 133 mmol/L (135-144)
[2018-12-18] MEDS: FUROSEMIDE 20 MG TAB GTB (08:55)
[2018-12-18] MEDS: FAMOTIDINE 20 MG TAB GTB ×2 (08:55→21:00)
[2018-12-18] MEDS: COLLAGENASE 5 GM (UD JAR) TOP (08:56)
[2018-12-18] MEDS: LISINOPRIL 10 MG TAB GTB (08:56)
[2018-12-18] MEDS: BALSAM PERU/CASTOR OIL 60 GM TUBE TOP ×2 (08:56→21:01)
[2018-12-18] MEDS: MUPIROCIN 2% 22 GM OINT TOP (09:06)
[2018-12-18] MEDS: ENOXAPARIN 30 MG/0.3 ML SYG SC (09:06)
[2018-12-18] MEDS: DIGOXIN 500 MCG INJ IV (12:15)
[2018-12-18 12:33] LABS: PROCALCITONIN 0.08 ng/mL (0.00-0.10)
[2018-12-18] MEDS: ACETAMINOPHEN 325 MG TAB PO (20:50)
[2018-12-18] MEDS: ALBUTEROL/IPRATROPIUM (NEB) 3 ML AMP HHN (21:05)
[2018-12-19 02:15] LABS: PROCALCITONIN 0.07 ng/mL (0.00-0.10)
[2018-12-19] MEDS: VALPROIC ACID LIQUID CUP 250 MG/5 ML CUP GTB ×3 (05:38→21:07)
[2018-12-19] MEDS: CEFEPIME 1GM/50 ML (PMX) 50 ML IVPB (05:38)
[2018-12-19] MEDS: INSULIN ASPART [NOVOLOG] 3 ML PEN SC ×3 (06:06→18:00)
[2018-12-19 08:28] LABS: ANION GAP 4 (5-13); BLOOD UREA NITROGEN 16 mg/dl (7-20); CALCIUM 8.6 mg/dl (8.4-10.2); CARBON DIOXIDE 34 mmol/L (21-31); CHLORIDE 95 mmol/L (97-110); CREATININE 0.39 mg/dl (0.61-1.24); Estimated GFR > 60 mL/min (>60); GLUCOSE 155 mg/dl (70-220); POTASSIUM 4.3 mmol/L (3.5-5.1); SODIUM 133 mmol/L (135-144)
[2018-12-19] MEDS: COLLAGENASE 5 GM (UD JAR) TOP (09:07)
[2018-12-19] MEDS: LISINOPRIL 10 MG TAB GTB (09:07)
[2018-12-19] MEDS: FAMOTIDINE 20 MG TAB GTB ×2 (09:07→21:07)
[2018-12-19] MEDS: FUROSEMIDE 20 MG TAB GTB (09:08)
[2018-12-19] MEDS: MUPIROCIN 2% 22 GM OINT TOP (09:08)
[2018-12-19] MEDS: BALSAM PERU/CASTOR OIL 60 GM TUBE TOP ×2 (09:08→21:08)
[2018-12-19] MEDS: ENOXAPARIN 30 MG/0.3 ML SYG SC (09:24)
[2018-12-20] MEDS: INSULIN ASPART [NOVOLOG] 3 ML PEN SC ×5 (06:00→23:15)
[2018-12-20] MEDS: VALPROIC ACID LIQUID CUP 250 MG/5 ML CUP GTB ×3 (06:00→21:00)
[2018-12-20 07:03] LABS: ADD MAN DIFF? NO
[2018-12-20 07:06] LABS: BASOPHILS % 0.4 % (0.0-2.0); EOSINOPHILS # 0.9 10^3/ul (0.0-0.5); EOSINOPHILS % 10.5 % (0.0-7.0); HEMATOCRIT 25.9 % (42.0-52.0); HEMOGLOBIN 7.9 g/dl (14.0-18.0); LYMPHOCYTES # 1.3 10^3/ul (0.8-2.9); LYMPHOCYTES % 15.1 % (15.0-51.0); MEAN CORPUSCULAR HEMOGLOBIN 26.4 pg (29.0-33.0); MEAN CORPUSCULAR HGB CONC 30.5 g/dl (32.0-37.0); MEAN CORPUSCULAR VOLUME 86.6 fl (82.0-101.0); MEAN PLATELET VOLUME 10.2 fl (7.4-10.4); MONOCYTE # 0.9 10^3/ul (0.3-0.9); MONOCYTES % 11.2 % (0.0-11.0); NEUTROPHIL # 5.2 10^3/ul (1.6-7.5); NEUTROPHILS % 61.8 % (39.0-77.0); PLATELET COUNT 367 10^3/UL (140-415); RED BLOOD COUNT 2.99 10^6/ul (4.70-6.10); RED CELL DISTRIBUTION WIDTH 15.3 % (11.5-14.5)
[2018-12-20 07:06] LABS: WHITE BLOOD COUNT 8.3 10^3/ul (4.8-10.8)
[2018-12-20 07:31] LABS: ANION GAP 3 (5-13); BLOOD UREA NITROGEN 18 mg/dl (7-20); CALCIUM 8.3 mg/dl (8.4-10.2); CARBON DIOXIDE 36 mmol/L (21-31); CHLORIDE 94 mmol/L (97-110); CREATININE 0.43 mg/dl (0.61-1.24); Estimated GFR > 60 mL/min (>60); GLUCOSE 143 mg/dl (70-220); POTASSIUM 4.3 mmol/L (3.5-5.1); SODIUM 133 mmol/L (135-144)
[2018-12-20] MEDS: COLLAGENASE 5 GM (UD JAR) TOP (09:19)
[2018-12-20] MEDS: FUROSEMIDE 20 MG TAB GTB (09:22)
[2018-12-20] MEDS: LISINOPRIL 10 MG TAB GTB (09:22)
[2018-12-20] MEDS: FAMOTIDINE 20 MG TAB GTB ×2 (09:22→20:53)
[2018-12-20] MEDS: ENOXAPARIN 30 MG/0.3 ML SYG SC (09:37)
[2018-12-20] MEDS: MUPIROCIN 2% 22 GM OINT TOP (09:48)
[2018-12-20] MEDS: BALSAM PERU/CASTOR OIL 60 GM TUBE TOP ×2 (09:49→20:54)
[2018-12-20] MEDS: ACETAMINOPHEN 325 MG TAB PO (19:13)
[2018-12-21] MEDS: VALPROIC ACID LIQUID CUP 250 MG/5 ML CUP GTB ×3 (05:15→21:01)
[2018-12-21] MEDS: INSULIN ASPART [NOVOLOG] 3 ML PEN SC ×3 (05:24→18:00)
[2018-12-21] MEDS: LISINOPRIL 10 MG TAB GTB (09:21)
[2018-12-21] MEDS: FAMOTIDINE 20 MG TAB GTB ×2 (09:21→20:54)
[2018-12-21] MEDS: FUROSEMIDE 20 MG TAB GTB (09:21)
[2018-12-21] MEDS: COLLAGENASE 5 GM (UD JAR) TOP (09:22)
[2018-12-21] MEDS: MUPIROCIN 2% 22 GM OINT TOP (09:22)
[2018-12-21] MEDS: BALSAM PERU/CASTOR OIL 60 GM TUBE TOP ×2 (09:22→20:55)
[2018-12-21] MEDS: ENOXAPARIN 30 MG/0.3 ML SYG SC (09:57)
[2018-12-21] MEDS: DAKINS 0.0125%(1/40) 473 ML SOLUTION TP ×2 (15:00→20:55)
[2018-12-21] MEDS: ACETAMINOPHEN 325 MG TAB PO (20:54)
[2018-12-22] MEDS: INSULIN ASPART [NOVOLOG] 3 ML PEN SC ×4 (06:00→17:53)
[2018-12-22] MEDS: VALPROIC ACID LIQUID CUP 250 MG/5 ML CUP GTB ×3 (06:26→22:00)
[2018-12-22] MEDS: COLLAGENASE 5 GM (UD JAR) TOP (09:00)
[2018-12-22] MEDS: LISINOPRIL 10 MG TAB GTB (09:32)
[2018-12-22] MEDS: FUROSEMIDE 20 MG TAB GTB (09:32)
[2018-12-22] MEDS: FAMOTIDINE 20 MG TAB GTB ×2 (09:32→20:37)
[2018-12-22] MEDS: DAKINS 0.0125%(1/40) 473 ML SOLUTION TP ×2 (09:33→20:37)
[2018-12-22] MEDS: BALSAM PERU/CASTOR OIL 60 GM TUBE TOP ×2 (09:33→20:37)
[2018-12-22] MEDS: morphine 2 MG INJ IV (15:44)
[2018-12-22] MEDS: METOPROLOL 5 MG INJ IV (15:56)
[2018-12-22] MEDS: DIGOXIN 500 MCG INJ IV (16:29)
[2018-12-22] MEDS: ACETAMINOPHEN 325 MG TAB PO (16:44)
[2018-12-22 17:52] LABS: ANION GAP 5 (5-13); BLOOD UREA NITROGEN 19 mg/dl (7-20); CALCIUM 8.7 mg/dl (8.4-10.2); CARBON DIOXIDE 34 mmol/L (21-31); CHLORIDE 93 mmol/L (97-110); CREATININE 0.43 mg/dl (0.61-1.24); Estimated GFR > 60 mL/min (>60); GLUCOSE 148 mg/dl (70-220); MAGNESIUM 1.9 mg/dl (1.7-2.5); POTASSIUM 5.1 mmol/L (3.5-5.1); SODIUM 132 mmol/L (135-144)
[2018-12-22 17:56] LABS: ADD MAN DIFF? NO
[2018-12-22 17:59] LABS: WHITE BLOOD COUNT 12.1 10^3/ul (4.8-10.8)
[2018-12-22 17:59] LABS: BASOPHILS % 0.2 % (0.0-2.0); EOSINOPHILS # 0.5 10^3/ul (0.0-0.5); EOSINOPHILS % 4.4 % (0.0-7.0); HEMATOCRIT 28.6 % (42.0-52.0); HEMOGLOBIN 8.7 g/dl (14.0-18.0); LYMPHOCYTES # 0.7 10^3/ul (0.8-2.9); LYMPHOCYTES % 6.1 % (15.0-51.0); MEAN CORPUSCULAR HGB CONC 30.4 g/dl (32.0-37.0); MEAN CORPUSCULAR VOLUME 85.4 fl (82.0-101.0); MEAN PLATELET VOLUME 10.1 fl (7.4-10.4); MONOCYTE # 0.9 10^3/ul (0.3-0.9); MONOCYTES % 7.2 % (0.0-11.0); NEUTROPHIL # 9.8 10^3/ul (1.6-7.5); NEUTROPHILS % 81.2 % (39.0-77.0); PLATELET COUNT 382 10^3/UL (140-415); RED BLOOD COUNT 3.35 10^6/ul (4.70-6.10); RED CELL DISTRIBUTION WIDTH 15.3 % (11.5-14.5)
[2018-12-22] MEDS ORDERED: AMIODARONE 900 MG in DEXTROSE 5% 482 ML IV (18:00)
[2018-12-22] MEDS: AMIODARONE 150MG/D5W BOLUS 100 ML IV (18:13)
[2018-12-22] MEDS ORDERED: VANCOMYCIN IV PER PHARMACY XX (18:30)
[2018-12-22] MEDS: CEFEPIME 1GM/50 ML (PMX) 50 ML IVPB (18:30)
[2018-12-22] MEDS: AMIODARONE 900 MG in DEXTROSE 5% 482 ML IV (18:37)
[2018-12-22 18:48] LABS: LACTIC ACID 1.7 mmol/L (0.5-2.0)
[2018-12-22 18:50] LABS: ALANINE AMINOTRANSFERASE 15 IU/L (13-69); ALBUMIN 2.8 g/dl (3.3-4.9); ALKALINE PHOSPHATASE 109 IU/L (42-121); ANION GAP 8 (5-13); ASPARTATE AMINO TRANSFERASE 18 IU/L (15-46); BILIRUBIN,INDIRECT 0.3 mg/dl (0-1.1); BILIRUBIN,TOTAL 0.3 mg/dl (0.2-1.3); BLOOD UREA NITROGEN 20 mg/dl (7-20); CALCIUM 8.7 mg/dl (8.4-10.2); CARBON DIOXIDE 32 mmol/L (21-31); CHLORIDE 92 mmol/L (97-110); CREATININE 0.37 mg/dl (0.61-1.24); Estimated GFR > 60 mL/min (>60); GLUCOSE 144 mg/dl (70-220); POTASSIUM 5.2 mmol/L (3.5-5.1); SODIUM 132 mmol/L (135-144); TOTAL PROTEIN 6.8 g/dl (6.1-8.1)
[2018-12-22 19:05] LABS: ADD UMIC YES; UR ASCORBIC ACID 40 mg/dL (NEGATIVE); UR BILIRUBIN (Dip) NEGATIVE (NEGATIVE); UR BLOOD (Dip) NEGATIVE (NEGATIVE); UR CLARITY CLEAR (CLEAR); UR COLOR YELLOW (YELLOW); UR GLUCOSE (Dip) NEGATIVE (NEGATIVE); UR KETONES (Dip) NEGATIVE (NEGATIVE); UR LEUKOCYTE ESTERASE (Dip) NEGATIVE Leu/ul (NEGATIVE); UR NITRITE (Dip) NEGATIVE (NEGATIVE); UR RBC 2 /HPF (0-5); UR SPECIFIC GRAVITY (Dip) 1.017 (1.003-1.030); UR TOTAL PROTEIN (Dip) 2+ mg/dl (NEGATIVE); UR UROBILINOGEN (Dip) 2+ mg/dL (NEGATIVE); UR WBC 1 /HPF (0-5)
[2018-12-22] MEDS: VANCOMYCIN HCL 2 GM in SOD CHLORIDE 0.9% 500 ML IVPB (19:30)
[2018-12-22] MEDS ORDERED: VANCOMYCIN HCL 2 GM in SOD CHLORIDE 0.9% 500 ML IVPB (20:30)
[2018-12-22] MEDS: SOD CHLORIDE 0.9% 500 ML IV (21:45)
[2018-12-22 23:15] LABS: PROCALCITONIN 0.09 ng/mL (0.00-0.10)
[2018-12-23] MEDS: INSULIN ASPART [NOVOLOG] 3 ML PEN SC ×4 (00:04→17:55)
[2018-12-23] MEDS: CEFEPIME 1GM/50 ML (PMX) 50 ML IVPB ×3 (03:05→17:43)
[2018-12-23] MEDS: VALPROIC ACID LIQUID CUP 250 MG/5 ML CUP GTB ×3 (05:58→22:19)
[2018-12-23 06:53] LABS: ADD MAN DIFF? NO
[2018-12-23 08:13] LABS: WHITE BLOOD COUNT 11.9 10^3/ul (4.8-10.8)
[2018-12-23 08:13] LABS: BASOPHILS % 0.2 % (0.0-2.0); EOSINOPHILS # 0.3 10^3/ul (0.0-0.5); EOSINOPHILS % 2.1 % (0.0-7.0); HEMATOCRIT 26.7 % (42.0-52.0); HEMOGLOBIN 8.2 g/dl (14.0-18.0); LYMPHOCYTES # 0.7 10^3/ul (0.8-2.9); LYMPHOCYTES % 5.5 % (15.0-51.0); MEAN CORPUSCULAR HEMOGLOBIN 26.6 pg (29.0-33.0); MEAN CORPUSCULAR HGB CONC 30.7 g/dl (32.0-37.0); MEAN CORPUSCULAR VOLUME 86.7 fl (82.0-101.0); MEAN PLATELET VOLUME 10.6 fl (7.4-10.4); MONOCYTE # 1.1 10^3/ul (0.3-0.9); MONOCYTES % 8.9 % (0.0-11.0); NEUTROPHIL # 9.8 10^3/ul (1.6-7.5); NEUTROPHILS % 82.5 % (39.0-77.0); PLATELET COUNT 325 10^3/UL (140-415); RED BLOOD COUNT 3.08 10^6/ul (4.70-6.10); RED CELL DISTRIBUTION WIDTH 15.2 % (11.5-14.5)
[2018-12-23] MEDS: VANCOMYCIN 1.25 GM/NS 250 ML 250 ML IVPB ×2 (08:14→20:29)
[2018-12-23] MEDS: FUROSEMIDE 20 MG TAB GTB (09:51)
[2018-12-23] MEDS: FAMOTIDINE 20 MG TAB GTB ×2 (09:51→20:29)
[2018-12-23] MEDS: LISINOPRIL 10 MG TAB GTB (09:51)
[2018-12-23] MEDS: DAKINS 0.0125%(1/40) 473 ML SOLUTION TP ×2 (09:52→20:29)
[2018-12-23] MEDS: BALSAM PERU/CASTOR OIL 60 GM TUBE TOP ×2 (09:52→20:30)
[2018-12-23] MEDS: ACETAMINOPHEN 325 MG TAB PO ×2 (09:54→17:42)
[2018-12-23] MEDS: NA POLYST SULFON 15 GM/60 ML BTL GTB (17:42)
[2018-12-23] MEDS: INSULIN GLARGINE [LANTus] (100 UNITS/ML) SYG SC (20:52)
[2018-12-24] MEDS: INSULIN ASPART [NOVOLOG] 3 ML PEN SC ×5 (01:32→21:33)
[2018-12-24] MEDS: CEFEPIME 1GM/50 ML (PMX) 50 ML IVPB ×3 (02:12→17:42)
[2018-12-24] MEDS: VALPROIC ACID LIQUID CUP 250 MG/5 ML CUP GTB ×3 (06:00→21:14)
[2018-12-24 06:30] LABS: ADD MAN DIFF? NO
[2018-12-24 06:33] LABS: WHITE BLOOD COUNT 13.7 10^3/ul (4.8-10.8)
[2018-12-24 06:33] LABS: ABNORMAL IP MESSAGE 1; BASOPHILS % 0.1 % (0.0-2.0); EOSINOPHILS # 0.5 10^3/ul (0.0-0.5); EOSINOPHILS % 3.4 % (0.0-7.0); HEMATOCRIT 23.2 % (42.0-52.0); HEMOGLOBIN 7.1 g/dl (14.0-18.0); LYMPHOCYTES # 1.1 10^3/ul (0.8-2.9); LYMPHOCYTES % 7.8 % (15.0-51.0); MEAN CORPUSCULAR HEMOGLOBIN 26.6 pg (29.0-33.0); MEAN CORPUSCULAR HGB CONC 30.6 g/dl (32.0-37.0); MEAN CORPUSCULAR VOLUME 86.9 fl (82.0-101.0); MEAN PLATELET VOLUME 10.7 fl (7.4-10.4); MONOCYTE # 1.7 10^3/ul (0.3-0.9); MONOCYTES % 12.5 % (0.0-11.0); NEUTROPHIL # 10.3 10^3/ul (1.6-7.5); NEUTROPHILS % 75.3 % (39.0-77.0); PLATELET COUNT 297 10^3/UL (140-415); POSITIVE DIFF @See below; RED BLOOD COUNT 2.67 10^6/ul (4.70-6.10); RED CELL DISTRIBUTION WIDTH 15.2 % (11.5-14.5)
[2018-12-24 06:59] LABS: ANION GAP 5 (5-13); BLOOD UREA NITROGEN 27 mg/dl (7-20); CALCIUM 8.2 mg/dl (8.4-10.2); CARBON DIOXIDE 34 mmol/L (21-31); CHLORIDE 93 mmol/L (97-110); CREATININE 0.47 mg/dl (0.61-1.24); Estimated GFR > 60 mL/min (>60); GLUCOSE 139 mg/dl (70-220); POTASSIUM 4.1 mmol/L (3.5-5.1); SODIUM 132 mmol/L (135-144)
[2018-12-24] MEDS: FUROSEMIDE 20 MG TAB GTB ×2 (09:00→17:42)
[2018-12-24] MEDS: LISINOPRIL 10 MG TAB GTB ×2 (09:00→17:43)
[2018-12-24] MEDS: BALSAM PERU/CASTOR OIL 60 GM TUBE TOP ×2 (10:17→21:12)
[2018-12-24] MEDS: DAKINS 0.0125%(1/40) 473 ML SOLUTION TP ×2 (10:17→21:12)
[2018-12-24] MEDS: FAMOTIDINE 20 MG TAB GTB ×2 (10:18→21:08)
[2018-12-24] MEDS: VANCOMYCIN 1.25 GM/NS 250 ML 250 ML IVPB ×2 (10:29→20:11)
[2018-12-24] MEDS: ACETAMINOPHEN 325 MG TAB PO (12:11)
[2018-12-24 14:13] LABS: IMMEDIATE SPIN CROSSMATCH 1 1
[2018-12-24] MEDS: SOD CHLORIDE 0.9% 250 ML IV (18:22)
[2018-12-24 19:49] LABS: VANCOMYCIN,TROUGH 14.9 ug/ml (10.0-20.0)
[2018-12-24] MEDS: INSULIN GLARGINE [LANTus] (100 UNITS/ML) SYG SC (21:33)
[2018-12-25] MEDS: CEFEPIME 1GM/50 ML (PMX) 50 ML IVPB ×3 (03:26→17:50)
[2018-12-25] MEDS: METOPROLOL 5 MG INJ IV (05:03)
[2018-12-25] MEDS: VALPROIC ACID LIQUID CUP 250 MG/5 ML CUP GTB ×3 (06:33→21:22)
[2018-12-25] MEDS: DILTIAZEM 25 MG INJ IV (06:36)
[2018-12-25] MEDS: INSULIN ASPART [NOVOLOG] 3 ML PEN SC ×3 (06:52→17:55)
[2018-12-25] MEDS: LISINOPRIL 10 MG TAB GTB (09:00)
[2018-12-25] MEDS: VANCOMYCIN 1.25 GM/NS 250 ML 250 ML IVPB ×2 (09:05→20:02)
[2018-12-25] MEDS: FAMOTIDINE 20 MG TAB GTB ×2 (09:07→21:21)
[2018-12-25] MEDS: FUROSEMIDE 20 MG TAB GTB (09:12)
[2018-12-25] MEDS: DAKINS 0.0125%(1/40) 473 ML SOLUTION TP ×2 (09:14→21:22)
[2018-12-25] MEDS: BALSAM PERU/CASTOR OIL 60 GM TUBE TOP ×2 (09:14→21:22)
[2018-12-25] MEDS: ACETAMINOPHEN 325 MG TAB PO (21:25)
[2018-12-25] MEDS: INSULIN GLARGINE [LANTus] (100 UNITS/ML) SYG SC (23:04)
[2018-12-26] MEDS: CEFEPIME 1GM/50 ML (PMX) 50 ML IVPB ×3 (00:21→18:06)
[2018-12-26] MEDS: INSULIN ASPART [NOVOLOG] 3 ML PEN SC ×4 (00:36→17:55)
[2018-12-26] MEDS: VALPROIC ACID LIQUID CUP 250 MG/5 ML CUP GTB ×3 (05:47→22:04)
[2018-12-26 06:43] LABS: BLOOD UREA NITROGEN 25 mg/dl (7-20)
[2018-12-26 06:43] LABS: CREATININE 0.39 mg/dl (0.61-1.24)
[2018-12-26] MEDS: LISINOPRIL 10 MG TAB GTB (08:44)
[2018-12-26] MEDS: FUROSEMIDE 20 MG TAB GTB (08:45)
[2018-12-26] MEDS: FAMOTIDINE 20 MG TAB GTB ×2 (09:57→20:46)
[2018-12-26] MEDS: BALSAM PERU/CASTOR OIL 60 GM TUBE TOP ×2 (09:58→20:47)
[2018-12-26] MEDS: DAKINS 0.0125%(1/40) 473 ML SOLUTION TP ×2 (09:59→20:47)
[2018-12-26] MEDS: VANCOMYCIN 1.25 GM/NS 250 ML 250 ML IVPB ×2 (10:34→20:46)
[2018-12-26] MEDS: DIGOXIN 500 MCG INJ IV (12:29)
[2018-12-26] MEDS: SOD CHLORIDE 0.9% 250 ML IV ×2 (14:59→16:37)
[2018-12-26 15:31] LABS: LACTIC ACID 1.7 mmol/L (0.5-2.0)
[2018-12-26] MEDS: SOD CHLORIDE 0.9% 1,000 ML IV (17:45)
[2018-12-26 18:07] LABS: PROCALCITONIN 0.52 ng/mL (0.00-0.10)
[2018-12-26] MEDS: INSULIN GLARGINE [LANTus] (100 UNITS/ML) SYG SC (21:23)
[2018-12-27] MEDS: CEFEPIME 1GM/50 ML (PMX) 50 ML IVPB ×2 (02:08→09:43)
[2018-12-27] MEDS: INSULIN ASPART [NOVOLOG] 3 ML PEN SC ×5 (05:35→23:13)
[2018-12-27] MEDS: VALPROIC ACID LIQUID CUP 250 MG/5 ML CUP GTB ×3 (05:35→21:32)
[2018-12-27] MEDS: SOD CHLORIDE 0.9% 1,000 ML IV (06:34)
[2018-12-27 07:59] LABS: ADD MAN DIFF? NO
[2018-12-27 08:03] LABS: ABNORMAL IP MESSAGE 1; BASOPHILS % 0.2 % (0.0-2.0); EOSINOPHILS # 0.7 10^3/ul (0.0-0.5); EOSINOPHILS % 6.3 % (0.0-7.0); HEMATOCRIT 21.6 % (42.0-52.0); LYMPHOCYTES % 9.2 % (15.0-51.0); MEAN CORPUSCULAR HEMOGLOBIN 26.6 pg (29.0-33.0); MEAN CORPUSCULAR HGB CONC 30.6 g/dl (32.0-37.0); MEAN CORPUSCULAR VOLUME 87.1 fl (82.0-101.0); MEAN PLATELET VOLUME 11.2 fl (7.4-10.4); MONOCYTES % 9.2 % (0.0-11.0); NEUTROPHIL # 8.2 10^3/ul (1.6-7.5); NEUTROPHILS % 74.6 % (39.0-77.0); PLATELET COUNT 226 10^3/UL (140-415); POSITIVE DIFF @See below; RED BLOOD COUNT 2.48 10^6/ul (4.70-6.10); RED CELL DISTRIBUTION WIDTH 15.4 % (11.5-14.5)
[2018-12-27 08:03] LABS: WHITE BLOOD COUNT 10.9 10^3/ul (4.8-10.8)
[2018-12-27 08:16] LABS: HEMOGLOBIN 6.6 g/dl (14.0-18.0); PATH REVIEW? YES
[2018-12-27 08:21] LABS: LACTIC ACID 1.2 mmol/L (0.5-2.0)
[2018-12-27 08:39] LABS: ANION GAP 3 (5-13); BLOOD UREA NITROGEN 22 mg/dl (7-20); CALCIUM 8.1 mg/dl (8.4-10.2); CARBON DIOXIDE 36 mmol/L (21-31); CHLORIDE 96 mmol/L (97-110); CREATININE 0.37 mg/dl (0.61-1.24); Estimated GFR > 60 mL/min (>60); GLUCOSE 173 mg/dl (70-220); MAGNESIUM 2.1 mg/dl (1.7-2.5); POTASSIUM 3.7 mmol/L (3.5-5.1); SODIUM 135 mmol/L (135-144)
[2018-12-27 08:49] LABS: VANCOMYCIN,TROUGH 16.1 ug/ml (10.0-20.0)
[2018-12-27] MEDS: VANCOMYCIN 1.25 GM/NS 250 ML 250 ML IVPB ×2 (09:43→20:10)
[2018-12-27] MEDS: DAKINS 0.0125%(1/40) 473 ML SOLUTION TP ×2 (09:44→20:12)
[2018-12-27] MEDS: FUROSEMIDE 20 MG TAB GTB (09:44)
[2018-12-27] MEDS: LISINOPRIL 10 MG TAB GTB (09:44)
[2018-12-27] MEDS: FAMOTIDINE 20 MG TAB GTB ×2 (09:44→20:11)
[2018-12-27] MEDS: BALSAM PERU/CASTOR OIL 60 GM TUBE TOP ×2 (09:45→20:12)
[2018-12-27 09:49] LABS: BAND NEUTROPHILS #M 1.6 10^3/ul (0.0-0.6); BAND NEUTROPHILS % (M) 15 % (0-4); BASOPHIL #M 0.1 10^3/ul (0.0-0.0); BASOPHILS % (M) 1 % (0-2); EOSINOPHILS % (M) 6 % (0-7); HYPOCHROMASIA 1+ (0-0); LYMPHOCYTES #M 0.6 10^3/ul (0.8-2.9); LYMPHOCYTES % (M) 6 % (15-51); MONOCYTE #M 0.4 10^3/ul (0.3-0.9); MONOCYTES % (M) 4 % (0-11); MYELOCYTES #M 0.1 10^3/ul (0.0-0.0); MYELOCYTES % (M) 1 % (0-0); PLATELET ESTIMATE NORMAL; POLYCHROMASIA 3+ (0-0); REACTIVE LYMPHOCYTES #M 0.1 10^3/ul (0.0-0.0); REACTIVE LYMPHOCYTES% (M) 1 % (0-0); SEG NEUT #M 7.4 10^3/ul (1.6-7.5); SEGMENTED NEUTROPHILS (M) % 66 % (39-77); SMUDGE%M 4 % (0-0)
[2018-12-27] MEDS: LEVOFLOXACIN 500MG/D5W (PMX) 100 ML IVPB (17:06)
[2018-12-27] MEDS: FUROSEMIDE 40 MG INJ IV ×2 (20:02→20:03)
[2018-12-27] MEDS: INSULIN GLARGINE [LANTus] (100 UNITS/ML) SYG SC (20:20)
[2018-12-27 21:36] LABS: LACTIC ACID 1.2 mmol/L (0.5-2.0)
[2018-12-27] MEDS: PIPER-TAZO 3.375 GM IV (PMX) 100 ML IVPB (21:40)
[2018-12-27] MEDS: ACETAMINOPHEN 325 MG TAB PO (22:29)
[2018-12-28] MEDS: IBUPROFEN 600 MG TAB GTB (00:07)
[2018-12-28 00:38] LABS: IMMEDIATE SPIN CROSSMATCH 1 2
[2018-12-28] MEDS: SOD CHLORIDE 0.9% 1,000 ML IV ×2 (02:26→22:26)
[2018-12-28] MEDS: PIPER-TAZO 3.375 GM IV (PMX) 100 ML IVPB ×3 (05:22→22:19)
[2018-12-28] MEDS: VALPROIC ACID LIQUID CUP 250 MG/5 ML CUP GTB ×3 (05:26→22:18)
[2018-12-28] MEDS: INSULIN ASPART [NOVOLOG] 3 ML PEN SC ×3 (05:30→18:41)
[2018-12-28 06:47] LABS: ADD MAN DIFF? NO
[2018-12-28 06:50] LABS: BASOPHILS % 0.3 % (0.0-2.0); EOSINOPHILS # 0.9 10^3/ul (0.0-0.5); EOSINOPHILS % 8.2 % (0.0-7.0); HEMATOCRIT 25.3 % (42.0-52.0); LYMPHOCYTES # 1.2 10^3/ul (0.8-2.9); LYMPHOCYTES % 10.4 % (15.0-51.0); MEAN CORPUSCULAR HEMOGLOBIN 27.3 pg (29.0-33.0); MEAN CORPUSCULAR HGB CONC 31.6 g/dl (32.0-37.0); MEAN CORPUSCULAR VOLUME 86.3 fl (82.0-101.0); MEAN PLATELET VOLUME 11.6 fl (7.4-10.4); MONOCYTE # 1.1 10^3/ul (0.3-0.9); MONOCYTES % 9.6 % (0.0-11.0); NEUTROPHIL # 8.1 10^3/ul (1.6-7.5); NEUTROPHILS % 70.5 % (39.0-77.0); PLATELET COUNT 206 10^3/UL (140-415); RED BLOOD COUNT 2.93 10^6/ul (4.70-6.10); RED CELL DISTRIBUTION WIDTH 15.1 % (11.5-14.5)
[2018-12-28 06:50] LABS: WHITE BLOOD COUNT 11.4 10^3/ul (4.8-10.8)
[2018-12-28 07:07] LABS: ANION GAP 2 (5-13); BLOOD UREA NITROGEN 21 mg/dl (7-20); CALCIUM 8.2 mg/dl (8.4-10.2); CARBON DIOXIDE 36 mmol/L (21-31); CHLORIDE 96 mmol/L (97-110); CREATININE 0.41 mg/dl (0.61-1.24); Estimated GFR > 60 mL/min (>60); GLUCOSE 157 mg/dl (70-220); POTASSIUM 3.5 mmol/L (3.5-5.1); SODIUM 134 mmol/L (135-144)
[2018-12-28 08:11] LABS: PROCALCITONIN 0.32 ng/mL (0.00-0.10)
[2018-12-28] MEDS: FAMOTIDINE 20 MG TAB GTB ×2 (09:34→22:16)
[2018-12-28] MEDS: LISINOPRIL 10 MG TAB GTB (09:36)
[2018-12-28] MEDS: FUROSEMIDE 20 MG TAB GTB (09:36)
[2018-12-28] MEDS: DAKINS 0.0125%(1/40) 473 ML SOLUTION TP (09:37)
[2018-12-28] MEDS: BALSAM PERU/CASTOR OIL 60 GM TUBE TOP (09:38)
[2018-12-28 09:46] LABS: LACTIC ACID 1.7 mmol/L (0.5-2.0)
[2018-12-28 11:45] LABS: OCCULT BLOOD STOOL NEGATIVE (NEGATIVE)
[2018-12-28] MEDS: VANCOMYCIN 1.25 GM/NS 250 ML 250 ML IVPB (12:00)
[2018-12-28] MEDS: LEVOFLOXACIN 500MG/D5W (PMX) 100 ML IVPB (17:06)
[2018-12-28] MEDS: ACETAMINOPHEN 325 MG TAB PO (19:55)
[2018-12-28] MEDS: INSULIN GLARGINE [LANTus] (100 UNITS/ML) SYG SC (19:59)
[2018-12-29] MEDS: INSULIN ASPART [NOVOLOG] 3 ML PEN SC ×4 (00:26→18:00)
[2018-12-29] MEDS: BALSAM PERU/CASTOR OIL 60 GM TUBE TOP ×3 (02:12→20:46)
[2018-12-29] MEDS: DAKINS 0.0125%(1/40) 473 ML SOLUTION TP ×3 (02:12→20:47)
[2018-12-29] MEDS: METOPROLOL 5 MG INJ IV (03:10)
[2018-12-29] MEDS: VALPROIC ACID LIQUID CUP 250 MG/5 ML CUP GTB ×3 (06:53→22:14)
[2018-12-29] MEDS: PIPER-TAZO 3.375 GM IV (PMX) 100 ML IVPB ×3 (06:54→22:14)
[2018-12-29] MEDS: FUROSEMIDE 20 MG TAB GTB (08:23)
[2018-12-29] MEDS: FAMOTIDINE 20 MG TAB GTB ×2 (08:23→20:46)
[2018-12-29] MEDS: LISINOPRIL 10 MG TAB GTB (08:29)
[2018-12-29 09:13] LABS: ADD MAN DIFF? NO
[2018-12-29 09:29] LABS: BASOPHILS % 0.3 % (0.0-2.0); EOSINOPHILS # 0.7 10^3/ul (0.0-0.5); EOSINOPHILS % 5.9 % (0.0-7.0); HEMATOCRIT 27.4 % (42.0-52.0); HEMOGLOBIN 8.6 g/dl (14.0-18.0); LYMPHOCYTES % 8.5 % (15.0-51.0); MEAN CORPUSCULAR HEMOGLOBIN 27.2 pg (29.0-33.0); MEAN CORPUSCULAR HGB CONC 31.4 g/dl (32.0-37.0); MEAN CORPUSCULAR VOLUME 86.7 fl (82.0-101.0); MONOCYTE # 1.3 10^3/ul (0.3-0.9); MONOCYTES % 11.7 % (0.0-11.0); NEUTROPHIL # 8.2 10^3/ul (1.6-7.5); NEUTROPHILS % 72.7 % (39.0-77.0); PLATELET COUNT 250 10^3/UL (140-415); RED BLOOD COUNT 3.16 10^6/ul (4.70-6.10); RED CELL DISTRIBUTION WIDTH 15.1 % (11.5-14.5)
[2018-12-29 09:29] LABS: WHITE BLOOD COUNT 11.2 10^3/ul (4.8-10.8)
[2018-12-29 09:51] LABS: ANION GAP 2 (5-13); BLOOD UREA NITROGEN 20 mg/dl (7-20); CALCIUM 8.2 mg/dl (8.4-10.2); CARBON DIOXIDE 37 mmol/L (21-31); CHLORIDE 96 mmol/L (97-110); CREATININE 0.43 mg/dl (0.61-1.24); Estimated GFR > 60 mL/min (>60); GLUCOSE 157 mg/dl (70-220); POTASSIUM 3.6 mmol/L (3.5-5.1); SODIUM 135 mmol/L (135-144)
[2018-12-29] MEDS: ACETAMINOPHEN 325 MG TAB PO (11:25)
[2018-12-29] MEDS: SOD CHLORIDE 0.9% 1,000 ML IV (15:33)
[2018-12-29] MEDS: LEVOFLOXACIN 500MG/D5W (PMX) 100 ML IVPB (16:57)
[2018-12-29] MEDS: INSULIN GLARGINE [LANTus] (100 UNITS/ML) SYG SC (20:56)
[2018-12-30] MEDS: ARTIFICIAL TEARS 15 ML OPH BOTH EYES ×3 (01:20→20:33)
[2018-12-30] MEDS: INSULIN ASPART [NOVOLOG] 3 ML PEN SC ×4 (01:21→17:25)
[2018-12-30] MEDS: VALPROIC ACID LIQUID CUP 250 MG/5 ML CUP GTB ×3 (05:31→21:45)
[2018-12-30] MEDS: PIPER-TAZO 3.375 GM IV (PMX) 100 ML IVPB ×3 (05:31→21:46)
[2018-12-30] MEDS: METOPROLOL 5 MG INJ IV (05:41)
[2018-12-30] MEDS: FUROSEMIDE 20 MG TAB GTB (08:00)
[2018-12-30] MEDS: FAMOTIDINE 20 MG TAB GTB ×2 (08:00→20:33)
[2018-12-30] MEDS: DAKINS 0.0125%(1/40) 473 ML SOLUTION TP (08:01)
[2018-12-30] MEDS: LISINOPRIL 10 MG TAB GTB (08:01)
[2018-12-30] MEDS: BALSAM PERU/CASTOR OIL 60 GM TUBE TOP ×2 (08:01→20:33)
[2018-12-30 08:05] LABS: ADD MAN DIFF? NO
[2018-12-30 08:10] LABS: BASOPHILS % 0.2 % (0.0-2.0); EOSINOPHILS # 1.1 10^3/ul (0.0-0.5); EOSINOPHILS % 8.8 % (0.0-7.0); HEMATOCRIT 25.3 % (42.0-52.0); HEMOGLOBIN 7.7 g/dl (14.0-18.0); LYMPHOCYTES # 0.9 10^3/ul (0.8-2.9); LYMPHOCYTES % 7.8 % (15.0-51.0); MEAN CORPUSCULAR HEMOGLOBIN 26.4 pg (29.0-33.0); MEAN CORPUSCULAR HGB CONC 30.4 g/dl (32.0-37.0); MEAN CORPUSCULAR VOLUME 86.6 fl (82.0-101.0); MEAN PLATELET VOLUME 10.9 fl (7.4-10.4); MONOCYTE # 1.2 10^3/ul (0.3-0.9); MONOCYTES % 9.6 % (0.0-11.0); NEUTROPHIL # 8.7 10^3/ul (1.6-7.5); NEUTROPHILS % 72.5 % (39.0-77.0); PLATELET COUNT 233 10^3/UL (140-415); RED BLOOD COUNT 2.92 10^6/ul (4.70-6.10); RED CELL DISTRIBUTION WIDTH 15.3 % (11.5-14.5)
[2018-12-30 08:42] LABS: ANION GAP 2 (5-13); BLOOD UREA NITROGEN 17 mg/dl (7-20); CALCIUM 7.9 mg/dl (8.4-10.2); CARBON DIOXIDE 38 mmol/L (21-31); CHLORIDE 95 mmol/L (97-110); CREATININE 0.46 mg/dl (0.61-1.24); Estimated GFR > 60 mL/min (>60); GLUCOSE 167 mg/dl (70-220); MAGNESIUM 1.9 mg/dl (1.7-2.5); POTASSIUM 3.7 mmol/L (3.5-5.1); SODIUM 135 mmol/L (135-144)
[2018-12-30 08:58] LABS: PROCALCITONIN 0.14 ng/mL (0.00-0.10)
[2018-12-30] MEDS: COLLAGENASE 5 GM (UD JAR) TOP (13:14)
[2018-12-30] MEDS: LEVOFLOXACIN 500MG/D5W (PMX) 100 ML IVPB (16:46)
[2018-12-30] MEDS: INSULIN GLARGINE [LANTus] (100 UNITS/ML) SYG SC (20:45)
[2018-12-31] MEDS: INSULIN ASPART [NOVOLOG] 3 ML PEN SC ×4 (00:56→17:21)
[2018-12-31] MEDS: PIPER-TAZO 3.375 GM IV (PMX) 100 ML IVPB ×3 (06:23→22:01)
[2018-12-31] MEDS: VALPROIC ACID LIQUID CUP 250 MG/5 ML CUP GTB ×3 (06:23→22:01)
[2018-12-31] MEDS: ARTIFICIAL TEARS 15 ML OPH BOTH EYES ×2 (08:10→20:58)
[2018-12-31] MEDS: BALSAM PERU/CASTOR OIL 60 GM TUBE TOP ×2 (08:11→20:58)
[2018-12-31] MEDS: FAMOTIDINE 20 MG TAB GTB ×2 (08:11→20:57)
[2018-12-31] MEDS: DAKINS 0.0125%(1/40) 473 ML SOLUTION TP (08:11)
[2018-12-31] MEDS: COLLAGENASE 5 GM (UD JAR) TOP (08:11)
[2018-12-31] MEDS: FUROSEMIDE 20 MG TAB GTB (08:12)
[2018-12-31] MEDS: LISINOPRIL 10 MG TAB GTB (08:13)
[2018-12-31 08:30] LABS: ADD MAN DIFF? NO
[2018-12-31 08:36] LABS: WHITE BLOOD COUNT 11.6 10^3/ul (4.8-10.8)
[2018-12-31 08:36] LABS: BASOPHILS % 0.2 % (0.0-2.0); EOSINOPHILS % 8.5 % (0.0-7.0); HEMATOCRIT 26.6 % (42.0-52.0); HEMOGLOBIN 8.1 g/dl (14.0-18.0); LYMPHOCYTES # 1.2 10^3/ul (0.8-2.9); LYMPHOCYTES % 10.1 % (15.0-51.0); MEAN CORPUSCULAR HGB CONC 30.5 g/dl (32.0-37.0); MEAN CORPUSCULAR VOLUME 85.3 fl (82.0-101.0); MONOCYTE # 1.1 10^3/ul (0.3-0.9); MONOCYTES % 9.8 % (0.0-11.0); NEUTROPHIL # 8.1 10^3/ul (1.6-7.5); NEUTROPHILS % 70.2 % (39.0-77.0); PLATELET COUNT 270 10^3/UL (140-415); RED BLOOD COUNT 3.12 10^6/ul (4.70-6.10); RED CELL DISTRIBUTION WIDTH 15.1 % (11.5-14.5)
[2018-12-31 09:22] LABS: ANION GAP 2 (5-13); BLOOD UREA NITROGEN 18 mg/dl (7-20); CALCIUM 8.2 mg/dl (8.4-10.2); CARBON DIOXIDE 36 mmol/L (21-31); CHLORIDE 94 mmol/L (97-110); CREATININE 0.44 mg/dl (0.61-1.24); Estimated GFR > 60 mL/min (>60); GLUCOSE 169 mg/dl (70-220); POTASSIUM 3.8 mmol/L (3.5-5.1); SODIUM 132 mmol/L (135-144)
[2018-12-31] MEDS: SOD CHLORIDE 0.9% 500 ML IV (15:15)
[2018-12-31] MEDS: LEVOFLOXACIN 500MG/D5W (PMX) 100 ML IVPB (16:34)
[2018-12-31] MEDS: INSULIN GLARGINE [LANTus] (100 UNITS/ML) SYG SC (21:09)
[2019-01-01] MEDS: VALPROIC ACID LIQUID CUP 250 MG/5 ML CUP GTB ×3 (05:44→21:02)
[2019-01-01] MEDS: PIPER-TAZO 3.375 GM IV (PMX) 100 ML IVPB ×3 (05:44→21:02)
[2019-01-01] MEDS: INSULIN ASPART [NOVOLOG] 3 ML PEN SC ×4 (05:44→18:00)
[2019-01-01 06:33] LABS: ADD MAN DIFF? NO
[2019-01-01 06:43] LABS: BASOPHILS % 0.3 % (0.0-2.0); EOSINOPHILS # 1.2 10^3/ul (0.0-0.5); EOSINOPHILS % 12.5 % (0.0-7.0); HEMATOCRIT 27.9 % (42.0-52.0); HEMOGLOBIN 8.7 g/dl (14.0-18.0); LYMPHOCYTES % 11.1 % (15.0-51.0); MEAN CORPUSCULAR HGB CONC 31.2 g/dl (32.0-37.0); MEAN CORPUSCULAR VOLUME 86.6 fl (82.0-101.0); MEAN PLATELET VOLUME 10.8 fl (7.4-10.4); MONOCYTE # 0.8 10^3/ul (0.3-0.9); MONOCYTES % 8.9 % (0.0-11.0); NEUTROPHILS % 65.5 % (39.0-77.0); PLATELET COUNT 277 10^3/UL (140-415); RED BLOOD COUNT 3.22 10^6/ul (4.70-6.10); RED CELL DISTRIBUTION WIDTH 14.9 % (11.5-14.5)
[2019-01-01 06:43] LABS: WHITE BLOOD COUNT 9.2 10^3/ul (4.8-10.8)
[2019-01-01 07:12] LABS: ANION GAP 2 (5-13); BLOOD UREA NITROGEN 17 mg/dl (7-20); CALCIUM 8.1 mg/dl (8.4-10.2); CARBON DIOXIDE 35 mmol/L (21-31); CHLORIDE 95 mmol/L (97-110); CREATININE 0.42 mg/dl (0.61-1.24); Estimated GFR > 60 mL/min (>60); GLUCOSE 158 mg/dl (70-220); POTASSIUM 4.3 mmol/L (3.5-5.1); SODIUM 132 mmol/L (135-144)
[2019-01-01] MEDS: FAMOTIDINE 20 MG TAB GTB ×2 (10:08→20:58)
[2019-01-01] MEDS: LISINOPRIL 10 MG TAB GTB (10:08)
[2019-01-01] MEDS: FUROSEMIDE 20 MG TAB GTB (10:08)
[2019-01-01] MEDS: ARTIFICIAL TEARS 15 ML OPH BOTH EYES ×2 (10:09→20:58)
[2019-01-01] MEDS: COLLAGENASE 5 GM (UD JAR) TOP (10:09)
[2019-01-01] MEDS: DAKINS 0.0125%(1/40) 473 ML SOLUTION TP (10:10)
[2019-01-01] MEDS: BALSAM PERU/CASTOR OIL 60 GM TUBE TOP ×2 (10:10→20:58)
[2019-01-01] MEDS: ACETAMINOPHEN 325 MG TAB PO (10:15)
[2019-01-01] MEDS: INSULIN GLARGINE [LANTus] (100 UNITS/ML) SYG SC (21:30)
[2019-01-02] MEDS: PIPER-TAZO 3.375 GM IV (PMX) 100 ML IVPB ×3 (05:37→22:07)
[2019-01-02] MEDS: VALPROIC ACID LIQUID CUP 250 MG/5 ML CUP GTB ×3 (05:37→22:08)
[2019-01-02] MEDS: INSULIN ASPART [NOVOLOG] 3 ML PEN SC ×4 (05:48→18:29)
[2019-01-02 07:34] LABS: ADD MAN DIFF? NO
[2019-01-02 07:44] LABS: BASOPHILS % 0.2 % (0.0-2.0); EOSINOPHILS # 1.2 10^3/ul (0.0-0.5); HEMATOCRIT 29.4 % (42.0-52.0); HEMOGLOBIN 8.9 g/dl (14.0-18.0); LYMPHOCYTES # 0.9 10^3/ul (0.8-2.9); LYMPHOCYTES % 8.6 % (15.0-51.0); MEAN CORPUSCULAR HEMOGLOBIN 26.5 pg (29.0-33.0); MEAN CORPUSCULAR HGB CONC 30.3 g/dl (32.0-37.0); MEAN CORPUSCULAR VOLUME 87.5 fl (82.0-101.0); MEAN PLATELET VOLUME 10.8 fl (7.4-10.4); MONOCYTE # 0.8 10^3/ul (0.3-0.9); MONOCYTES % 7.8 % (0.0-11.0); NEUTROPHIL # 7.1 10^3/ul (1.6-7.5); NEUTROPHILS % 70.3 % (39.0-77.0); PLATELET COUNT 296 10^3/UL (140-415); RED BLOOD COUNT 3.36 10^6/ul (4.70-6.10)
[2019-01-02 07:44] LABS: WHITE BLOOD COUNT 10.1 10^3/ul (4.8-10.8)
[2019-01-02 08:08] LABS: ANION GAP 4 (5-13); BLOOD UREA NITROGEN 16 mg/dl (7-20); CALCIUM 8.3 mg/dl (8.4-10.2); CARBON DIOXIDE 35 mmol/L (21-31); CHLORIDE 95 mmol/L (97-110); CREATININE 0.43 mg/dl (0.61-1.24); Estimated GFR > 60 mL/min (>60); GLUCOSE 179 mg/dl (70-220); POTASSIUM 4.3 mmol/L (3.5-5.1); SODIUM 134 mmol/L (135-144)
[2019-01-02] MEDS: LISINOPRIL 10 MG TAB GTB (09:00)
[2019-01-02] MEDS: COLLAGENASE 5 GM (UD JAR) TOP (10:00)
[2019-01-02] MEDS: FAMOTIDINE 20 MG TAB GTB ×2 (10:00→21:02)
[2019-01-02] MEDS: BALSAM PERU/CASTOR OIL 60 GM TUBE TOP ×2 (10:01→21:05)
[2019-01-02] MEDS: ARTIFICIAL TEARS 15 ML OPH BOTH EYES ×2 (10:01→21:05)
[2019-01-02] MEDS: DAKINS 0.0125%(1/40) 473 ML SOLUTION TP (10:01)
[2019-01-02] MEDS: FUROSEMIDE 20 MG TAB GTB (10:04)
[2019-01-02] MEDS: INSULIN GLARGINE [LANTus] (100 UNITS/ML) SYG SC (21:12)
[2019-01-03] MEDS: INSULIN ASPART [NOVOLOG] 3 ML PEN SC ×4 (01:35→17:50)
[2019-01-03] MEDS: METOPROLOL 5 MG INJ IV ×2 (01:58→10:53)
[2019-01-03] MEDS: PIPER-TAZO 3.375 GM IV (PMX) 100 ML IVPB ×3 (05:53→21:36)
[2019-01-03] MEDS: VALPROIC ACID LIQUID CUP 250 MG/5 ML CUP GTB ×3 (05:54→21:36)
[2019-01-03 06:16] LABS: ADD MAN DIFF? NO
[2019-01-03 06:20] LABS: BASOPHILS % 0.3 % (0.0-2.0); EOSINOPHILS # 1.1 10^3/ul (0.0-0.5); EOSINOPHILS % 9.9 % (0.0-7.0); HEMATOCRIT 32.1 % (42.0-52.0); HEMOGLOBIN 9.6 g/dl (14.0-18.0); LYMPHOCYTES # 0.9 10^3/ul (0.8-2.9); LYMPHOCYTES % 7.7 % (15.0-51.0); MEAN CORPUSCULAR HEMOGLOBIN 25.9 pg (29.0-33.0); MEAN CORPUSCULAR HGB CONC 29.9 g/dl (32.0-37.0); MEAN CORPUSCULAR VOLUME 86.8 fl (82.0-101.0); MEAN PLATELET VOLUME 10.9 fl (7.4-10.4); MONOCYTE # 0.8 10^3/ul (0.3-0.9); MONOCYTES % 7.3 % (0.0-11.0); NEUTROPHIL # 8.4 10^3/ul (1.6-7.5); NEUTROPHILS % 73.6 % (39.0-77.0); PLATELET COUNT 326 10^3/UL (140-415)
[2019-01-03 06:20] LABS: WHITE BLOOD COUNT 11.4 10^3/ul (4.8-10.8)
[2019-01-03 06:52] LABS: ANION GAP 1 (5-13); BLOOD UREA NITROGEN 17 mg/dl (7-20); CALCIUM 8.6 mg/dl (8.4-10.2); CARBON DIOXIDE 37 mmol/L (21-31); CHLORIDE 96 mmol/L (97-110); CREATININE 0.46 mg/dl (0.61-1.24); Estimated GFR > 60 mL/min (>60); GLUCOSE 154 mg/dl (70-220); POTASSIUM 4.5 mmol/L (3.5-5.1); SODIUM 134 mmol/L (135-144)
[2019-01-03] MEDS: COLLAGENASE 5 GM (UD JAR) TOP (08:57)
[2019-01-03] MEDS: ARTIFICIAL TEARS 15 ML OPH BOTH EYES ×2 (08:58→21:00)
[2019-01-03] MEDS: FAMOTIDINE 20 MG TAB GTB ×2 (08:58→21:35)
[2019-01-03] MEDS: DAKINS 0.0125%(1/40) 473 ML SOLUTION TP (08:58)
[2019-01-03] MEDS: LISINOPRIL 10 MG TAB GTB (09:00)
[2019-01-03] MEDS: FUROSEMIDE 20 MG TAB GTB (09:00)
[2019-01-03] MEDS: BALSAM PERU/CASTOR OIL 60 GM TUBE TOP (09:02)
[2019-01-03] MEDS: SOD CHLORIDE 0.9% 250 ML IV (12:28)
[2019-01-03] MEDS: INSULIN GLARGINE [LANTus] (100 UNITS/ML) SYG SC (21:46)
[2019-01-04] MEDS: BALSAM PERU/CASTOR OIL 60 GM TUBE TOP ×3 (00:32→20:46)
[2019-01-04] MEDS: VALPROIC ACID LIQUID CUP 250 MG/5 ML CUP GTB ×3 (05:31→23:53)
[2019-01-04] MEDS: PIPER-TAZO 3.375 GM IV (PMX) 100 ML IVPB ×3 (05:31→23:54)
[2019-01-04 06:58] LABS: ADD MAN DIFF? NO
[2019-01-04 07:02] LABS: WHITE BLOOD COUNT 11.1 10^3/ul (4.8-10.8)
[2019-01-04 07:02] LABS: BASOPHILS % 0.3 % (0.0-2.0); EOSINOPHILS # 1.1 10^3/ul (0.0-0.5); EOSINOPHILS % 10.3 % (0.0-7.0); HEMATOCRIT 31.6 % (42.0-52.0); HEMOGLOBIN 9.7 g/dl (14.0-18.0); LYMPHOCYTES # 1.1 10^3/ul (0.8-2.9); LYMPHOCYTES % 10.2 % (15.0-51.0); MEAN CORPUSCULAR HEMOGLOBIN 27.1 pg (29.0-33.0); MEAN CORPUSCULAR HGB CONC 30.7 g/dl (32.0-37.0); MEAN CORPUSCULAR VOLUME 88.3 fl (82.0-101.0); MEAN PLATELET VOLUME 10.8 fl (7.4-10.4); MONOCYTE # 0.8 10^3/ul (0.3-0.9); MONOCYTES % 7.1 % (0.0-11.0); NEUTROPHIL # 7.9 10^3/ul (1.6-7.5); NEUTROPHILS % 70.8 % (39.0-77.0); PLATELET COUNT 293 10^3/UL (140-415); RED BLOOD COUNT 3.58 10^6/ul (4.70-6.10); RED CELL DISTRIBUTION WIDTH 15.1 % (11.5-14.5)
[2019-01-04 07:34] LABS: ANION GAP 4 (5-13); BLOOD UREA NITROGEN 17 mg/dl (7-20); CALCIUM 8.3 mg/dl (8.4-10.2); CARBON DIOXIDE 31 mmol/L (21-31); CHLORIDE 98 mmol/L (97-110); CREATININE 0.39 mg/dl (0.61-1.24); Estimated GFR > 60 mL/min (>60); GLUCOSE 155 mg/dl (70-220); POTASSIUM 4.6 mmol/L (3.5-5.1); SODIUM 133 mmol/L (135-144)
[2019-01-04] MEDS: INSULIN ASPART [NOVOLOG] 3 ML PEN SC ×4 (07:40→17:52)
[2019-01-04] MEDS: FUROSEMIDE 20 MG TAB GTB (08:25)
[2019-01-04] MEDS: ARTIFICIAL TEARS 15 ML OPH BOTH EYES ×2 (08:25→20:46)
[2019-01-04] MEDS: COLLAGENASE 5 GM (UD JAR) TOP (08:26)
[2019-01-04] MEDS: FAMOTIDINE 20 MG TAB GTB ×2 (08:26→20:40)
[2019-01-04] MEDS: LISINOPRIL 10 MG TAB GTB (08:26)
[2019-01-04] MEDS: DIGOXIN 500 MCG INJ IV ×2 (13:36→20:42)
[2019-01-04] MEDS: AMIODARONE 150MG/D5W BOLUS 100 ML IV (13:48)
[2019-01-04] MEDS: DAKINS 0.0125%(1/40) 473 ML SOLUTION TP (15:52)
[2019-01-04] MEDS: AMIODARONE 900 MG in DEXTROSE 5% 482 ML IV (16:40)
[2019-01-04] MEDS: LIDOCAINE 2%/EPI (MDV) 20ML INJ INJ (18:40)
[2019-01-04] MEDS: SILVER NITRATE SWAB TOP (18:41)
[2019-01-04] MEDS: INSULIN GLARGINE [LANTus] (100 UNITS/ML) SYG SC (20:58)
[2019-01-05] MEDS: INSULIN ASPART [NOVOLOG] 3 ML PEN SC ×5 (06:00→23:55)
[2019-01-05] MEDS: VALPROIC ACID LIQUID CUP 250 MG/5 ML CUP GTB ×3 (06:42→22:08)
[2019-01-05] MEDS: PIPER-TAZO 3.375 GM IV (PMX) 100 ML IVPB ×3 (06:43→22:08)
[2019-01-05 06:55] LABS: ADD MAN DIFF? NO
[2019-01-05 06:58] LABS: WHITE BLOOD COUNT 11.2 10^3/ul (4.8-10.8)
[2019-01-05 06:58] LABS: BASOPHILS % 0.3 % (0.0-2.0); EOSINOPHILS # 1.2 10^3/ul (0.0-0.5); EOSINOPHILS % 10.9 % (0.0-7.0); HEMOGLOBIN 9.8 g/dl (14.0-18.0); LYMPHOCYTES # 1.1 10^3/ul (0.8-2.9); LYMPHOCYTES % 9.6 % (15.0-51.0); MEAN CORPUSCULAR HEMOGLOBIN 26.3 pg (29.0-33.0); MEAN CORPUSCULAR HGB CONC 30.6 g/dl (32.0-37.0); MEAN PLATELET VOLUME 10.8 fl (7.4-10.4); MONOCYTE # 1.2 10^3/ul (0.3-0.9); MONOCYTES % 10.5 % (0.0-11.0); NEUTROPHIL # 7.5 10^3/ul (1.6-7.5); NEUTROPHILS % 67.1 % (39.0-77.0); PLATELET COUNT 306 10^3/UL (140-415); RED BLOOD COUNT 3.72 10^6/ul (4.70-6.10); RED CELL DISTRIBUTION WIDTH 14.9 % (11.5-14.5)
[2019-01-05 07:28] LABS: ANION GAP 3 (5-13); BLOOD UREA NITROGEN 20 mg/dl (7-20); CALCIUM 8.6 mg/dl (8.4-10.2); CARBON DIOXIDE 34 mmol/L (21-31); CHLORIDE 96 mmol/L (97-110); CREATININE 0.39 mg/dl (0.61-1.24); Estimated GFR > 60 mL/min (>60); GLUCOSE 169 mg/dl (70-220); POTASSIUM 4.5 mmol/L (3.5-5.1); SODIUM 133 mmol/L (135-144)
[2019-01-05] MEDS: ARTIFICIAL TEARS 15 ML OPH BOTH EYES ×2 (08:30→20:56)
[2019-01-05] MEDS: FAMOTIDINE 20 MG TAB GTB ×2 (08:31→20:55)
[2019-01-05] MEDS: LISINOPRIL 10 MG TAB GTB ×2 (08:31→11:26)
[2019-01-05] MEDS: FUROSEMIDE 20 MG TAB GTB (08:32)
[2019-01-05] MEDS: COLLAGENASE 5 GM (UD JAR) TOP (08:34)
[2019-01-05] MEDS: BALSAM PERU/CASTOR OIL 60 GM TUBE TOP ×2 (12:21→20:56)
[2019-01-05] MEDS: DAKINS 0.0125%(1/40) 473 ML SOLUTION TP (12:21)
[2019-01-05] MEDS: INSULIN GLARGINE [LANTus] (100 UNITS/ML) SYG SC (20:58)
[2019-01-06] MEDS: INSULIN ASPART [NOVOLOG] 3 ML PEN SC ×3 (05:28→21:00)
[2019-01-06] MEDS: VALPROIC ACID LIQUID CUP 250 MG/5 ML CUP GTB ×3 (05:28→21:45)
[2019-01-06] MEDS: PIPER-TAZO 3.375 GM IV (PMX) 100 ML IVPB ×3 (05:28→21:47)
[2019-01-06 06:12] LABS: ADD MAN DIFF? NO
[2019-01-06 06:19] LABS: BASOPHILS % 0.2 % (0.0-2.0); EOSINOPHILS # 0.9 10^3/ul (0.0-0.5); EOSINOPHILS % 9.6 % (0.0-7.0); HEMATOCRIT 29.9 % (42.0-52.0); HEMOGLOBIN 9.1 g/dl (14.0-18.0); LYMPHOCYTES % 10.8 % (15.0-51.0); MEAN CORPUSCULAR HEMOGLOBIN 26.1 pg (29.0-33.0); MEAN CORPUSCULAR HGB CONC 30.4 g/dl (32.0-37.0); MEAN CORPUSCULAR VOLUME 85.9 fl (82.0-101.0); MEAN PLATELET VOLUME 10.7 fl (7.4-10.4); MONOCYTE # 0.9 10^3/ul (0.3-0.9); MONOCYTES % 9.4 % (0.0-11.0); NEUTROPHIL # 6.6 10^3/ul (1.6-7.5); NEUTROPHILS % 68.5 % (39.0-77.0); PLATELET COUNT 300 10^3/UL (140-415); RED BLOOD COUNT 3.48 10^6/ul (4.70-6.10); RED CELL DISTRIBUTION WIDTH 15.1 % (11.5-14.5)
[2019-01-06 06:19] LABS: WHITE BLOOD COUNT 9.6 10^3/ul (4.8-10.8)
[2019-01-06 06:51] LABS: ANION GAP 4 (5-13); BLOOD UREA NITROGEN 18 mg/dl (7-20); CALCIUM 8.4 mg/dl (8.4-10.2); CARBON DIOXIDE 34 mmol/L (21-31); CHLORIDE 96 mmol/L (97-110); CREATININE 0.49 mg/dl (0.61-1.24); Estimated GFR > 60 mL/min (>60); GLUCOSE 130 mg/dl (70-220); POTASSIUM 4.4 mmol/L (3.5-5.1); SODIUM 134 mmol/L (135-144)
[2019-01-06] MEDS: ARTIFICIAL TEARS 15 ML OPH BOTH EYES ×2 (10:33→21:00)
[2019-01-06] MEDS: FAMOTIDINE 20 MG TAB GTB ×2 (10:34→20:59)
[2019-01-06] MEDS: LISINOPRIL 10 MG TAB GTB (10:34)
[2019-01-06] MEDS: FUROSEMIDE 20 MG TAB GTB (10:34)
[2019-01-06] MEDS: BALSAM PERU/CASTOR OIL 60 GM TUBE TOP ×2 (10:36→21:01)
[2019-01-06] MEDS: DAKINS 0.0125%(1/40) 473 ML SOLUTION TP (10:36)
[2019-01-06] MEDS: COLLAGENASE 5 GM (UD JAR) TOP (10:36)
[2019-01-06 19:09] LABS: HEPATITIS B SURFACE ANTIGEN NEGATIVE (NEGATIVE)
[2019-01-06 19:25] LABS: HEPATITIS B SURFACE ANTIBODY NEGATIVE (NEGATIVE)
[2019-01-06 19:26] LABS: HEPATITIS C VIRAL ANTIBODY NEGATIVE (NEGATIVE); HIV 1&2 ANTIBODY NEGATIVE (NEGATIVE)
[2019-01-06] MEDS: INSULIN GLARGINE [LANTus] (100 UNITS/ML) SYG SC (20:59)
[2019-01-06] MEDS: METOPROLOL 5 MG INJ IV (21:04)
[2019-01-06] MEDS: SOD CHLORIDE 0.9% 500 ML IV (23:23)
[2019-01-07] MEDS: INSULIN ASPART [NOVOLOG] 3 ML PEN SC ×5 (00:23→23:56)
[2019-01-07] MEDS: PIPER-TAZO 3.375 GM IV (PMX) 100 ML IVPB ×3 (05:24→22:00)
[2019-01-07] MEDS: VALPROIC ACID LIQUID CUP 250 MG/5 ML CUP GTB ×3 (05:25→22:00)
[2019-01-07] MEDS: FAMOTIDINE 20 MG TAB GTB ×2 (08:49→20:17)
[2019-01-07] MEDS: FUROSEMIDE 20 MG TAB GTB (08:49)
[2019-01-07] MEDS: LISINOPRIL 10 MG TAB GTB (08:49)
[2019-01-07] MEDS: ARTIFICIAL TEARS 15 ML OPH BOTH EYES ×2 (08:50→20:17)
[2019-01-07] MEDS: DAKINS 0.0125%(1/40) 473 ML SOLUTION TP (08:51)
[2019-01-07] MEDS: BALSAM PERU/CASTOR OIL 60 GM TUBE TOP ×2 (08:51→20:23)
[2019-01-07] MEDS: COLLAGENASE 5 GM (UD JAR) TOP (08:51)
[2019-01-07] MEDS: INSULIN GLARGINE [LANTus] (100 UNITS/ML) SYG SC (20:47)
[2019-01-07] MEDS: ACETAMINOPHEN 325 MG TAB PO (22:00)
[2019-01-08] MEDS: PIPER-TAZO 3.375 GM IV (PMX) 100 ML IVPB ×3 (05:59→22:04)
[2019-01-08] MEDS: VALPROIC ACID LIQUID CUP 250 MG/5 ML CUP GTB ×3 (05:59→22:04)
[2019-01-08] MEDS: INSULIN ASPART [NOVOLOG] 3 ML PEN SC ×4 (06:09→23:57)
[2019-01-08] MEDS: LISINOPRIL 10 MG TAB GTB (08:57)
[2019-01-08] MEDS: FAMOTIDINE 20 MG TAB GTB ×2 (08:59→20:29)
[2019-01-08] MEDS: FUROSEMIDE 20 MG TAB GTB (09:00)
[2019-01-08] MEDS: COLLAGENASE 5 GM (UD JAR) TOP (09:00)
[2019-01-08] MEDS: DAKINS 0.0125%(1/40) 473 ML SOLUTION TP (09:00)
[2019-01-08] MEDS: BALSAM PERU/CASTOR OIL 60 GM TUBE TOP ×2 (09:01→20:32)
[2019-01-08] MEDS: ARTIFICIAL TEARS 15 ML OPH BOTH EYES ×2 (09:01→20:29)
[2019-01-08] MEDS: DIGOXIN 500 MCG INJ IV (15:53)
[2019-01-08] MEDS: ACETAMINOPHEN 325 MG TAB PO (15:57)
[2019-01-08] MEDS: INSULIN GLARGINE [LANTus] (100 UNITS/ML) SYG SC (20:51)
[2019-01-09] MEDS: VALPROIC ACID LIQUID CUP 250 MG/5 ML CUP GTB ×3 (06:05→21:29)
[2019-01-09] MEDS: PIPER-TAZO 3.375 GM IV (PMX) 100 ML IVPB ×3 (06:05→21:33)
[2019-01-09] MEDS: INSULIN ASPART [NOVOLOG] 3 ML PEN SC ×3 (06:31→18:31)
[2019-01-09] MEDS: FAMOTIDINE 20 MG TAB GTB ×2 (08:46→21:30)
[2019-01-09] MEDS: FUROSEMIDE 20 MG TAB GTB (08:47)
[2019-01-09] MEDS: LISINOPRIL 5 MG TAB GTB (08:47)
[2019-01-09] MEDS: COLLAGENASE 5 GM (UD JAR) TOP (08:47)
[2019-01-09] MEDS: BALSAM PERU/CASTOR OIL 60 GM TUBE TOP ×2 (08:48→21:38)
[2019-01-09] MEDS: DAKINS 0.0125%(1/40) 473 ML SOLUTION TP (08:48)
[2019-01-09] MEDS: ARTIFICIAL TEARS 15 ML OPH BOTH EYES ×2 (08:48→21:36)
[2019-01-09] MEDS: INSULIN GLARGINE [LANTus] (100 UNITS/ML) SYG SC (21:36)
[2019-01-09] MEDS: ACETAMINOPHEN 325 MG TAB PO (21:37)
[2019-01-10] MEDS: INSULIN ASPART [NOVOLOG] 3 ML PEN SC ×4 (00:34→17:07)
[2019-01-10] MEDS: VALPROIC ACID LIQUID CUP 250 MG/5 ML CUP GTB ×3 (05:49→21:00)
[2019-01-10] MEDS: PIPER-TAZO 3.375 GM IV (PMX) 100 ML IVPB ×3 (05:50→21:14)
[2019-01-10 08:28] LABS: ADD MAN DIFF? NO
[2019-01-10 08:42] LABS: BASOPHILS % 0.3 % (0.0-2.0); EOSINOPHILS # 1.1 10^3/ul (0.0-0.5); EOSINOPHILS % 11.2 % (0.0-7.0); HEMATOCRIT 27.1 % (42.0-52.0); HEMOGLOBIN 8.2 g/dl (14.0-18.0); LYMPHOCYTES # 1.1 10^3/ul (0.8-2.9); LYMPHOCYTES % 10.9 % (15.0-51.0); MEAN CORPUSCULAR HEMOGLOBIN 26.3 pg (29.0-33.0); MEAN CORPUSCULAR HGB CONC 30.3 g/dl (32.0-37.0); MEAN CORPUSCULAR VOLUME 86.9 fl (82.0-101.0); MEAN PLATELET VOLUME 11.4 fl (7.4-10.4); MONOCYTE # 0.8 10^3/ul (0.3-0.9); MONOCYTES % 8.1 % (0.0-11.0); NEUTROPHIL # 6.6 10^3/ul (1.6-7.5); NEUTROPHILS % 68.6 % (39.0-77.0); PLATELET COUNT 273 10^3/UL (140-415); POSITIVE DIFF @See below; RED BLOOD COUNT 3.12 10^6/ul (4.70-6.10); RED CELL DISTRIBUTION WIDTH 15.6 % (11.5-14.5)
[2019-01-10 08:42] LABS: WHITE BLOOD COUNT 9.7 10^3/ul (4.8-10.8)
[2019-01-10] MEDS: LISINOPRIL 5 MG TAB GTB (09:00)
[2019-01-10 09:13] LABS: ANION GAP 3 (5-13); BLOOD UREA NITROGEN 21 mg/dl (7-20); CALCIUM 8.5 mg/dl (8.4-10.2); CARBON DIOXIDE 34 mmol/L (21-31); CHLORIDE 98 mmol/L (97-110); CREATININE 0.42 mg/dl (0.61-1.24); Estimated GFR > 60 mL/min (>60); GLUCOSE 154 mg/dl (70-220); POTASSIUM 3.8 mmol/L (3.5-5.1); SODIUM 135 mmol/L (135-144)
[2019-01-10] MEDS: DAKINS 0.0125%(1/40) 473 ML SOLUTION TP (09:28)
[2019-01-10] MEDS: COLLAGENASE 5 GM (UD JAR) TOP (09:28)
[2019-01-10] MEDS: FUROSEMIDE 20 MG TAB GTB (09:30)
[2019-01-10] MEDS: FAMOTIDINE 20 MG TAB GTB ×2 (09:30→20:50)
[2019-01-10] MEDS: BALSAM PERU/CASTOR OIL 60 GM TUBE TOP ×2 (09:48→20:53)
[2019-01-10] MEDS: ARTIFICIAL TEARS 15 ML OPH BOTH EYES ×2 (09:49→20:53)
[2019-01-10] MEDS: ACETAMINOPHEN 325 MG TAB PO (20:49)
[2019-01-10] MEDS: INSULIN GLARGINE [LANTus] (100 UNITS/ML) SYG SC (20:52)
[2019-01-11] MEDS: INSULIN ASPART [NOVOLOG] 3 ML PEN SC ×4 (00:17→17:20)
[2019-01-11] MEDS: VALPROIC ACID LIQUID CUP 250 MG/5 ML CUP GTB ×3 (05:37→21:32)
[2019-01-11] MEDS: PIPER-TAZO 3.375 GM IV (PMX) 100 ML IVPB ×3 (05:38→21:32)
[2019-01-11] MEDS: FUROSEMIDE 20 MG TAB GTB (09:00)
[2019-01-11] MEDS: LISINOPRIL 5 MG TAB GTB (09:00)
[2019-01-11] MEDS: COLLAGENASE 5 GM (UD JAR) TOP (09:42)
[2019-01-11] MEDS: DAKINS 0.0125%(1/40) 473 ML SOLUTION TP (09:45)
[2019-01-11] MEDS: BALSAM PERU/CASTOR OIL 60 GM TUBE TOP ×2 (09:45→20:23)
[2019-01-11] MEDS: ARTIFICIAL TEARS 15 ML OPH BOTH EYES ×2 (09:47→20:23)
[2019-01-11] MEDS: FAMOTIDINE 20 MG TAB GTB ×2 (09:48→20:21)
[2019-01-11] MEDS: ACETAMINOPHEN 325 MG TAB PO (11:16)
[2019-01-11] MEDS: D5W-0.45 NACL + KCL 20 MEQ 1,000 ML IV (14:56)
[2019-01-11 16:58] LABS: INR 1.19; PROTIME 15.2 Sec (11.9-14.9); PT RATIO 1.2
[2019-01-11] MEDS: INSULIN GLARGINE [LANTus] (100 UNITS/ML) SYG SC (20:37)
[2019-01-12] MEDS: INSULIN ASPART [NOVOLOG] 3 ML PEN SC ×4 (01:27→18:00)
[2019-01-12] MEDS: VALPROIC ACID LIQUID CUP 250 MG/5 ML CUP GTB ×3 (05:54→21:13)
[2019-01-12] MEDS: PIPER-TAZO 3.375 GM IV (PMX) 100 ML IVPB ×3 (05:54→21:17)
[2019-01-12] MEDS: D5W-0.45 NACL + KCL 20 MEQ 1,000 ML IV ×2 (05:55→15:00)
[2019-01-12 08:00] LABS: ADD MAN DIFF? NO
[2019-01-12 08:05] LABS: WHITE BLOOD COUNT 11.6 10^3/ul (4.8-10.8)
[2019-01-12 08:05] LABS: BASOPHILS % 0.3 % (0.0-2.0); EOSINOPHILS # 1.2 10^3/ul (0.0-0.5); EOSINOPHILS % 10.3 % (0.0-7.0); HEMATOCRIT 27.5 % (42.0-52.0); HEMOGLOBIN 8.4 g/dl (14.0-18.0); LYMPHOCYTES # 1.1 10^3/ul (0.8-2.9); LYMPHOCYTES % 9.7 % (15.0-51.0); MEAN CORPUSCULAR HEMOGLOBIN 26.5 pg (29.0-33.0); MEAN CORPUSCULAR HGB CONC 30.5 g/dl (32.0-37.0); MEAN CORPUSCULAR VOLUME 86.8 fl (82.0-101.0); MEAN PLATELET VOLUME 10.6 fl (7.4-10.4); MONOCYTE # 1.1 10^3/ul (0.3-0.9); MONOCYTES % 9.6 % (0.0-11.0); NEUTROPHILS % 69.2 % (39.0-77.0); PLATELET COUNT 329 10^3/UL (140-415); RED BLOOD COUNT 3.17 10^6/ul (4.70-6.10); RED CELL DISTRIBUTION WIDTH 15.4 % (11.5-14.5)
[2019-01-12 08:29] LABS: ANION GAP 4 (5-13); BLOOD UREA NITROGEN 15 mg/dl (7-20); CALCIUM 8.2 mg/dl (8.4-10.2); CARBON DIOXIDE 33 mmol/L (21-31); CHLORIDE 99 mmol/L (97-110); CREATININE 0.41 mg/dl (0.61-1.24); Estimated GFR > 60 mL/min (>60); GLUCOSE 124 mg/dl (70-220); POTASSIUM 4.3 mmol/L (3.5-5.1); SODIUM 136 mmol/L (135-144)
[2019-01-12] MEDS: FUROSEMIDE 20 MG TAB GTB (08:57)
[2019-01-12] MEDS: FAMOTIDINE 20 MG TAB GTB ×2 (08:57→21:13)
[2019-01-12] MEDS: LISINOPRIL 5 MG TAB GTB (08:58)
[2019-01-12] MEDS: ARTIFICIAL TEARS 15 ML OPH BOTH EYES ×2 (08:58→21:14)
[2019-01-12] MEDS: COLLAGENASE 5 GM (UD JAR) TOP (08:58)
[2019-01-12] MEDS: DAKINS 0.0125%(1/40) 473 ML SOLUTION TP (09:00)
[2019-01-12] MEDS: BALSAM PERU/CASTOR OIL 60 GM TUBE TOP ×2 (09:03→21:17)
[2019-01-12] MEDS ORDERED: MIDAZOLAM 1 MG/ML 2 ML INJ (16:00)
[2019-01-12] MEDS ORDERED: FENTAnyl 50 MCG/ML VIAL (16:00)
[2019-01-12] MEDS ORDERED: PHENYLephrine 10 MG INJ (16:27)
[2019-01-12] MEDS ORDERED: CEFAZOLIN 1 GM INJ (16:58)
[2019-01-12] MEDS: INSULIN GLARGINE [LANTus] (100 UNITS/ML) SYG SC (21:45)
[2019-01-13] MEDS: INSULIN ASPART [NOVOLOG] 3 ML PEN SC ×4 (00:13→17:58)
[2019-01-13] MEDS: VALPROIC ACID LIQUID CUP 250 MG/5 ML CUP GTB ×3 (05:28→21:03)
[2019-01-13] MEDS: PIPER-TAZO 3.375 GM IV (PMX) 100 ML IVPB ×3 (05:28→21:05)
[2019-01-13] MEDS: FAMOTIDINE 20 MG TAB GTB ×2 (08:31→21:02)
[2019-01-13] MEDS: FUROSEMIDE 20 MG TAB GTB (08:32)
[2019-01-13] MEDS: LISINOPRIL 5 MG TAB GTB (08:33)
[2019-01-13] MEDS: ARTIFICIAL TEARS 15 ML OPH BOTH EYES ×2 (10:10→21:04)
[2019-01-13] MEDS: COLLAGENASE 5 GM (UD JAR) TOP (10:10)
[2019-01-13] MEDS: BALSAM PERU/CASTOR OIL 60 GM TUBE TOP ×2 (10:13→21:59)
[2019-01-13] MEDS: DAKINS 0.0125%(1/40) 473 ML SOLUTION TP (12:42)
[2019-01-13] MEDS: INSULIN GLARGINE [LANTus] (100 UNITS/ML) SYG SC (22:00)
[2019-01-14] MEDS: ACETAMINOPHEN 325 MG TAB PO (00:36)
[2019-01-14] MEDS: PIPER-TAZO 3.375 GM IV (PMX) 100 ML IVPB (05:19)
[2019-01-14] MEDS: VALPROIC ACID LIQUID CUP 250 MG/5 ML CUP GTB ×2 (05:19→13:40)
[2019-01-14] MEDS: INSULIN ASPART [NOVOLOG] 3 ML PEN SC ×3 (05:32→11:55)
[2019-01-14] MEDS: LISINOPRIL 5 MG TAB GTB (09:00)
[2019-01-14] MEDS: COLLAGENASE 5 GM (UD JAR) TOP (09:10)
[2019-01-14] MEDS: ARTIFICIAL TEARS 15 ML OPH BOTH EYES (09:10)
[2019-01-14] MEDS: FUROSEMIDE 20 MG TAB GTB (09:11)
[2019-01-14] MEDS: FAMOTIDINE 20 MG TAB GTB (09:12)
[2019-01-14] MEDS: BALSAM PERU/CASTOR OIL 60 GM TUBE TOP (09:17)
[2019-01-14] MEDS: DAKINS 0.0125%(1/40) 473 ML SOLUTION TP (09:17)
== END 2019-01-14 14:26 | DRG 853 ==
LOC: TEL 12-13 01:51 → E/R 08:55 → TEL 11:47 → ICU 22:02
PROC: 0KBP0ZZ Excision of Left Hip Muscle, Open Approach (ICD-10-PCS; 2019-01-12 15:30)
PROC: 0KBN0ZZ Excision of Right Hip Muscle, Open Approach (ICD-10-PCS; 2019-01-12 15:30)
PROC: 0D9Q0ZZ Drainage of Anus, Open Approach (ICD-10-PCS; 2019-01-12 15:30)
PROC: 0KBP0ZZ Excision of Left Hip Muscle, Open Approach (ICD-10-PCS; principal; 2019-01-12 15:32)
PROC: 0KBN0ZZ Excision of Right Hip Muscle, Open Approach (ICD-10-PCS; 2019-01-12 15:32)
PROC: 0J973ZZ Drainage of Back Subcutaneous Tissue and Fascia, Percutaneous Approach (ICD-10-PCS; 2019-01-12 15:32)
PROC: 30233N1 Transfusion of Nonautologous Red Blood Cells into Peripheral Vein, Percutaneous Approach (ICD-10-PCS; 2019-01-12 15:32)
PROC: 5A1955Z Respiratory Ventilation, Greater than 96 Consecutive Hours (ICD-10-PCS; 2019-01-12 15:32)
DX: A41.9 Sepsis, unspecified organism (principal); L89.154 Pressure ulcer of sacral region, stage 4; J18.9 Pneumonia, unspecified organism; I50.23 Acute on chronic systolic (congestive) heart failure; J96.21 Acute and chronic respiratory failure with hypoxia; G91.9 Hydrocephalus, unspecified; N39.0 Urinary tract infection, site not specified; Z68.41 Body mass index [BMI] 40.0-44.9, adult; I48.92 Unspecified atrial flutter; Z99.11 Dependence on respirator [ventilator] status; G93.49 Other encephalopathy; L02.212 Cutaneous abscess of back [any part, except buttock and flank]; D63.8 Anemia in other chronic diseases classified elsewhere; E11.9 Type 2 diabetes mellitus without complications; E66.01 Morbid (severe) obesity due to excess calories; E78.5 Hyperlipidemia, unspecified; G93.89 Other specified disorders of brain; I11.0 Hypertensive heart disease with heart failure; I25.10 Atherosclerotic heart disease of native coronary artery without angina pectoris; I25.5 Ischemic cardiomyopathy; I69.298 Other sequelae of other nontraumatic intracranial hemorrhage; J44.9 Chronic obstructive pulmonary disease, unspecified; K21.9 Gastro-esophageal reflux disease without esophagitis; L89.621 Pressure ulcer of left heel, stage 1; L98.8 Other specified disorders of the skin and subcutaneous tissue; M19.90 Unspecified osteoarthritis, unspecified site; R13.10 Dysphagia, unspecified; B96.1 Klebsiella pneumoniae [K. pneumoniae] as the cause of diseases classified elsewhere; B96.4 Proteus (mirabilis) (morganii) as the cause of diseases classified elsewhere; B95.2 Enterococcus as the cause of diseases classified elsewhere; Z16.12 Extended spectrum beta lactamase (ESBL) resistance; Z16.24 Resistance to multiple antibiotics; Z16.21 Resistance to vancomycin; Z22.322 Carrier or suspected carrier of Methicillin resistant Staphylococcus aureus; Z98.2 Presence of cerebrospinal fluid drainage device; Z95.5 Presence of coronary angioplasty implant and graft; Z93.1 Gastrostomy status; Z93.0 Tracheostomy status; Z79.4 Long term (current) use of insulin
CPT/HCPCS: 36415; 36430; 36600; 70450; 71045; 71250; 72170; 74176; 78806; 80048; 80053; 80202; 81001; 81003; 82270; 82565; 82803; 82962; 83036; 83605; 83735; 84145; 84484; 84520; 85025; 85610; 85730; 86703; 86706; 86803; 86850; 86900; 86901; 86920; 87040-91; 87070; 87075; 87081; 87086; 87102; 87340; 88304; 88305; 89220; 93005; 93971; 94002; 94003; 94664; 96365; 96366; 96368; 99285-25